=== PATIENT | male | born 1945 | race Caucasian/White ===

== ENCOUNTER 2021-02-16 06:46 | Day surgery (SDC) | payer BC ==
--- NOTE | 2021-02-14 11:29 | EKG ---
Test Date: 2021-02-13 Test Time: 14:06:11 Erp Project Manager: MORELIA MEASUREMENT RESULTS: Intervals: Rate: 68 HI: 142 QRSD: 88 QT: 406 QTc: 431 [place]: P: 68 HI: 142 QRS: 48 T: 34 INTERPRETIVE STATEMENTS: Normal sinus rhythm Normal ECG Compared to ECG 03/18/2005 15:03:00 No significant changes Electronically Signed On 02-14-21 11:26:43 CDT by Eric Edmond
[2021-02-16] MEDS ORDERED: FENTANYL CITR 100 MCG/2 ML ONE (07:24)
[2021-02-16] MEDS ORDERED: dexAMETHasone 10 MG/ML VIAL ONE (07:26)
[2021-02-16] MEDS ORDERED: MIDAZOLAM HCL 2 MG/2 ML INJ ONE (07:26)
[2021-02-16] MEDS ORDERED: ROCURONIUM 50 MG/5 ML VIAL IV ONE (07:26)
[2021-02-16] MEDS ORDERED: propofoL 200 MG/20 ML VIAL IV ONE (07:26)
[2021-02-16] MEDS ORDERED: LIDOCAINE 2% MPF 5 ML VIAL ONE (07:26)
[2021-02-16] MEDS ORDERED: Ringers Lactate 1,000 ML IV ONE (07:32)
[2021-02-16] MEDS ORDERED: LIDOCAINE 1% W/EPI 1:100,000 MDV 20 ML VIAL ONE (07:49)
[2021-02-16] MEDS ORDERED: EPINEPHRINE/PF 1 MG/ML AMP ONE (07:49)
--- NOTE | 2021-02-16 08:44 | P.BOP ---
Preoperative diagnosis: neoplasm uncertain behavior, larynx (epiglottis) Postoperative diagnosis: same Primary procedure: DL with telescope and biopsy Pipe Joints Supervisor: NONE,NONE Estimated blood loss: <5ml Specimen: left lingual surface of epiglottis Findings: small rounnd nodule of epiglottis, radiation changes to larynx and neck Anesthesia: General Complications: None Implants: none Fluids & blood products: crystalloid 700ml Transferred to: Recovery Room Condition: Good
[2021-02-16] MEDS ORDERED: GLYCOPYRROLATE 0.2 MG/ML SYR ONE (08:50)
[2021-02-16] MEDS ORDERED: NEOSTIGMINE 1 MG/ML -5 ML ONE (08:50)
[2021-02-16 10:04] VITALS: BP 115/58; TEMP 97.4; O2SAT 99
--- NOTE | 2021-02-16 11:46 | OP ---
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 Procedure: Direct laryngoscopy with telescope and biopsy. Indication For Procedure: Mr. Morales was evaluated by his PCP with some concern for palpable abnormalit y of the right neck and was referred back to his radiation oncologist, Dr. De León. He performed a flexible laryngoscopy and CT scan of the neck and noted a lesion of the epiglottis [facility] An office flexible laryngoscopy by ma demonstrated a small round nodular versus warty appearing lesion on the lingual surface of the left epiglottis and soft tissue radiatio n changes consistent with his history of prior radiation therapy for head and neck cancer. Due to hi s history, a recommendation was made for operative intervention including biopsy. Description Of Procedure In Detail: The patient was brought to the operating room. He was placed un ankush general anesthesia via oral endotracheal tube. A small shoulder roll was placed and the neck was extended and head supported. He was noted to be somewhat of a difficult intubation due to decreased extension of the neck and anterior placement of the larynx. A direct laryngoscopy was performed usi ng the Krishna laryngoscope. The true vocal folds were difficult to visualize due to the obstructio n from the endotracheal tube, and due to the previous flexible laryngoscopy with visualizations of th e vocal cords, this was not removed. The arytenoids did not have any mucosal lesions, though the are a did appear fibrotic consistent with history of radiation. The epiglottis was well visualized using the Krishna laryngoscope and a 15 degree rigid scope was used to perform photo documentation. The lesion was then grasped with a large cup forceps and a laryngeal scissors angled to the left was used to incise the mucosa surrounding the lesion until it was removed in its entirety. An epinephrine-so aked cottonoid was placed over the biopsy site for several minutes to aid in hemostasis. The specime n was sent to Pathology for permanent section. After removal of the pledget, the area appeared hemos tatic and additional photo documentation of the biopsy site was obtained. The Krishna was removed. The lips, tongue, gingiva, and mandible and remaining teeth all appeared without significant abnorma lity or evidence of injury. The patient was returned to care of Anesthesia for awakening and extubat ion in the operating room, which proceeded without difficulty. Complications: None. Fluids: 700 mL crystalloid. Estimated Blood Loss: Less than 5 mL. Disposition: The patient will be discharged home later today and follow up with Dr. Nelson's office in about 10 days to review the pathology results. BECKY/MEEK Voice ID: [id number] Report ID: [id number]
== END 2021-02-16 09:53 | disposition home or self-care (01) ==
LOC: OR 06:46
PROVIDERS: ATTEND Otolaryngology
PROC: 0CBR8ZX Excision of Epiglottis, Via Natural or Artificial Opening Endoscopic, Diagnostic (ICD-10-PCS; principal; 2021-02-16 07:45)
DX: D38.0 Neoplasm of uncertain behavior of larynx (principal); Z20.822 Contact with and (suspected) exposure to COVID-19; Z85.810 Personal history of malignant neoplasm of tongue
CPT/HCPCS: 93005; 88305; 31536; U0003; J2704; J0171; J2250; J3010; J1100; J2710; J7120

== ENCOUNTER 2024-07-11 01:19 | Inpatient (IN) | payer OTHER ==
[2024-07-11 02:27] LABS: Absolute Eosinophils 0.2 K/uL (0-0.5); Absolute Lymphocytes (CBC) 0.8 K/uL (0.7-4.9); Absolute Neutrophil 10.3 K/uL (1.8-8.0); Basophils % 0.3 % (0-1.3); Eosinophils % 1.7 % (0-4.4); Hemoglobin 13.3 g/dL (13.6-17.9); Lymphocytes % 6.6 % (15.3-44.8); MCH 32.6 pg (27.0-35.0); MCV 95.8 fL (80-100); MPV 8.5 fL (7.6-11.3); Monocytes % 8.1 % (3.3-12.3); Neutrophils % 83.3 % (41.7-73.7); Platelets 142 thou/uL (152-406); RBC Red Blood Cell Count 4.07 M/uL (4.33-5.43); Red Cell Distribution Width 13.8 % (12.1-15.2)
[2024-07-11 02:48] LABS: Albumin 3.2 g/dL (3.4-5.0); Albumin/Globulin Ratio 0.8 (1.1-1.8); Anion Gap 7.8 mEq/L (5.0-15.0); Bilirubin Total 0.7 mg/dL (0.2-1.0); Globulin 3.9 g/dL (2.3-3.5); Potassium 3.8 mEq/L (3.5-5.1); Protein, Total 7.1 g/dL (6.4-8.2); Troponin High Sensitivity 7.4 pg/mL (<58.9)
[2024-07-11 02:53] LABS: PT Prothrombin Time 11.3 SECONDS (9.4-12.5); PTT, Activated Partial Thromb 31.1 SECONDS (24.3-36.9); Protime INR 1.08
[2024-07-11 02:54] LABS: Arterial Blood Carboxyhemoglob 1.1 % (0-1.5); Blood Gas Oxyhemoglobin 89.7 % (94-97); Blood Gas THB 12.9 g/dl (12-18); Blood O2 Saturation 92.6 % (92-98.5)
[2024-07-11] MEDS ORDERED: ONDANSETRON 4 MG/2 ML VIAL ONE (03:10)
[2024-07-11] MEDS ORDERED: VANCOMYCIN 1 GM/VIAL ONE (03:10)
[2024-07-11] MEDS ORDERED: GUAIFENESIN/DM 5 ML UCUP ONE (03:11)
[2024-07-11] MEDS ORDERED: ACETAMINOPHEN 500 MG TAB ONE (03:11)
[2024-07-11] MEDS ORDERED: NA CHLORIDE 0.9% 100 ML ONE ×2 (03:12→11:25)
[2024-07-11] MEDS ORDERED: NA CHLORIDE 0.9% 1,000 ML ONE ×2 (03:12→07:23)
[2024-07-11] MEDS ORDERED: NA CHLORIDE 0.9% 250 ML ONE (03:12)
[2024-07-11] MEDS ORDERED: CEFEPIME 1 GM/VIAL ONE (03:13)
[2024-07-11] MEDS: guaiFENesin 100 MG/5 ML UCUP ONE (03:15)
[2024-07-11] MEDS: GUAIFENESIN/DM 5 ML UCUP ONE (03:21)
[2024-07-11] MEDS ORDERED: ALBUTEROL 2.5 MG/3 ML NEB SOL ONE ×3 (04:12→11:36)
[2024-07-11] MEDS ORDERED: IPRATROPIUM BROM 0.5MG/2.5ML ONE ×2 (04:13→07:23)
[2024-07-11 05:43] LABS: Specific Gravity > 1.030 (1.005-1.030); Urine Bilirubin NEGATIVE (Negative); Urine Blood Negative (Negative); Urine Clarity Clear (Clear); Urine Color Colorless (Yellow); Urine Glucose NEGATIVE (Negative); Urine Ketones NEGATIVE (Negative); Urine Microscopic Reflex YN NO UMIC; Urine Nitrite NEGATIVE (Negative); Urine Protein NEGATIVE (Negative); Urine Urobilinogen Normal (Normal)
--- NOTE | 2024-07-11 06:07 | EDPHYS ---
Physician Documentation [facility] Name: Thad Morales Age: 78 yrs Sex: Male : 1945 Arrival Date: 07/11/2024 Time: 01:19 Bed 20 Private MD: Rj Small ED Physician Doug Gold HPI: 07/11 01:27 This 78 yrs old Male presents to ER via Unassigned with complaints of Fever, sp4 Chest Congestion. 05:50 Patient presents with fever cough and chest discomfort.. sp4 06:07 78-year-old male with history of NM, throat cancer and pneumonia presents with sp4 worsening fever chest congestion and shortness of breath.. Historical: - Allergies: :28 No Known Allergies; ha1 - PMHx: 01:28 Myocardial infarction; Pneumonia; THROAT CANCER; ha1 - PSHx: 01:28 HEART BYPASS 2017; ha1 - Immunization history:: Adult Immunizations up to date. - Infectious Disease History:: Denies. - Social history:: Smoking status: Patient denies any tobacco usage or history of. - Family history:: not pertinent. ROS: 06:07 Constitutional: Positive fever, positive congestion, positive chest discomfort, sp4 positive shortness of breath 06:07 All other systems are negative, Exam: 06:05 Constitutional: This is a well developed, well nourished patient who is awake, alert, sp4 and in no acute distress. Head/Face: Normocephalic, atraumatic. Eyes: Pupils equal round and reactive to light, extra-ocular motions intact. Lids and lashes normal. Conjunctiva and sclera are not injected. Cornea within normal limits. Periorbital areas with no swelling, redness, or edema. ENT: Nares patent. No nasal discharge, no septal abnormalities noted. Tympanic membranes are normal and external auditory canals are clear. Oropharynx with no redness, swelling, or masses, exudates, or evidence of obstruction, uvula midline. Mucous membranes moist. Neck: Trachea midline, no thyromegaly or masses palpated, and no cervical lymphadenopathy. Supple, full range of motion without nuchal rigidity, or vertebral point tenderness. Chest/axilla: Normal chest wall appearance and motion. Nontender with no deformity. No lesions are appreciated. Cardiovascular: Regular rate and rhythm with a normal S1 and S2. No gallops, murmurs, or rubs. Normal PMI, no JVD. No pulse deficits. Respiratory: Lungs have equal breath sounds bilaterally, clear to auscultation and percussion. No rales, rhonchi or wheezes noted. No increased work of breathing, no retractions or nasal flaring. Abdomen/GI: Soft, with normal bowel sounds. No distension or tympany. No guarding or rebound. No evidence of tenderness throughout. Back: No spinal tenderness. No costovertebral tenderness. Skin: Warm, dry with normal turgor. Normal color with no rashes, no lesions, and no evidence of cellulitis. MS/ Extremity: Pulses equal, no cyanosis. Neurovascular intact. Full, normal range of motion. Neuro: Awake and alert, GCS 15, oriented to person, place, time, and situation. Cranial nerves II-XII grossly intact. Motor strength 5/5 in all extremities. Sensory grossly intact. Psych: Awake, alert, with orientation to person, place and time. Behavior, mood, and affect are within normal limits 06:05 ECG was reviewed by the Attending Physician. EKG 0 356 normal sinus rhythm rate 99. Vital Signs: 01:22 BP 134 / 68; Pulse 113; Resp 20 S; Temp 100.2(O); Pulse Ox 89% on R/A; Weight 49.44 kg; ha1 Height 5 ft. 7 in. ; 02:15 BP 128 / 70; Pulse 104; Resp 19 S; Pulse Ox 96% on 2 lpm NC; ha1 03:15 BP 118 / 66; Pulse 101; Resp 19 S; Pulse Ox 96% on 2 lpm NC; ha1 01:22 Body Mass Index 17.07 (49.44 kg, 170.18 cm) ha1 [place] Coma Score: 01:30 Eye Response: spontaneous(4). Motor Response: obeys commands(6). Verbal Response: ay oriented(5). Total: 15. 06:05 Eye Response: spontaneous(4). Motor Response: obeys commands(6). Verbal Response: sp4 oriented(5). Total: 15. MDM: 01:33 Medical Screening Exam initiated sp4 06:05 Data reviewed: vital signs, nurses notes, lab test result(s), EKG, radiologic studies, sp4 CT scan. 07/11 01:28 Order name: Influenza Screen (a \T\ B) sp4 07/11 01:47 Order name: Blood Culture Adult (2) sp4 07/11 01:47 Order name: CBC with Diff; Complete Time: 02:49 sp4 07/11 01:47 Order name: CMP; Complete Time: 05:49 sp4 07/11 01:47 Order name: Lactate w/ 2H reflex if indic.; Complete Time: 05:49 sp4 07/11 01:47 Order name: Protime (+inr); Complete Time: 05:49 sp4 07/11 01:47 Order name: Ptt, Activated; Complete Time: 05:49 sp4 07/11 01:47 Order name: Urinalysis w/ reflexes; Complete Time: 05:49 sp4 07/11 01:47 Order name: ABG; Complete Time: 05:49 sp4 07/11 01:47 Order name: Troponin High Sensitivity; Complete Time: 05:49 sp4 07/11 01:47 Order name: BNP; Complete Time: 05:49 sp4 07/11 04:17 Order name: Glucose, Ancillary Testing; Complete Time: 05:49 EDMS 07/11 08:23 Order name: SARS RAPID aa5 07/11 08:23 Order name: RSV aa5 07/11 09:06 Order name: SARS-COV-2 Antigen Rapid EDLA 07/11 09:07 Order name: Respiratory Syncytial Virus Ag EDLA 07/11 01:53 Order name: CT Chest, Abdomen, Pelvis - W/Contrast sp4 07/11 01:47 Order name: EKG; Complete Time: 01:47 sp4 07/11 01:47 Order name: Accucheck; Complete Time: 03:46 sp4 07/11 01:47 Order name: Cardiac monitoring; Complete Time: 02:11 sp4 07/11 01:47 Order name: EKG - Nurse/Tech; Complete Time: 04:00 sp4 07/11 01:47 Order name: IV Saline Lock - Large Bore; Complete Time: 03:45 sp4 07/11 01:47 Order name: Labs collected and sent; Complete Time: 02:10 sp4 07/11 01:47 Order name: O2 Per Protocol; Complete Time: 02:10 sp4 07/11 01:47 Order name: O2 Sat Monitoring; Complete Time: 02:11 sp4 07/11 01:47 Order name: Vital Signs; Complete Time: 03:45 sp4 EC:56 Rate is 99 beats/min. Rhythm is regular, Normal Sinus Rhythm. QRS [place] is Normal. MO sp4 interval is normal. QRS interval is normal. QT interval is normal. No Q waves. T waves are Normal. No ST changes noted. Clinical impression: No evidence of ischemia. Interpreted by me. Reviewed by me. Administered Medications: 03:35 Drug: Cefepime IVPB 1 grams IVPB at 200 ml/hr once over 30 mins; (mix in NS 100 mL) ay Route: IVPB; Rate: 200 ml/hr; Infused Over: 30 mins; Site: left forearm; 04:09 Follow up: Response: No adverse reaction; IV Status: Completed infusion; IV Intake: ay 100ml 03:35 Drug: Ondansetron IVP 4 mg IVP once; over 2 minutes Route: IVP; Site: left forearm; ay 04:09 Follow up: Response: No adverse reaction ay 03:36 Drug: NS 0.9% IV (30 ml/kg) 30 ml/kg IV at bolus once; Sepsis Protocol; to be given as ay a bolus over 90 minutes Route: IV; Rate: bolus; Site: left forearm; 04:09 Drug: Acetaminophen PO 1000 mg PO once Route: PO; ay 04:10 Drug: Dextromethorphan-Guaifenesin PO Liquid 10 mg-100 mg/5 mL 10 ml PO once Route: PO; ay 04:27 Follow up: Response: No adverse reaction ay 04:19 Drug: Albuterol Inhalation 2.5 mg Inhalation once Route: Inhalation; ay 04:19 Drug: Ipratropium Inhalation Aerosol 0.5 mg Inhalation once Route: Inhalation; ay 07:19 Drug: vancoMYCIN IVPB 1 grams IVPB once over 2 hrs Route: IVPB; Infused Over: 2 hrs; ay Site: left forearm; 07:37 Drug: Albuterol Inhalation 2.5 mg Inhalation once Route: Inhalation; aa5 07:37 Drug: Ipratropium Inhalation Aerosol 0.5 mg Inhalation once Route: Inhalation; aa5 07:38 Drug: NS 0.9% IV 1000 ml IV at 100 ml/hr Per protocol; to be given as a bolus over 60 aa5 minutes {Note: administered at 100mls/hr .} Route: IV; Rate: 100 ml/hr; Site: left forearm; Disposition Summary: 07/11/24 06:07 Hospitalization Ordered Notes: Hospitalization Status: Inpatient Admission sp4 Provider: Rj Small sp4 Condition: Fair sp4 Problem: new sp4 Symptoms: have improved sp4 Bed/Room Type: Standard sp4 Location: Telemetry/MedSurg (Inpatient)(07/11/24 14:15) eb Room Assignment: [facility](07/11/24 14:17) eb Diagnosis - Acute multifocal pneumonia, hypoxemia sp4 Forms: - Medication Reconciliation Form sp4 - SBAR form sp4 - Leadership Thank You Letter sp4 Signatures: Dispatcher [employer] EDMS Paty Menard, RN RN [email or web address] Jo Gutierrez Heidy RN RN ha1 Doug Gold MD MD sp4 Mayco Wayne RN KENYA ay Corrections: (The following items were deleted from the chart) 01:53 01:53 Chest Abdomen Pelvis W Con+CT.RAD.BRZ ordered. EDMS EDMS 10:06 06:07 Telemetry/MedSurg (Inpatient) sp4 eb 10:06 06:07 sp4 eb 14:15 10:06 BR ER HOLD eb eb 14:15 10:06 ERHOLD- eb eb 14:17 14:15 403 eb eb
--- NOTE | 2024-07-11 06:07 | ER ---
Nurse's Notes [facility] Name: Thad Morales Age: 78 yrs Sex: Male : 1945 Arrival Date: 07/11/2024 Time: 01:19 Bed 20 Private MD: Rj Small Diagnosis: Acute multifocal pneumonia, hypoxemia Presentation: 07/11 01:22 Chief complaint: Patient states: COUGH, FEVER, NASAL CONGESTION, AND DIFFICULTY ha1 BREATHING. 01:22 Coronavirus screen: Client denies travel out of the [place] in the last 14 days. Ebola ha1 Screen: No symptoms or risks identified at this time. Initial Sepsis Screen: Does the patient meet any 2 criteria? No. Patient's initial sepsis screen is negative. Does the patient have a suspected source of infection? No. Patient's initial sepsis screen is negative. Risk Assessment: Do you want to hurt yourself or someone else? Patient reports no desire to harm self or others. Onset of symptoms was July 11, 2024. 01:22 Method Of Arrival: Ambulatory ha1 01:22 Acuity: ADARSH 2 ha1 01:57 Initial Sepsis Screen: Does the patient meet any 2 criteria? Temp <36.0*C (96.8*F)) or ha1 > 38.3*C (100.9*F). HR > 90 bpm. Yes. Triage Assessment: :28 General: Appears uncomfortable, Behavior is cooperative. Pain: Denies pain. Neuro: ha1 Level of Consciousness is awake, alert, obeys commands, Oriented to person, place, time, situation. Cardiovascular: Capillary refill < 3 seconds Patient's skin is warm and dry. Respiratory: Reports shortness of breath at rest on exertion cough that is dry, hacking, persistent Airway is patent Respiratory effort is even, unlabored, Respiratory pattern is regular, symmetrical. Historical: - Allergies: : No Known Allergies; ha1 - PMHx: :28 Myocardial infarction; Pneumonia; THROAT CANCER; ha1 - PSHx: 01:28 HEART BYPASS 2017; ha1 - Immunization history:: Adult Immunizations up to date. - Infectious Disease History:: Denies. - Social history:: Smoking status: Patient denies any tobacco usage or history of. - Family history:: not pertinent. Screenin:06 [facility] ED Fall Risk Assessment (Adult) History of falling in the last 3 months, ha1 including since admission No falls in past 3 months (0 pts) Confusion or Disorientation No (0 pts) Intoxicated or Sedated No (0 pts) Impaired Gait No (0 pts) Mobility Assist Device Used No (0 pt) Altered Elimination No (0 pt) Score/Fall Risk Level 0 - 2 = Low Risk Oriented to surroundings, Maintained a safe environment, Educated pt \T\ family on fall prevention, incl call for assistance when getting out of bed, Hourly rounding (assess needs \T\ fall precautionary measures) done. Abuse screen: Denies threats or abuse. Denies injuries from another. Nutritional screening: No deficits noted. Tuberculosis screening: No symptoms or risk factors identified. Assessment: 01:30 General: Appears in no apparent distress. uncomfortable, Behavior is calm, cooperative. ay Pain: Denies pain. Neuro: Level of Consciousness is awake, alert, obeys commands, Oriented to person, place, time, situation. Cardiovascular: Denies chest pain, nausea, shortness of breath, vomiting, Capillary refill < 3 seconds. Respiratory: Reports cough that is non-productive, Airway is patent Respiratory effort is even, unlabored, Respiratory pattern is regular, symmetrical. GI: No signs and/or symptoms were reported involving the gastrointestinal system. : No signs and/or symptoms were reported regarding the genitourinary system. EENT: No signs and/or symptoms were reported regarding the EENT system. Derm: No signs and/or symptoms reported regarding the dermatologic system. Vital Signs: 01:22 BP 134 / 68; Pulse 113; Resp 20 S; Temp 100.2(O); Pulse Ox 89% on R/A; Weight 49.44 kg; ha1 Height 5 ft. 7 in. ; 02:15 BP 128 / 70; Pulse 104; Resp 19 S; Pulse Ox 96% on 2 lpm NC; ha1 03:15 BP 118 / 66; Pulse 101; Resp 19 S; Pulse Ox 96% on 2 lpm NC; ha1 01:22 Body Mass Index 17.07 (49.44 kg, 170.18 cm) ha1 [place] Coma Score: 01:30 Eye Response: spontaneous(4). Motor Response: obeys commands(6). Verbal Response: ay oriented(5). Total: 15. 06:05 Eye Response: spontaneous(4). Motor Response: obeys commands(6). Verbal Response: sp4 oriented(5). Total: 15. ED Course: 01:23 Patient arrived in ED. gm2 01:24 Rj Small MD is Private Physician. gm2 01:27 Doug Gold MD is Attending Physician. sp4 01:28 Patient has correct armband on for positive identification. Bed in low position. Call ha1 light in reach. Side rails up X 1. Adult w/ patient. 01:28 Provided Education on: plan of care . ha1 01:30 EKG done, by ED staff, reviewed by Doug Gold MD. Inserted saline lock: 20 gauge ay in left forearm, using aseptic technique. Oxygen administration via nasal cannula \T\ 2L/min. 01:51 Triage completed. ha1 02:00 First set of blood cultures drawn by me. vk 02:10 BNP Sent. vk 02:10 Troponin High Sensitivity Sent. vk 02:10 CBC with Diff Sent. vk 02:10 CMP Sent. vk 02:10 Blood Culture Adult (2) Sent. vk 02:11 Protime (+inr) Sent. vk 02:11 Ptt, Activated Sent. vk 02:11 Missed attempt(s): 20 gauge Bleeding controlled, band aid applied, catheter tip intact. vk 02:12 Initial lab(s) drawn, by me, sent to lab. vk 03:03 Mayco Wayne, RN is Primary Nurse. ay 03:36 CT Chest, Abdomen, Pelvis - W/Contrast In Process Unspecified. EDMS 06:06 Rj Small MD is Hospitalizing Provider. sp4 08:00 No provider procedures requiring assistance completed. Patient admitted, IV remains in aa5 place. Administered Medications: 03:35 Drug: Cefepime IVPB 1 grams IVPB at 200 ml/hr once over 30 mins; (mix in NS 100 mL) ay Route: IVPB; Rate: 200 ml/hr; Infused Over: 30 mins; Site: left forearm; 04:09 Follow up: Response: No adverse reaction; IV Status: Completed infusion; IV Intake: ay 100ml 03:35 Drug: Ondansetron IVP 4 mg IVP once; over 2 minutes Route: IVP; Site: left forearm; ay 04:09 Follow up: Response: No adverse reaction ay 03:36 Drug: NS 0.9% IV (30 ml/kg) 30 ml/kg IV at bolus once; Sepsis Protocol; to be given as ay a bolus over 90 minutes Route: IV; Rate: bolus; Site: left forearm; 04:09 Drug: Acetaminophen PO 1000 mg PO once Route: PO; ay 04:10 Drug: Dextromethorphan-Guaifenesin PO Liquid 10 mg-100 mg/5 mL 10 ml PO once Route: PO; ay 04:27 Follow up: Response: No adverse reaction ay 04:19 Drug: Albuterol Inhalation 2.5 mg Inhalation once Route: Inhalation; ay 04:19 Drug: Ipratropium Inhalation Aerosol 0.5 mg Inhalation once Route: Inhalation; ay 07:19 Drug: vancoMYCIN IVPB 1 grams IVPB once over 2 hrs Route: IVPB; Infused Over: 2 hrs; ay Site: left forearm; 07:37 Drug: Albuterol Inhalation 2.5 mg Inhalation once Route: Inhalation; aa5 07:37 Drug: Ipratropium Inhalation Aerosol 0.5 mg Inhalation once Route: Inhalation; aa5 07:38 Drug: NS 0.9% IV 1000 ml IV at 100 ml/hr Per protocol; to be given as a bolus over 60 aa5 minutes {Note: administered at 100mls/hr .} Route: IV; Rate: 100 ml/hr; Site: left forearm; Medication: 04:07 VIS not applicable for this client. ha1 Intake: 04:09 IV: 100ml; Total: 100ml. ay Outcome: 06:07 Decision to Hospitalize by Provider. sp4 08:00 Admitted to ER Hold. Please see [facility] for further documentation. aa5 08:00 Condition: stable 08:00 Instructed on the need for admit, Demonstrated understanding of instructions, 15:31 Patient left the ED. aa5 Signatures: Dispatcher [employer] EDMS Paty Menard RN RN aa5 Janny Faagn RN RN ha1 Doug Gold MD MD sp4 Kimberly Hawkins gm2 Marilyn Ashford Awudu, RN RN ay Corrections: (The following items were deleted from the chart) 07:38 07:38 NS 0.9% IV 1000 ml IV at 100 ml/hr in left forearm aa5 aa5
--- NOTE | 2024-07-11 06:28 | RAD REPORT ---
EXAM: CT CHEST, ABDOMEN AND PELVIS WITHOUT CONTRAST CLINICAL INDICATION: Male, 78 years pneumonia TECHNIQUE: CT chest, abdomen and pelvis was performed, with IV contrast, as per department protocol. Axial, sagittal and coronal reconstructions were obtained. One or more of the following dose reduction techniques were used: Automated exposure control, adjustment of the mA and/or kV according to the patient size, and/or iterative reconstruction. Unless otherwise specified, incidental findings do not require dedicated imaging follow-up. [id number]. COMPARISON: No prior exam. FINDINGS: Chest: LOWER NECK: Visualized thyroid gland and soft tissues are normal. LUNGS AND AIRWAYS: Pulmonary fibrotic changes. With evaluation limited due to motion. No definite acu te process.Motion artifact limits evaluation for pulmonary nodule detection. PLEURA: No pleural effusion. No pneumothorax. Hemidiaphragms are normally positioned. MEDIASTINUM AND LYMPH NODES: Mediastinal lymphadenopathy is present. For example, a paratracheal lymp h node measures 12 mm. Hiatal hernia present. There is some fluid in the esophagus which appears diffusely thickened. Mild hilar adenopathy is also present. THORACIC AORTA: No thoracic aortic aneurysm. Atherosclerotic changes are present. PULMONARY ARTERIES: Caliber is within normal limits. HEART: Mild cardiomegaly. Multivessel coronary artery diseaseNo significant pericardial effusion. Abdomen/Pelvis UPPER GI: No significant abnormality. LIVER: No significant focal abnormality. GALLBLADDER/BILE DUCTS: No biliary ductal dilatation.? PANCREAS: No mass, ductal dilation, or aydee-pancreatic fluid. SPLEEN: Unremarkable. ADRENALS: No adrenal masses. KIDNEYS AND URETERS: No hydronephrosis.Low density and/or too small to characterize renal lesions whi ch are statistically benign. ABDOMINAL AORTA AND OTHER VESSELS: Mild atherosclerotic changes. PERITONEUM: No abnormal free fluid. No free air. LYMPH NODES: No pathologic lymphadenopathy. ABDOMINAL WALL: Fat-containing left inguinal hernia. SMALL BOWEL/COLON: Small bowel has normal course and caliber. No colonic wall thickening or pericolon ic inflammatory changes.Normal appendix. URINARY BLADDER: Underdistended but grossly unremarkable. REPRODUCTIVE ORGANS: No pathologic process. MUSCULOSKELETAL: Multilevel degenerative changes in the spine. No acute fracture. Sternotomy. ADDITIONAL FINDINGS: None. IMPRESSION: 1. No definite evidence of pneumonia. Lung changes appear chronic likely reflecting a pulmonary fibro tic process which is not well well assessed due to motion. No convincing evidence of pneumonia. 2. A small fluid distended hiatal hernia is present as well as some fluid within the esophagus which could reflect gastroesophageal reflux. Chronic aspiration could explain some of the lung findings. 3. Mediastinal and hilar lymphadenopathy which may is symmetric and likely related to underlying lung disease. 4. No acute findings in the abdomen or pelvis.
[2024-07-11] MEDS ORDERED: ACETAMINOPHEN 325 MG TABLET PO PRN (08:00)
[2024-07-11] MEDS ORDERED: D5 0.45 NS 1,000 ML IV SCH (08:00)
[2024-07-11] MEDS ORDERED: ONDANSETRON 4 MG/2 ML VIAL IV PRN (08:00)
[2024-07-11 09:06] LABS: SARS-CoV-2 Antigen CONTROL BLUE LINE VIS/BG OK; SARS-CoV-2 Antigen Rapid Res Negative (Negative)
[2024-07-11] MEDS ORDERED: METHYLPREDNISOLONE 40 MG INJ ONE (11:25)
[2024-07-11] MEDS ORDERED: ASPIRIN EC 81 MG TAB PO ONE (11:25)
[2024-07-11] MEDS ORDERED: AMLODIPINE 5 MG TAB ONE (11:25)
[2024-07-11] MEDS ORDERED: PIPERACIL/TAZO 3.375 GM VIAL IV ONE (11:25)
[2024-07-11] MEDS: ASPIRIN EC 81 MG TAB PO SCH (11:40)
[2024-07-11] MEDS: METHYLPREDNISOLONE 40 MG INJ IV SCH (11:40)
[2024-07-11] MEDS: AMLODIPINE 5 MG TAB PO SCH (11:40)
[2024-07-11] MEDS: PIPER TAZO 3.375 GM in NA CHLORIDE 0.9% 100 ML IV SCH (11:40)
[2024-07-11] MEDS: DULERA 200/5 (MOMETASONE/FORMOTEROL) INHALER IH SCH (13:30)
[2024-07-11] MEDS ORDERED: PNEUMOCOCCAL VACCINE 0.5 ML IMVAC ONE (14:00)
[2024-07-11] MEDS: ALBUTEROL 2.5 MG/3 ML NEB SOL NEB SCH (21:08)
[2024-07-11] MEDS: ATORVASTATIN 80 MG TAB PO SCH (21:12)
--- NOTE | 2024-07-11 23:01 | HP ---
Date of Admission: 07/11/2024 Chief Complaint: Fever, cough, congestion, shortness of breath. History Of Present Illness: 78-year-old pleasant male patient who got sick about a month ago around Adam time while he was in [place], with cough, congestion, fever, coughing up some colored mucus. [facility], was diagnosed as having pneumonia after getting a chest x-ray, a nd was prescribed some cough medicine and amoxicillin for about 10 days. He took it and got better, and was doing fine in his usual state of health. Yesterday, he worked outside in the yard, cleaning up some trees and some debris in his yard. Later on, evening time or last night, he started to have cough, chest congestion, fever, and wheezing with some shortness of breath. With these symptoms, he came into emergency room and after he was evaluated in the ER, the emergency room physician contacted me requesting admission to hospital with pneumonia. When I saw him, he was still in the emergency r oom this morning and his was with him at bedside. Allergies: NO KNOWN ALLERGIES. Medications: Aspirin 81 mg daily, atorvastatin 80 mg daily, amlodipine 5 mg daily, vitamin D3 1000 u nits daily, levothyroxine 75 mcg daily, and pantoprazole 40 mg daily. Review of Systems: Respiratory: As mentioned above. Constitutional: As mentioned above. All other systems reviewed and negative. Past Medical History: Significant for hypothyroidism, hypertension, mixed hyperlipidemia, coronary a rtery disease, benign prostatic hypertrophy, thrombocytopenia, carotid artery stenosis, impaired fast ing glucose, and tongue cancer. Tongue cancer was diagnosed in 2005 and was treated with chemotherap y and radiation therapy. Past Surgical History: Significant for tonsillectomy. Family History: Parents , and Mother had dementia. Otherwise, family history is not pertinent. Social History: Negative for smoking. Use of alcohol, negative. Physical Examination: Vital Signs: When he first came into emergency room, temperature 100.2 degrees Fahrenheit, respirato ry rate 20, pulse 113, blood pressure 134/68, oxygen saturation was 89%. Weight 49.44 kg, height 5 f eet 7 inches. General: Awake, alert, oriented, not in distress. HEENT: Head atraumatic, normocephalic. Conjunctivae nonerythematous. Sclerae white. Mouth, no thr ush or edema noted. Ears/Nose, no mass, lesion, discharge noted. Neck: Supple. No JVD, lymph nodes, bruit, thyromegaly noted. Lungs: The patient is not in any respiratory distress. Not using any accessory muscles of respirati on. Bilateral good equal air entry with presence of wheezing scattered in all the lung irvin and so me crackles in both lower lung irvin. Heart: Normal heart sounds, no murmur or gallop. Abdomen: Soft, bowel sounds normal. No guarding, rigidity, tenderness, mass, hepatosplenomegaly, dis tention, or bruit noted. Extremities: No leg edema. No calf tenderness. Skin: No rash, ulcer, cellulitis. Lymphatics: No lymph node enlargement in neck, supraclavicular, infraclavicular region. Neuro: No focal neurological deficit. Chest: Unremarkable. External Genitalia: Deferred. Rectal: Deferred. Laboratory Data: WBC 12.4, hemoglobin 13.3, platelets 142. Arterial blood gas: pH 7.44, pCO2 38, p O2 66.3, oxygen saturation 92.6% on 28% FiO2. Sodium 137, potassium 3.8, chloride 104, bicarb 29, BU N 26, creatinine 0.98, glucose 131. Lactic acid 1.2. Liver function test unremarkable. ProBNP 356. Troponin 7.4. Urinalysis negative. CAT scan of the chest, abdomen, and pelvis done in the emergen cy room shows evidence of aortic atherosclerosis, coronary artery disease, renal cyst, mediastinal ly mphadenopathy, and pulmonary fibrotic changes. No evidence of any obvious consolidation. Impression: 1. Acute respiratory failure with hypoxia. 2. Acute exacerbation of chronic obstructive pulmonary disease. 3. Rule out pneumonia. 4. Hypothyroidism. 5. Mixed hyperlipidemia. 6. Hypertension. 7. Coronary artery disease. 8. Impaired fasting glucose. 9. Benign prostatic hypertrophy. 10. Thrombocytopenia. 11. Carotid artery stenosis. 12. Tongue cancer. Plan: We will go ahead and admit the patient to hospital for further evaluation and management of th is problem. The patient is appropriate for inpatient and is expected to spend 2 midn[facility] in the [facility]. At this time, there is no obvious evidence of any pneumonia, but he is at high risk and we wi ll monitor him for any development of pneumonia, but right now what I am concerned about definitely i s acute exacerbation of COPD and this is related to some acute bronchitis type of symptoms. He does not have any expectoration and he already received cefepime and vancomycin in the emergency room, so we will not be able to get any sputum testing done on him. We will continue to treat him empirically with antibiotics. I will go ahead and start him on Zosyn 3.375 g every 8 hours and also add IV Solu -Medrol 40 mg every 8 hours, and Dulera inhaler 2 puffs 2 times a day. Nebulizer treatment will be g iven per order. SCD was ordered for DVT prophylaxis. I have advised the patient in presence of his that he should not work outside in the yard and hire somebody to do his yard work and if he abso lutely wants to do it, then he must wear mask while he is working outside. Mediastinal lymphadenopat hy that we see could be very well reactive changes, but I have advised him to get a repeat CAT scan o f the chest in about 6 months or sometime in December. The patient and his will contact my office a s per my instruction today to get repeat CAT scan of the chest scheduled at that time for followup. Depending on that finding, we will decide if any further intervention needs to be done or not. For c oronary artery disease, no need for further intervention and will continue his aspirin therapy per or ankush. For hyperlipidemia, we will continue his statin therapy per order and no need for further inter vention. For hypertension, we will continue his amlodipine per order. Monitor blood pressure; if ne cessary, adjust medication. For gastroesophageal reflux disease, we will continue his pantoprazole a nd will not require any further intervention. Hypothyroidism is stable. We will continue his levoth yroxine per order and no need for further intervention. Total time spent today 80 minutes including communication with emergency room physician, review of em ergency room visit record, review of last office visit record from 04/07/2024, and performing today's evaluation and management. The patient has not had a COVID test or influenza A and B, or RSV test a nd I have requested nursing staff to send specimen for all these testing and we will follow up on [facility] results. JOHN/MODL Voice ID: [id number]
[2024-07-12] MEDS: LEVOTHYROXINE SOD 0.075 MG TAB PO SCH (05:51)
[2024-07-12 07:26] LABS: Absolute Lymphocytes (CBC) 0.7 K/uL (0.7-4.9); Absolute Monocytes 0.3 K/uL (0.1-1.3); Absolute Neutrophil 11.9 K/uL (1.8-8.0); Hematocrit 32.2 % (39.6-49.0); Lymphocytes % 5.5 % (15.3-44.8); MCH 32.7 pg (27.0-35.0); MCHC 34.2 g/dL (32.0-36.0); MCV 95.7 fL (80-100); MPV 9.2 fL (7.6-11.3); Monocytes % 2.1 % (3.3-12.3); Neutrophils % 92.4 % (41.7-73.7); Platelets 118 thou/uL (152-406); RBC Red Blood Cell Count 3.36 M/uL (4.33-5.43); Red Cell Distribution Width 13.8 % (12.1-15.2)
[2024-07-12 07:49] LABS: Anion Gap 8.9 mEq/L (5.0-15.0); Potassium 3.9 mEq/L (3.5-5.1)
[2024-07-12] MEDS: PANTOPRAZOLE 40MG TABLET PO SCH (08:17)
[2024-07-12] MEDS: ENSURE HIGH PROTEIN 237 ML CAN PO SCH (08:18)
[2024-07-12 11:16] LABS: Blood Morphology Comment NOT SEEN (NOT SEEN); Platelet Estimate ADEQ; White Blood Cell Scan OK (OK)
--- NOTE | 2024-07-12 18:11 | RAD REPORT ---
EXAM: Chest Single View HISTORY: R/O aspiration COMPARISON: 01/22/2021 FINDINGS: LUNGS/PLEURA: New moderate airspace disease in left midlung and left lung base. MEDIASTINUM: The mediastinal silhouette is within normal limits. CARDIAC: Stable size and configuration. UPPER ABDOMEN: No significant abnormality. BONES: Sternotomy. No acute abnormality. LINES/TUBES/OTHER: N/A IMPRESSION: New moderate left midlung and basilar airspace disease could reflect pneumonia or pneumonitis such as from aspiration. Typically, aspiration is right-sided but can be on the left depending on patient's positioning.
[2024-07-12] MEDS ORDERED: VANCOMYCIN IVPB SCH (19:00)
[2024-07-12] MEDS ORDERED: VANCOMYCIN 1.25 GM in NA CHLORIDE 0.9% 250 ML IVPB ONE (19:00)
[2024-07-12] MEDS ORDERED: NA CHLORIDE 0.9% IVPB SCH (19:00)
[2024-07-12] MEDS: FUROSEMIDE 20 MG/ 2ML VIAL IV ONE (19:03)
[2024-07-12] MEDS: D5 0.9 NS 1,000 ML IV SCH (19:04)
[2024-07-12] MEDS: Meropenem 1,000 MG in NA CHLORIDE 0.9% 100 ML IV SCH (20:21)
[2024-07-12] MEDS: LORazepam 2 MG/ML VIAL IV ONE (20:22)
[2024-07-12] MEDS: Levofloxacin 750mg IV 750 MG/150 ML BAG IV SCH (23:30)
[2024-07-13 05:59] LABS: Absolute Lymphocytes (CBC) 0.7 K/uL (0.7-4.9); Absolute Monocytes 0.4 K/uL (0.1-1.3); Absolute Neutrophil 8.5 K/uL (1.8-8.0); Hematocrit 34.3 % (39.6-49.0); Hemoglobin 11.6 g/dL (13.6-17.9); Lymphocytes % 7.5 % (15.3-44.8); MCH 32.5 pg (27.0-35.0); MCHC 33.7 g/dL (32.0-36.0); MCV 96.4 fL (80-100); MPV 8.5 fL (7.6-11.3); Monocytes % 4.5 % (3.3-12.3); Nucleated Red Blood Cells % 0.1 % (0-0); Platelets 153 thou/uL (152-406); RBC Red Blood Cell Count 3.56 M/uL (4.33-5.43); Red Cell Distribution Width 14.2 % (12.1-15.2)
[2024-07-13 06:11] LABS: Anion Gap 6.1 mEq/L (5.0-15.0); Potassium 4.1 mEq/L (3.5-5.1)
[2024-07-13] MEDS ORDERED: VANCOMYCIN 1 GM in NA CHLORIDE 0.9% 250 ML IVPB SCH ×2 (07:00→19:00)
--- NOTE | 2024-07-13 08:14 | P.CNS ---
Date of Consult: 07/13/24 Reason for Consult: Respiratory failure Chief Complaint: Shortness of breath cough History of Present Illness: Patient is 78 years of age he became sick about a month ago in [place] was treated with antibiotics improved interim 3 weeks labs and patient has a 10 acre lot and he was cutting chopping burning wood and suddenly became very short of breath ended up here in the emergency room was improving then deteriorated was transferred to the ICU no prior history of any pulmonary complaints patient does not smoke started having coughing and wheezing patient has had throat cancer and is prone to aspiration was started on BiPAP yesterday is feeling much better Allergies corn Allergy (Verified 02/26/23 15:05) Nausea/Vomiting tomato Allergy (Verified 02/26/23 15:05) Nausea/Vomiting Home Medications: Amlodipine Besylate 5 mg PO DAILY 02/13/21 Aspirin [Aspirin EC 81 MG] 81 mg PO DAILY 02/13/21 Atorvastatin Calcium [Lipitor] 80 mg PO DAILY 02/13/21 L.acidoph,Paracasei, B.lactis [Probiotic] 1 each PO DAILY 02/13/21 Levothyroxine [Synthroid] 75 mcg PO [id number] 02/13/21 Pantoprazole [Protonix Tab] 40 mg PO DAILY 02/13/21 - Past Medical/Surgical History -: [place] -: Pneumonia -: Throat Cancer -: 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 -: hypertension -: Heart Bypass 2017 Review of Systems 10-point ROS is otherwise unremarkable General: Weakness Respiratory: Cough, Shortness of Breath Physical Examination Temp Pulse Resp BP Pulse Ox 99.0 F 80 22 H 121/68 99 07/13/24 04:00 07/13/24 06:00 07/13/24 06:00 07/13/24 06:00 07/13/24 06:00 General: Alert, Oriented x3 Respiratory: Clear to auscultation bilaterally Cardiovascular: No edema, Regular rate/rhythm, Normal S1 S2 Gastrointestinal: Normal bowel sounds, Soft and benign - Problems (1) Pneumonia Current Visit: Yes Status: Acute Plan: Patient is 78 years of age admitted with acute onset of respiratory distress bilateral pulmonary infiltrate right greater than the left most prominent on the lower zones probably an atypical pneumonia add levofloxacin patient was started on BiPAP last night is improving can take off the BiPAP scheduled for some swallowing study labs chemistries reviewed his white count is declining back to normal patient is on steroids IV fluids change room attendant to p.o. prednisone tomorrow cultures are pending at the bedside Qualifiers: Pneumonia type: due to unspecified organism
--- NOTE | 2024-07-13 08:22 | RAD REPORT ---
EXAMINATION: ONE VIEW CHEST XR CLINICAL INDICATION: Male, 78 years old.,aspiration pneumonia TECHNIQUE: Frontal chest projection is submitted. Examination is limited by patient positioning and t echnique. COMPARISON: 07/12/2024 FINDINGS: Patchy left mid to lower lung airspace opacities, stable compared to prior exam. Background hyperluce ncy suggesting COPD. No pneumothorax or sizable effusion. The heart is normal in size. Mediastinal contours are unchanged with sequelae of median sternotomy. IMPRESSION: Stable patchy left mid to lower lung airspace opacities, concerning for pneumonia.
[2024-07-13] MEDS: ALBUTEROL 2.5 MG/3 ML NEB SOL NEB SCH (08:28)
[2024-07-13] MEDS: AMLODIPINE 5 MG TAB PO SCH (08:39)
[2024-07-13] MEDS: VANCOMYCIN 1 GM in NA CHLORIDE 0.9% 250 ML IVPB SCH (08:55)
[2024-07-13] MEDS: ENOXAPARIN 30 MG/0.3 ML SQ SCH (08:55)
--- NOTE | 2024-07-13 12:20 | EKG ---
Test Date: 2024-07-11 Test Time: 03:56:59 [employer] Solution Architect: BRITNEY MEASUREMENT RESULTS: Intervals: Rate: 99 IA: 134 QRSD: 84 QT: 348 QTc: 446 [place]: P: 53 IA: 134 QRS: 14 T: 17 INTERPRETIVE STATEMENTS: Normal sinus rhythm Possible Left atrial enlargement Cannot rule out Anterior infarct, age undetermined Abnormal ECG Compared to ECG 02/26/2023 15:14:30 Myocardial infarct finding now present Electronically Signed On 07-13-24 12:16:22 LOBBYIST by Frederick Orona
--- NOTE | 2024-07-13 14:19 | PN ---
Date of Progress Note: 07/12/2024 Subjective: The patient was seen twice today. When I saw him this morning, his was with him. He was feeling much better overnight. No new complaints or problems reported by him. Lying in bed, not in distress. Objective: Vital Signs: Reviewed. HEENT: Unremarkable. Lungs: Significant improvement in his wheezing and crackles. He was noted to have minimal wheezing and crackles in lower lung region. This was significantly better today than yesterday. He was not u sing any accessory muscles of respiration. Heart: Sounds normal. Abdomen: Soft. Bowel sounds normal. No guarding, rigidity, tenderness, distention. Extremities: No leg edema. Hospital Course: After I saw the patient this morning, I discussed with him regarding plan of treatm ent will be to continue current antibiotic, steroid, nebulizer treatment, and hopefully plan to disch arge him to go home tomorrow and my plan was to repeat chest x-ray later this evening. Sometime this evening, nurse called me and informed me that the patient had aspirated while he was eating and drin mena something and he was in respiratory distress when she called me. I immediately gave order to pu t him on no rebreather oxygen and transfer him to ICU and get a stat chest x-ray done. Soon after th e patient went to ICU, I saw him, he was in mild respiratory distress. Initially, he was on non-rebr eather oxygen upon arrival to ICU, but subsequently respiratory therapist and nurse was able to get h is oxygen down to nasal cannula oxygen and he was on 7 L/minute nasal cannula oxygen, but initially w hen I came into ICU, on 7 L he was maintaining around 90% to 92% oxygen saturation, but as I was kennedy richey there, he was dropping his oxygen saturation to 85% to 87% with minimal effort like talking. Hi s oxygen saturation was dropping, so we will increase his oxygen delivery and if that is not enough, then we will put him on non-rebreather oxygen. His examination in ICU, the patient was in mild respi ratory distress with use of accessory muscles of respiration. Lungs, diffuse crackles noted in all t he lung irvin with some wheezing. Heart sounds normal. Abdomen soft. Bowel sounds normal. No gua rding, rigidity, tenderness, distention. Extremities: No leg edema. Chest x-ray shows left lower l obe infiltrate. Impression: 1. Aspiration pneumonia. 2. Acute exacerbation of COPD. 3. Hypertension. 4. Coronary artery disease. 5. Hyperlipidemia. 6. Acute respiratory failure with hypoxia. Laboratory Data: This morning; WBC was 12.9, hemoglobin 11, platelets 118. Sodium 139, potassium 3. 9, chloride 109, bicarb 25, BUN 26, creatinine 0.85, glucose 212. Plan: We will go ahead and keep the patient in ICU. The patient was getting Zosyn when I saw him in ICU. After that dose, we will discontinue Zosyn and start him on meropenem and vancomycin. Consult Dr. Baires from Pulmonary Service and I have called and discussed details with him after seeing th e patient in ICU. I also communicated details with the patient's who was in outside ICU. We wi ll repeat chest x-ray and blood work tomorrow morning. SCD was ordered for DVT prophylaxis and we wi ll continue other current medical management. I will see him in the morning for followup. JOHN/MODL Voice ID: [id number] Report ID: [id number]
--- NOTE | 2024-07-13 16:46 | RAD REPORT ---
Modified barium swallow exam with speech pathology service HISTORY: aspiration pna Fluoroscopy Time: 4:18 IMPRESSION: Please see the speech pathology service report for details. Barium contrast of multiple consistencies was provided the patient orally by the speech pathology dep artment. Fluoroscopic observation was performed during swallowing. The radiologist was not present for the examination. Provided images demonstrate aspiration with thin liquids.
[2024-07-13] MEDS ORDERED: LEVOFLOXACIN 750MG/D5W 150 ML IV SCH (21:00)
[2024-07-13] MEDS: Levofloxacin500mg IV 500 MG/100 ML BAG IV SCH (21:06)
[2024-07-13] MEDS: Levofloxacin 250mg IV 250 MG/50 ML BAG IV SCH (21:07)
--- NOTE | 2024-07-13 21:59 | PN ---
Date of Progress Note: 07/13/2024 Subjective: The patient was seen this morning for followup. He was feeling much better overnight. He was in ICU, not in any distress, was on BiPAP when I saw him and after I saw him, his BiPAP was di scontinued and he was placed on nasal cannula oxygen maintaining adequate oxygenation. When I saw anil sweeney, his was present with him at bedside. Last night, the patient was given 1 dose of Ativan and he responded very well as he was having lot of anxiety problem soon after he moved to ICU with respir atory failure and hypoxia problem. He slept well last night. Objective: HEENT: This morning when I saw him, examination unremarkable. Lungs: Bilateral good equal air entry. Significant improvement in lung findings. Clear to ausculta tion except some rales noted in left lower 1/4 to 1/3 lung region. Otherwise, lungs were clear. Heart: Sounds normal. Abdomen: Soft. Bowel sounds normal. No guarding, rigidity, tenderness, distention. Extremities: No leg edema. Laboratory Data: WBC 9.6, hemoglobin 11.6, platelets 153. Sodium 141, potassium 4.1, chloride 108, bicarb 31, BUN 27, creatinine 0.99, glucose 177. Chest x-ray shows improvement in left-sided infiltr ate. Impression: 1. Aspiration pneumonia. 2. Acute exacerbation of COPD. 3. Dysphagia. 4. Anemia, unspecified. Plan: We will go ahead and continue current antibiotic. Continue oxygen replacement therapy for acu te respiratory failure with hypoxia problem and the patient is doing much better overnight with his m edical management. Continue steroid and we will continue to follow with Dr. Baires. The patient h ad evaluation by speech therapist and modified barium swallow was done today which unfortunately show ed aspiration with thin liquids, so Speech Therapy recommended feeding tube placement which initially the patient refused, but after nursing staff and speech therapist communicated with the patient, he was agreeable for Dobhoff tube placement, but the patient's had informed me that there was some problem in his lower esophagus that was found by his graduate fellow when they did EGD about coupl e of months ago and per my request, she did bring copy of EGD results to my office, which I have revi ewed, showed that the patient had esophageal stricture or stenosis which was dilated, but also had mo derate tortuosity of the lower esophagus. With this finding, putting Dobhoff tube will be difficult and not only that, but that is a temporary measure. We will have a discussion with the patient and t he patient's tomorrow regarding this and 1 needs to consider PEG tube placement instead of Dobho ff tube and obviously his graduate fellow is in [place], so after discussion and after explaining risk and benefit of eating by mouth at least on a temporary basis per speech therapist's diet recomme ndation, we will consider that tomorrow to start him on diet, but not without explaining risk involve d of aspiration and pneumonia. Continue DVT prophylaxis using Lovenox per order and SCD was in place when I saw him this morning. JOHN/MODL Voice ID: [id number] Report ID: [id number]
[2024-07-13] MEDS ORDERED: Levofloxacin500mg IV 500 MG/100 ML BAG IV SCH (22:00)
[2024-07-14 05:57] LABS: Absolute Lymphocytes (CBC) 0.5 K/uL (0.7-4.9); Absolute Monocytes 0.5 K/uL (0.1-1.3); Absolute Neutrophil 8.7 K/uL (1.8-8.0); Basophils % 0.1 % (0-1.3); Hematocrit 30.6 % (39.6-49.0); Hemoglobin 10.6 g/dL (13.6-17.9); Lymphocytes % 5.4 % (15.3-44.8); MCH 33.2 pg (27.0-35.0); MCHC 34.8 g/dL (32.0-36.0); MCV 95.4 fL (80-100); MPV 8.7 fL (7.6-11.3); Monocytes % 5.2 % (3.3-12.3); Neutrophils % 89.3 % (41.7-73.7); Platelets 121 thou/uL (152-406); Red Cell Distribution Width 13.8 % (12.1-15.2)
[2024-07-14 06:48] LABS: Anion Gap 4.7 mEq/L (5.0-15.0); Potassium 3.7 mEq/L (3.5-5.1)
[2024-07-14] MEDS: D5 0.9 NS 1,000 ML IV SCH (08:00)
[2024-07-14] MEDS: METHYLPREDNISOLONE 40 MG INJ IV SCH (08:22)
--- NOTE | 2024-07-14 08:45 | RAD REPORT ---
EXAMINATION: ONE VIEW CHEST XR CLINICAL INDICATION: aspiration pneumonia TECHNIQUE: Frontal chest projection is submitted. Examination is limited by patient positioning and t echnique. COMPARISON: 07/13/2024 FINDINGS: Patchy airspace opacity is again noted bilaterally without significant change since comparative study and more prominent on the left. The heart is moderately enlarged. No displaced fractures identified. Sternotomy wires. IMPRESSION: No significant change is seen in bilateral pulmonary opacities, greater on the left, presumably pneum onia.
[2024-07-14] MEDS: EPINEPHRINE 1 MG/ML VIAL ONE (10:34)
[2024-07-14] MEDS ORDERED: LIDOCAINE 1% MPF 5 ML VIAL ONE (10:55)
[2024-07-14] MEDS ORDERED: propofoL 200 MG/20 ML VIAL IV ONE (10:55)
--- NOTE | 2024-07-14 12:45 | P.PN ---
Subjective Date of Service: 07/14/24 Chief Complaint: Pneumonia Subjective: Improving Is improving doing well failed swallow test Review of Systems Unremarkable General: Weakness Respiratory: Shortness of Breath Physical Examination - Vital Signs Temperature: 98.1 F Blood Pressure: 132/63 Pulse: 83 Respirations: 18 Pulse Ox (%): 96 - Physical Exam General: Alert, Oriented x3 Respiratory: Clear to auscultation bilaterally Cardiovascular: No edema, Regular rate/rhythm Assessment And Plan - Current Problems (Diagnosis) (1) Pneumonia Current Visit: Yes Status: Acute Plan: Patient admitted with pneumonia doing much better swallow test scheduled for GI evaluation possible peg tube chemistries reviewed white count is now normal patient is does not have any risk factors for resistant infection vancomycin meropenem can be discontinued continue with IV. Consider discontinuing steroid Qualifiers: Pneumonia type: due to unspecified organism
[2024-07-14] MEDS: Ringers Lactate 1,000 ML IV ONE (13:54)
[2024-07-14] MEDS ORDERED: JEVITY 1.2 CAL LIQUID 1,000 ML BOT RTH SCH (18:00)
--- NOTE | 2024-07-14 18:19 | CON ---
Date of Consultation: 07/14/2024 Reason For Consultation: Aspiration pneumonia, failed modified barium swallow with continued aspirat ion, need for an alternative enteral feeding. History Of Present Illness: This is a 78-year-old white male with history of throat cancer status po st radiation therapy, chemotherapy, cardiac disease, status post cardiac stent and 2 vessel CABG in 2 017. The patient came to the hospital due to fever, cough, congestion, shortness of breath. no tiffanie increasing cough every time patient ate or drank something. The patient noted to have aspiration pneumonia. The patient had a subsequent speech pathology evaluation, which reveals aspiration of th in liquids and modified barium swallow. Past Medical History: Significant for throat cancer status post radiation therapy, chemotherapy, cor onary artery disease, status post cardiac stent and a 2 vessel CABG in 2017. Also has a history of h ypothyroidism, hypertension, hyperlipidemia, and benign prostatic hypertrophy and thrombocytopenia, c arotid artery stenosis. Home Medications: Include aspirin, atorvastatin, amlodipine, vitamin D3, levothyroxine, and Protonix . Allergies: NKDA. Social History: He is , 2 children. No tobacco. No alcohol. Family History: Father at 91 of old age and also had prostate cancer. Mother of Alzheimer disease. Past Surgical History: Significant for tonsillectomy. This likely was not just throat cancer, was t hroat/tongue cancer. Review of Systems: The patient has aspiration of both coughing with any p.o. intake with solids or liquids. Aspiration pneumonia on this admission, fevers, chills, history of cough, congestion. Denies any hematemesis, c offee-grounds emesis, melena, hematochezia, hematuria, dysuria, polydipsia, chest pain. He is a vesta le short of breath. No muscle aches, joint aches, backaches. No decreased mood, but no anxiety. Physical Examination: Vital Signs: The patient is 5 feet 708 pounds, BMI 16.9 kg/sq m. Temperature 98.1 degrees Fahrenhei t, pulse 83, respirations 18, blood pressure 132/63, O2 saturation 96% on room air. HEENT: Normocephalic, atraumatic. Anicteric. Pupils equal, round, and reactive to light. Extraocu lar movements intact. Oropharynx is clear. Neck: Supple, somewhat stiff from radiation therapy, but minimal. Respirations: Clear to auscultation bilaterally. Cardiac: Regular rate and rhythm. Gastrointestinal: Positive bowel sounds. Soft, nontender, nondistended. No hepatosplenomegaly. Extremities: No clubbing, cyanosis, or edema. 2+ pulses. Neuro: Alert and oriented x3. Grossly nonfocal. 5/5 motor, sensation to light touch. Laboratory Values: White count 9, down from admission of 12.4, hemoglobin of 10.6 down from 13.3 on admission. MCV of 95, platelet count 121, low. Polys of 89% down from 92%, lymphocytes 5%, monocyte s 5%. PT of 11.3, INR of 1.08, PTT of 31.1. 7.44, pCO2 of 38, PO2 of 66, pCO2 of 26, O2 saturation 93% on FiO2 of 28%. The patient has sodium 143, potassium 3.7, chloride 111, bicarb 31, B UN of 26, creatinine of 0.8, glucose 187, calcium 8.3. On the 2nd, the patient's AST of 24, ALT of 2 3, alkaline phosphatase 79. Troponin I of 7.4. B-type natriuretic peptide of 356. Total protein 7. 1, albumin 3.2. UA was negative. COVID testing was negative. Modified barium swallow showed aspira tion with thin liquids. CT abdomen and pelvis and chest revealed no definite pneumonia. Small fluid distention. Hiatal hernia present. Mediastinal hilar lymphadenopathy noted. Impression: 1. Aspiration pneumonia. The patient had a cough and has had pneumonia on this admission, treated ef fectively for white count elevated to 12 and left shift 89% polys. With IV antibiotics. A failed modified barium swallow with aspiration of thin liquids noted. Will need alternative entera l nutrition. 2. History of throat/tongue cancer status post radiation chemotherapy, coronary artery disease, hyper tension, benign prostatic hypertrophy, hyperlipidemia, hypothyroidism, coronary artery disease, statu s post cardiac stent, two-vessel coronary artery bypass graft in 2017, and other as per above. Recommendation: 1. Proceed with the EGD with PEG tube placement. 2. Keep patient n.p.o. 3. Continue IV fluids and IV antibiotics. WS/MODL Voice ID: [id number] Report ID: [id number]
--- NOTE | 2024-07-14 20:39 | PN ---
Date of Progress Note: 07/14/2024 Subjective: The patient was seen this morning. He was on medical floor, was transferred out of ICU to regular room last night, and was with him at bedside. He was on oxygen around 4 L/minute izaiah al cannula. This morning when I saw him, lying in bed, not in distress. No new complaints or proble ms reported by him. Objective: Vital Signs: Reviewed. HEENT: Unremarkable. Lungs: Clear to auscultation except very minimal basal rales noted. Not using any accessory muscles of respiration. Heart: Sounds normal. Abdomen: Soft. Bowel sounds normal. No guarding, rigidity, tenderness, distention. Extremities: No leg edema. Laboratory Data: WBC 9.8, hemoglobin 10.6, platelets 121. Sodium 143, potassium 3.7, chloride 111, bicarb 31, BUN 26, creatinine 0.8, glucose 187. Chest x-ray remains unchanged from yesterday. Impression: 1. Aspiration pneumonia. 2. Acute exacerbation of COPD. 3. Anemia. 4. Hypertension. 5. Hyperlipidemia. Plan: We will go ahead and continue current medication. Continue steroid Solu-Medrol, but reduce th e dose from 40 mg every 8 hours to every 12 hours. Continue IV fluid D5 normal saline at 50 cc/hour. I had a long discussion with the patient in presence of his who was at bedside regarding feedi ng tube placement considering he failed swallowing test yesterday and speech therapist has recommende d feeding tube and almost spend about 30 to 35 minutes talking to the patient and the patient's regarding risk involved if he does not have a feeding tube and discussed to continue to eat with diet modification as suggested by speech therapist, then there is definitely risk involved with aspiratio n pneumonia and in some cases it can result in . So, the best thing to do at this point for him would be to follow speech therapist recommendation and have a feeding tube in place and not to eat o r drink anything by mouth and have all the medications and nutrition received through the feeding tub e. After a long discussion, the patient was agreeable to do so and on an outpatient basis, we can nava ve him work with speech therapist to see if his swallowing gets better or not over a period of time a nd if it does, then he can start eating actually and feeding tube can be removed in the future if his swallowing function improves, so all those details were discussed with him and since he was agreeabl e and Dr. White from [facility] was instructional technology coach today, so we did consult him and in fact I reached out t o Dr. White, explained him all the details including his last EGD findings from last month was also discussed with him and Dr. White saw him and he was able to successfully put back tube on him today and as of this evening, we will start him on PEG tube feeding. Once the PEG tube feeding gets starte d, we will discontinue IV fluid and I will see him tomorrow for followup. For his aspiration pneumon ia, we will continue all his current antibiotics and all his oral medications will be given through P EG tube and I have informed nursing staff to do so. Possible discharge to go home sometime later par t of this week or over the weekend depending on his condition. JOHN/MODL Voice ID: [id number] Report ID: [id number]
[2024-07-14] MEDS: ALBUTEROL 2.5 MG/3 ML NEB SOL ONE (20:49)
[2024-07-15 06:12] LABS: Absolute Lymphocytes (CBC) 0.7 K/uL (0.7-4.9); Absolute Monocytes 0.5 K/uL (0.1-1.3); Absolute Neutrophil 8.9 K/uL (1.8-8.0); Basophils % 0.1 % (0-1.3); Hematocrit 32.1 % (39.6-49.0); Lymphocytes % 6.7 % (15.3-44.8); MCH 33.1 pg (27.0-35.0); MCHC 34.2 g/dL (32.0-36.0); MPV 8.7 fL (7.6-11.3); Monocytes % 4.9 % (3.3-12.3); Neutrophils % 88.3 % (41.7-73.7); Nucleated Red Blood Cells % 0.1 % (0-0); Platelets 141 thou/uL (152-406); RBC Red Blood Cell Count 3.31 M/uL (4.33-5.43); Red Cell Distribution Width 13.9 % (12.1-15.2)
[2024-07-15 06:26] LABS: Anion Gap 5.1 mEq/L (5.0-15.0); Potassium 4.1 mEq/L (3.5-5.1)
[2024-07-15] MEDS: VANCOMYCIN 1 GM in NA CHLORIDE 0.9% 250 ML IVPB SCH (10:07)
[2024-07-15] MEDS: predniSONE 20 MG TAB PO SCH (10:08)
--- NOTE | 2024-07-15 15:08 | P.PN ---
Subjective Date of Service: 07/15/24 Chief Complaint: Aspiration pneumonia, s/p PEG tube yesterday Subjective: Improving (Ambulating 5 times around hallway on 2nd floor. Tolerating TFs well.) Review of Systems 10-point ROS is otherwise unremarkable General: Weakness (Improved.) Gastrointestinal: Other (dysphagia) Physical Examination - Vital Signs Temperature: 98.4 F Blood Pressure: 124/68 Pulse: 84 Respirations: 20 Pulse Ox (%): 92 - Physical Exam General: Alert, In no apparent distress, Oriented x3, Cooperative HEENT: Atraumatic, Normocephalic, PERRLA, EOMI Neck: Supple Respiratory: Normal air movement Cardiovascular: Normal pulses Gastrointestinal: Soft and benign, No tenderness, No rebound, No guarding, Other (PEG tube site clean and dry) Neurological: Normal speech, Normal strength at 5/5 x4 extr Assessment And Plan - Current Problems (Diagnosis) (1) Dysphagia Current Visit: Yes Status: Acute (2) Aspiration pneumonia Current Visit: Yes Status: Acute (3) Abnormal esophagram Current Visit: Yes Status: Acute - Plan REC: 1) continue TFs 2) GI clinic f/u
[2024-07-15] MEDS: ALBUTEROL 2.5 MG/3 ML NEB SOL ONE (21:15)
[2024-07-16] MEDS: ALBUTEROL 2.5 MG/3 ML NEB SOL ONE (06:09)
--- NOTE | 2024-07-16 08:41 | PN ---
Date of Progress Note: 07/15/2024 Subjective: The patient was seen this morning for followup. He was lying in bed, not in distress. Denies any new complaints. Had a feeding tube placed yesterday by Dr. White and last night his feed ing was started through PEG tube. When I saw him this morning, he was at 40 cc/hour and tolerating f eeding very well. was at bedside. He was on nasal cannula oxygen 1 L/minute, maintaining adequ ate oxygenation. Physical Examination: HEENT: Unremarkable. Lungs: Clear to auscultation except very minimal basal rales, not in respiratory distress. Heart: Sounds normal. Abdomen: Feeding tube is in place in upper anterior abdominal wall and outer bumper of the feeding t ube was noted to be putting a little bit extra pressure on the insertion site and I did pull out the outer bumper just by 2 to 3 mm just to alleviate some of the pressure. There was no bleeding or disc harge. Soft. Bowel sounds normal. No guarding, rigidity, tenderness. Extremities: No leg edema. Laboratory Data: WBC 10.10, hemoglobin 11, platelets 141. Sodium 145, potassium 4.1, chloride 112, bicarb 32, BUN 31, creatinine 0.70, glucose 185. Impression: 1. Aspiration pneumonia. 2. Acute respiratory failure with hypoxia. 3. Hypertension. 4. Coronary artery disease. 5. Acute exacerbation of COPD. 6. Anemia. Plan: We will go ahead and continue current antibiotic. The patient is on IV steroid. We will zamorano shahla back to oral prednisone. All his oral medications will be given through PEG tube and we will zamorano shahla his PEG tube from continuous feeding to bolus feeding. Request Social Service to make arrangement s for necessary supply and nursing staff to train the patient and for the feeding. We will also provide water boluses through the feeding tube and all these details were discussed with the patient and the patient's . Oxygen was at 1 L/minute which was discontinued and we will monitor his oxy genation. Hopefully, he will not require anymore supplemental oxygen. Possible discharge to go home tomorrow depending on the patient's condition. JOHN/MODL Voice ID: [id number] Report ID: [id number]
[2024-07-16 08:42] LABS: Absolute Lymphocytes (CBC) 0.9 K/uL (0.7-4.9); Absolute Monocytes 0.9 K/uL (0.1-1.3); Absolute Neutrophil 8.1 K/uL (1.8-8.0); Basophils % 0.2 % (0-1.3); Eosinophils % 0.1 % (0-4.4); Hematocrit 33.8 % (39.6-49.0); Hemoglobin 11.6 g/dL (13.6-17.9); Lymphocytes % 9.1 % (15.3-44.8); MCHC 34.3 g/dL (32.0-36.0); MCV 96.1 fL (80-100); MPV 8.9 fL (7.6-11.3); Monocytes % 8.9 % (3.3-12.3); Neutrophils % 81.7 % (41.7-73.7); Nucleated Red Blood Cells % 0.1 % (0-0); Platelets 138 thou/uL (152-406); RBC Red Blood Cell Count 3.52 M/uL (4.33-5.43); Red Cell Distribution Width 13.9 % (12.1-15.2)
[2024-07-16 08:49] LABS: Anion Gap 3.3 mEq/L (5.0-15.0); Potassium 4.3 mEq/L (3.5-5.1)
--- NOTE | 2024-07-16 11:28 | RAD REPORT ---
EXAM: Chest Pa And Lat (2 Views) HISTORY: 78 years Male aspiration pneumonia COMPARISON: None. FINDINGS: LUNGS/PLEURA: Aeration of the left lung has modestly improved. There are still some residual opacitie s both in the left lung and right lung base. MEDIASTINUM: The mediastinal silhouette is within normal limits CARDIAC: Mild cardiomegaly UPPER ABDOMEN: Contrast visualized in the colon. BONES: Sternotomy. No acute abnormality. LINES/TUBES/OTHER: N/A IMPRESSION: Some improvement in aeration of lungs compared with 07/14/2024 though residual opacities remain.
--- NOTE | 2024-07-16 13:22 | PN ---
Date of Progress Note: 07/16/2024 Subjective: The patient was seen this morning for followup. The patient was lying in bed, reported that yesterday he ambulated about 10 times in the hallway and did not have any trouble with ambulatio n. Overall, he had uneventful day yesterday. He is coughing up lot of thick yellowish colored mucus . Objective: Vital Signs: Reviewed. HEENT: Unremarkable. Lungs: Bilateral equal air entry with presence of scattered wheezing in all the lung irvin little m ore on the right side than the left side with some crackles in both lower lung irvin and today's vanessa g finding is worse compared to yesterday. The patient not using any accessory muscles of respiration . Heart: Sounds normal. Abdomen: Soft. Bowel sounds normal. No guarding, rigidity, tenderness, distention. PEG tube inser tion site appears normal. Extremities: No leg edema. Laboratory Data: WBC 9.9, hemoglobin 11.6, platelets 138. Sodium 141, potassium 4.3, chloride 110, bicarb 32, BUN 30, creatinine 0.68, glucose 140. Impression: 1. Aspiration pneumonia. 2. Acute respiratory failure with hypoxia, improved. 3. Acute exacerbation of chronic obstructive pulmonary disease. 4. Hypertension. 5. Hyperlipidemia. 6. Coronary artery disease. Plan: We will go ahead and continue current antibiotic. The patient is on Levaquin, meropenem, and vancomycin. We will discontinue oral prednisone which was started yesterday instead of that we will put him back on IV steroids for COPD exacerbation, which is Solu-Medrol 40 mg every 8 hours. Continu e nebulizer treatment and Dulera inhaler per order. We will repeat chest x-ray PA and lateral today and sputum was ordered to be sent for Gram stain and culture. Continue current tube feeding and with the patient today's lung finding, we will not be discharging him to go home today and I have discuss ed that with the patient. Possible discharge over the weekend depending on his condition. Continue Lovenox for DVT prophylaxis and I will see him tomorrow for followup. Ambulation was encouraged. JOHN/MODL Voice ID: [id number] Report ID: [id number]
[2024-07-16] MEDS: METHYLPREDNISOLONE 40 MG INJ IV SCH (13:48)
--- NOTE | 2024-07-16 15:23 | P.PN ---
Subjective Date of Service: 07/17/24 Chief Complaint: Aspiration pneumonia, s/p PEG tube 07-14-24 Subjective: Improving (No complaints. Tolerating TFs via new PEG tube well.) Review of Systems 10-point ROS is otherwise unremarkable Gastrointestinal: Other (dysphagia) Physical Examination - Vital Signs Temperature: 97.7 F Blood Pressure: 156/78 Pulse: 76 Respirations: 16 Pulse Ox (%): 94 - Physical Exam General: Alert, In no apparent distress, Oriented x3, Cooperative HEENT: Atraumatic, Normocephalic, PERRLA, EOMI Neck: Supple Cardiovascular: Normal pulses Integumentary: No breakdown Neurological: Normal speech, Normal strength at 5/5 x4 extr - Studies Microbiology Data (last 24 hrs): 07/11/24 02:30 Blood - Blood Aerobic Blood Culture - Final No growth in 5 days. 07/11/24 02:30 Blood - Blood Anaerobic Blood Culture - Final No growth in 5 days. 07/11/24 02:00 Blood - Blood Aerobic Blood Culture - Final No growth in 5 days. 07/11/24 02:00 Blood - Blood Anaerobic Blood Culture - Final No growth in 5 days. Assessment And Plan - Current Problems (Diagnosis) (1) Dysphagia Current Visit: Yes Status: Acute (2) Aspiration pneumonia Current Visit: Yes Status: Acute (3) Abnormal esophagram Current Visit: Yes Status: Acute - Plan REC: 1) continue TFs 2) GI clinic f/u
[2024-07-16] MEDS ORDERED: LACTULOSE 20 GM/30 ML UCUP PO PRN (22:10)
[2024-07-16] MEDS ORDERED: DOCUSATE NA/SENNA CONC 1 TAB PO PRN (22:10)
[2024-07-17] MEDS: VANCOMYCIN 1.25 GM in NA CHLORIDE 0.9% 250 ML IVPB SCH (10:18)
--- NOTE | 2024-07-17 15:02 | PN ---
Date of Progress Note: 07/17/2024 Subjective: The patient was seen this morning for followup. His was with him at bedside. No n ew complaints, problems reported by the patient. Overall, he feels better today compared to yesterda y. He is tolerating tube feeding very well. Objective: Vital Signs: Reviewed. HEENT: Unremarkable. Lungs: Bilateral good equal air entry. Presence of scattered wheezing and rales in both lung irvin noted. The distribution remains unchanged, but intensity is less today compared to yesterday. The patient not using any accessory muscles of respiration. Heart: Sounds normal. Abdomen: Soft. Bowel sounds normal. No guarding, rigidity, tenderness, distention. Extremities: No leg edema. Labs: There were no new labs today. Chest x-ray from yesterday had shown significant improvement in bilateral lung opacities. Impression: 1. Aspiration pneumonia. 2. Acute respiratory failure with hypoxia. 3. Dysphagia. 4. Acute exacerbation of COPD. Plan: We will go ahead and continue PEG tube feeding per order. The patient is tolerating that well . We will continue current nebulizer treatment, inhaled IV steroid and IV antibiotics. Sputum cultu re that was sent yesterday result pending. We will see him tomorrow for followup. Possible discharge to go home day after tomorrow, which is on Friday. JOHN/MODL Voice ID: [id number] Report ID: [id number]
[2024-07-17] MEDS: ACETYLCYST 20% 4 ML VIAL IH SCH (19:00)
[2024-07-18 05:19] LABS: Absolute Lymphocytes (CBC) 0.7 K/uL (0.7-4.9); Absolute Monocytes 0.5 K/uL (0.1-1.3); Absolute Neutrophil 13.1 K/uL (1.8-8.0); Basophils % 0.1 % (0-1.3); Hematocrit 36.7 % (39.6-49.0); Hemoglobin 12.5 g/dL (13.6-17.9); Lymphocytes % 4.5 % (15.3-44.8); MCH 32.1 pg (27.0-35.0); MCV 94.4 fL (80-100); Monocytes % 3.7 % (3.3-12.3); Neutrophils % 91.7 % (41.7-73.7); Platelets 165 thou/uL (152-406); RBC Red Blood Cell Count 3.89 M/uL (4.33-5.43); Red Cell Distribution Width 13.4 % (12.1-15.2)
[2024-07-18 05:33] LABS: Anion Gap 10.1 mEq/L (5.0-15.0); Magnesium 2.4 mg/dL (1.6-2.4); Potassium 4.1 mEq/L (3.5-5.1)
[2024-07-18 08:42] LABS: Differential Total Cells Count 100
[2024-07-18 08:43] LABS: Band Neutrophils 1 % (0-1); Blood Morphology Comment NOT SEEN (NOT SEEN); Lymphocytes 6 % (15-42); Monocytes 4 % (0-10); Platelet Estimate ADEQ; Segmented Neutrophils 89 % (40-80)
[2024-07-18] MEDS: MAGNESIUM HYDROXIDE 8% 30 ML FT ONE (10:17)
[2024-07-18] MEDS: FUROSEMIDE 20 MG/ 2ML VIAL IV ONE (10:17)
--- NOTE | 2024-07-18 11:32 | PN ---
Date of Progress Note: 07/18/2024 Subjective: The patient was seen this morning for followup. No new complaints or problems reported. He was noted to be ambulating very well in the hallway with his . He has not used any oxygen, maintaining adequate level of oxygenation on room air. Overall, he feels a lot better today compared to yesterday. He has not had a bowel movement in last 4-5 days and his normal bowel habit at home i s every 4 to 5 days anyway. Denies any discomfort in his abdomen or any uncomfortable feeling in his lower abdomen or rectum area. He is tolerating feeding okay. Objective: Vital Signs: Reviewed. HEENT: Unremarkable. Lungs: Bilateral good equal air entry. Significantly better lung findings today compared to last 2 days and today I only hear crackles in bilateral lower 1/4 lung region, otherwise no wheezing noted t alberto. Heart: Sounds normal. Abdomen: Soft. Bowel sounds normal. No guarding, rigidity, tenderness, distention. Extremities: No leg edema. Laboratory Data: WBC 14.3, hemoglobin 12.5, platelets 165. Sodium 137, potassium 4.1, chloride 103, bicarb 28, BUN 22, creatinine 0.69, glucose 148, magnesium 2.4. Impression: 1. Aspiration pneumonia. 2. Anemia, unspecified. 3. Hypertension. 4. Dysphagia. 5. Coronary artery disease. 6. Hyperlipidemia. 7. Acute respiratory failure with hypoxia. Plan: We will go ahead and continue current antibiotic. Sputum culture has not grown any bacteria, but it did show some yeast. This is likely due to contamination from his upper air passages. We rosas l consider adding fluconazole 100 mg daily for few days. The patient may have some underlying diasto lic heart failure on basis of clinical exam and I will go ahead and order a proBNP and give 1 dose of Lasix 10 mg IV today. Continue current antibiotic. Continue current steroid. His elevated WBC cou nt is due to steroid use. The patient's condition overall has improved significantly between yesterd ay and today and Mucomyst, which was added yesterday, we will continue that. I will see him tomorrow for followup. Possible discharge to go home tomorrow depending on his condition and if his feeding supply becomes available tomorrow. He sees his civil engineer helper Dr. Napoles in [place] regularly and he h as appointment coming up in September and says that he is scheduled to get echocardiogram with his cardio logist at that time. He will get me a copy of that result. I will see him tomorrow for followup. JOHN/MEEK Voice ID: [id number] Report ID: [id number]
[2024-07-18] MEDS: FLUCONAZOLE 100 MG TAB PO ONE (13:52)
[2024-07-19] MEDS: JEVITY 1.5 CAL LIQUID 1,000 ML BOT FT SCH (06:05)
[2024-07-19] MEDS: FLUCONAZOLE 100 MG TAB PO SCH (09:29)
[2024-07-19] MEDS: FUROSEMIDE 20 MG/ 2ML VIAL IV SCH (09:29)
[2024-07-19] MEDS: CLOTRIMAZOLE 10 MG TROCHE PO SCH (09:29)
[2024-07-19] MEDS: VANCOMYCIN 1.25 GM in NA CHLORIDE 0.9% 250 ML IVPB SCH (11:30)
--- NOTE | 2024-07-19 12:33 | P.PN ---
Subjective Date of Service: 07/19/24 Chief Complaint: Aspiration pneumonia Was doing better and today he is wheezing more has more rhonchi more prominent on the right side with crackles no history of fever white count is mildly elevated patient was started back on IV steroid Review of Systems General: Weakness Respiratory: Cough, Shortness of Breath Physical Examination - Vital Signs Temperature: 98.0 F Blood Pressure: 125/65 Pulse: 77 Respirations: 16 Pulse Ox (%): 93 - Physical Exam General: Alert, Oriented x3 Respiratory: Crackles/rales (Basilar crackles), Rhonchi/gurgles (On the right side) Cardiovascular: No edema, Regular rate/rhythm, Normal S1 S2 Assessment And Plan - Current Problems (Diagnosis) (1) Pneumonia Current Visit: Yes Status: Acute Plan: Patient is 78 years of age admitted with bibasilar pneumonia has some diffuse bilateral interstitial changes most likely from chronic aspiration procalcitonin level right now is negative and has increased I recommend stopping steroids vancomycin meropenem also has thrush to follow him as an outpatient and may qualify for home O2 temporarily fungal pneumonia is exceptionally rare before cultures are negative apart from yeast in the sputum we treated with Diflucan to with inhaled bronchodilator and avoid inhaled steroids for now I will also ordered flutter valve 4 times a day Qualifiers: Pneumonia type: due to unspecified organism
--- NOTE | 2024-07-19 12:42 | RAD REPORT ---
EXAMINATION: ONE VIEW CHEST XR CLINICAL INDICATION: pneumonia TECHNIQUE: Frontal chest projection is submitted. Examination is limited by patient positioning and t echnique. COMPARISON: 07/16/2024 FINDINGS: There is bilateral pulmonary opacities noted, greater on the left, likely representing pneumonia. The heart is mildly prominent. Sternotomy wires.
--- NOTE | 2024-07-19 14:04 | ECHO ---
HEIGHT: 5 ft 7 in WEIGHT: 132 lb 0 oz DATE OF STUDY: 07/19/[address]: Rj Small MD 2-DIMENSIONAL: YES M.MODE: YES DOPPLER: YES COLOR FLOW: YES TDS: PORTABLE: YES DEFINITY: BUBBLE STUDY: DIAGNOSIS: CONGESTIVE HEART FAILURE CARDIAC HISTORY: CATHERIZATION: YES SURGERY: NO PROSTHETIC VALVE: NO PACEMAKER: YES MEASUREMENTS (cm) DIASTOLIC (NORMALS) SYSTOLIC (NORMALS) IVSd 1.1 (0.6-1.2) LA Diam 2.4 (1.9-4.0) LVEF 60-65% LVIDd 4.2 (3.5-5.7) LVIDs 2.7 (2.0-3.5) %FS 35% LVPWd 1.1 (0.6-1.2) Ao Diam 3.4 (2.0-3.7) 2 DIMENSIONAL ASSESSMENT: RIGHT ATRIUM: NORMAL LEFT ATRIUM: NORMAL RIGHT VENTRICLE: NORMAL LEFT VENTRICLE: NORMAL TRICUSPID VALVE: TRACE TRICUSPID REGURGITATION MITRAL VALVE: NORMAL PULMONIC VALVE: NORMAL AORTIC VALVE: NORMAL PERICARDIAL EFFUSION: NONE AORTIC ROOT: NORMAL LEFT VENTRICULAR WALL MOTION: NORMAL DOPPLER/COLOR FLOW: GRADE I DIASTOLIC DYSFUNCTION COMMENTS: 1. NORMAL LEFT VENTRICULAR SYSTOLIC FUNCTION, EJECTION FRACTION 60-65%, NORMAL WALL MOTION 2. GRADE I DIASTOLIC DYSFUNCTION TECHNOLOGIST: FAREED AVERY
[2024-07-19] MEDS: MAGNESIUM HYDROXIDE 8% 30 ML PO ONE (17:49)
[2024-07-19] MEDS: predniSONE 10 MG TAB PO SCH (21:01)
[2024-07-19] MEDS: ALBUTEROL 2.5 MG/3 ML NEB SOL ONE (22:11)
[2024-07-19] MEDS: IPRATROPIUM BROM 0.5MG/2.5ML ONE (22:11)
--- NOTE | 2024-07-19 23:13 | PN ---
Date of Progress Note: 07/19/2024 Subjective: The patient was seen this morning for followup. He was feeling weaker this morning comp ared to yesterday. His oxygen saturation had dropped down during nighttime to like 90% on room air a nd he was placed on oxygen per nasal cannula. He was in bed sitting upright, not in any distress. W get was with him at bedside. Objective: Vital Signs: Reviewed. HEENT: Unremarkable except mouth examination shows presence of oral thrush. Lungs: Bilateral equal air entry with presence of rales noted in lower half of both lung irvin and this is worse today than yesterday. Heart: Sounds normal. Abdomen: Soft. Bowel sounds normal. No guarding, rigidity, tenderness, distention. Extremities: No leg edema. Impression: 1. Aspiration pneumonia. 2. Acute respiratory failure. 3. Hypoxia. 4. Chronic diastolic heart failure, with acute exacerbation. 5. Hypertension. 6. Acute exacerbation of COPD. 7. Thrush. Plan: The patient has extensive thrush in his mouth and this is probably the likely reason why his s putum has shown presence of yeast. Yesterday, he was started on fluconazole. Today, I have added cl otrimazole 10 mg 4 times a day. We will continue oxygen replacement therapy. The patient has been o n strong antibiotic for last several days, which includes vancomycin, Levaquin, and meropenem and we are at a point that we need to start worrying about reducing antibiotics and concern about possible s joni effects and I have discussed all those details with him and his . My concerns are that the p atient does good for a day or 2 days and then he does not feel well with worsening of lung findings a nd this has been going on over a period of last 1 week. We have to keep in mind about possibility of microaspiration along with congestive heart failure. Yesterday, I gave him 10 mg of Lasix IV. Toda y, we will give 20 mg IV Lasix and get an echo with Doppler today. I did communicate with Dr. Ruba muller after I saw him and he evaluated the patient and I communicated with him second time after he eval uated the patient and he is recommending also to start removing antibiotics considering he has taken this strong antibiotics for several days now and procalcitonin level was normal today as he has done it, so he will work on reducing antibiotics and also reducing steroids. Dr. Baires will also gomez e breathing treatment and milk of magnesia was ordered during the course of day today because of his constipation problem. We will continue current feeding per feeding tube. JOHN/MODL Voice ID: [id number] Report ID: [id number]
[2024-07-20] MEDS: ALBUTEROL 2.5 MG/3 ML NEB SOL ONE (02:02)
[2024-07-20] MEDS: IPRATROPIUM BROM 0.5MG/2.5ML ONE (02:02)
[2024-07-20 04:41] LABS: Anion Gap 5.6 mEq/L (5.0-15.0); Magnesium 3.1 mg/dL (1.6-2.4); Potassium 4.6 mEq/L (3.5-5.1)
[2024-07-20 04:45] LABS: Absolute Lymphocytes (CBC) 0.7 K/uL (0.7-4.9); Absolute Neutrophil 18.7 K/uL (1.8-8.0); Hematocrit 37.6 % (39.6-49.0); Hemoglobin 12.7 g/dL (13.6-17.9); Lymphocytes % 3.3 % (15.3-44.8); MCHC 33.9 g/dL (32.0-36.0); MCV 94.6 fL (80-100); Monocytes % 4.7 % (3.3-12.3); Platelets 189 thou/uL (152-406); RBC Red Blood Cell Count 3.97 M/uL (4.33-5.43); Red Cell Distribution Width 13.7 % (12.1-15.2)
--- NOTE | 2024-07-20 07:17 | RAD REPORT ---
Procedure: Chest Single View HISTORY: Cough COMPARISON: July 19, 2024 FINDINGS: No significant change in the diffuse bilateral No significant pleural effusion noted. The heart is enlarged. Post surgical changes involve the chest. IMPRESSION: No significant change in bilateral pulmonary opacities.
[2024-07-20 08:35] LABS: Band Neutrophils 2 % (0-1); Blood Morphology Comment NOT SEEN (NOT SEEN); Differential Total Cells Count 100; Lymphocytes 3 % (15-42); Monocytes 6 % (0-10); Platelet Estimate ADEQ; Segmented Neutrophils 89 % (40-80)
[2024-07-20] MEDS: IPRATROPIUM BROM 0.5MG/2.5ML NEB SCH (08:40)
[2024-07-20] MEDS: ASPIRIN 81 MG CHEWABLE TABLET FT SCH (10:08)
[2024-07-20] MEDS: PANTOPRAZOLE 40 MG INJ IVP SCH (10:10)
[2024-07-20] MEDS: FUROSEMIDE 20 MG/ 2ML VIAL IV ONE (10:11)
[2024-07-20] MEDS: POLYETHYL GLY 3350 17 GM/DOSE FT SCH (10:12)
--- NOTE | 2024-07-20 19:24 | PN ---
Date of Progress Note: 07/20/2024 Subjective: The patient was seen this morning for followup. He was sitting upright in bed. His wif deborah was with him at bedside. Yesterday, he ambulated several times outside his home in the hallway. Art cabrera is on oxygen about 2 L/minute per nasal cannula. He is tolerating PEG tube feeding very well and y day he was given 1 dose of milk of magnesia that has not helped him with his constipation proble m yet. Denies any abdominal pain, nausea, vomiting. Objective: Vital Signs: Reviewed. He remains afebrile, hemodynamically stable. HEENT: Unremarkable. Lungs: Bilateral good equal air entry with presence of rales noted in lower half of both lung irvin , unchanged from yesterday. Not using any accessory muscles of respiration. Heart: Sounds normal. Abdomen: Soft. Bowel sounds normal. No guarding, rigidity, tenderness, distention. Extremities: No leg edema. Laboratory Data: WBC today 20.3, hemoglobin 12.7, platelets 189. Sodium 134, potassium 4.6, chlorid e 101, bicarb 32, BUN 26, creatinine 0.70, glucose 146. Impression: 1. Aspiration pneumonia. 2. Chronic diastolic heart failure, with acute exacerbation. 3. Anemia, unspecified. 4. Hypertension. 5. Hyperlipidemia. Plan: We will go ahead and continue current IV Lasix per order. The patient has oral candidiasis an d we will continue clotrimazole and fluconazole. The patient is now on prednisone 10 mg twice a day. We will continue that. Continue nebulizer treatment and all his other antibiotics were discontinue d yesterday, which is vancomycin, meropenem, and Levaquin as the patient has received adequate number of days of IV antibiotics. His lung findings could be due to now scar tissue in the lung. We need to think about that as a possibility. I did communicate with the patient and the patient's maxwell medellining that along with possibility of microaspiration. We will continue oxygen replacement therapy. I encouraged the patient to ambulate and depending on his condition, we will decide if possibly he ca n be discharged to go home by , which is day after tomorrow or not. I will see him tomorrow for followup. JOHN/MODL Voice ID: [id number] Report ID: [id number]
[2024-07-21 04:38] LABS: Absolute Lymphocytes (CBC) 0.6 K/uL (0.7-4.9); Absolute Monocytes 0.9 K/uL (0.1-1.3); Absolute Neutrophil 23.3 K/uL (1.8-8.0); Hematocrit 39.5 % (39.6-49.0); Hemoglobin 13.3 g/dL (13.6-17.9); Lymphocytes % 2.6 % (15.3-44.8); MCH 32.1 pg (27.0-35.0); MCHC 33.7 g/dL (32.0-36.0); MCV 95.2 fL (80-100); MPV 8.5 fL (7.6-11.3); Monocytes % 3.6 % (3.3-12.3); Neutrophils % 93.8 % (41.7-73.7); Platelets 195 thou/uL (152-406); RBC Red Blood Cell Count 4.15 M/uL (4.33-5.43); Red Cell Distribution Width 14.1 % (12.1-15.2)
[2024-07-21 04:53] LABS: Anion Gap 8.5 mEq/L (5.0-15.0); Magnesium 2.7 mg/dL (1.6-2.4); Potassium 4.5 mEq/L (3.5-5.1)
[2024-07-21 05:19] LABS: Band Neutrophils 10 % (0-1); Differential Total Cells Count 100; Lymphocytes 2 % (15-42); Monocytes 2 % (0-10); Segmented Neutrophils 86 % (40-80)
[2024-07-21 05:20] LABS: Blood Morphology Comment NOTED (NOT SEEN); Platelet Estimate ADEQ
[2024-07-21 05:35] VITALS: BMI 20.5
--- NOTE | 2024-07-21 07:48 | RAD REPORT ---
Exam:Abdomen 1 View (KUB) Clinical history: Abdominal pain. Constipation FINDINGS: The bowel gas pattern is unremarkable. Contrast is present throughout the colon. No significant calcification is displayed.
[2024-07-21] MEDS: BISACODYL 10 MG RECTAL SUPP PR ONE (09:12)
--- NOTE | 2024-07-21 09:23 | RAD REPORT ---
EXAM: Chest Abdomen Pelvis W Cont CLINICAL INDICATION: Chest and abdominal pain TECHNIQUE: CT chest, abdomen and pelvis was performed, with 100 cc Isovue-300 IV contrast, as per de partment protocol. Axial, sagittal and coronal reconstructions were obtained. One or more of the following dose reduction techniques were used: Automated exposure control, adjustment of the mA and/o r kV according to the patient size, and/or iterative reconstruction. Unless otherwise specified, incidental findings do not require dedicated imaging follow-up. [id number]. Oral contrast not given. This limits evaluation of the bowel. COMPARISON: July 11, 2024 FINDINGS: Moderate bilateral lower lobe opacities. Some are tree-in-bud. These have markedly progressed since p rior exam. Development of mild groundglass opacities within upper lobes. Most of the additional interstitial lung opacities are chronic. Moderate mediastinal lymphadenopathy. A subcarinal middle mediastinal lymph node measures 2.3 cm. Mil d hilar lymphadenopathy. Small hiatal hernia. Fluid within the esophagus may indicate reflux. Ascending root 4.2 cm. No pleural effusion.. No pericardial effusion Liver, spleen, pancreas, adrenals, kidneys and bladder unremarkable. There is no evidence of diverticulitis. Normal appendix. Small left inguinal hernia IMPRESSION: Moderate acute bilateral pulmonary opacities consistent with pneumonia. This is super imposed over pu lmonary fibrosis. Moderate mediastinal lymphadenopathy. This could be reactive in nature. Neoplasm can also have this a ppearance.
--- NOTE | 2024-07-21 12:10 | P.PN ---
Subjective Date of Service: 07/21/24 Chief Complaint: Aspiration pneumonia No significant change scan done today shows progressive worsening in the lungs patient coughing up mucopurulent sputum Review of Systems General: Weakness Respiratory: Cough, Shortness of Breath Physical Examination - Vital Signs Temperature: 97.5 F Blood Pressure: 119/70 Pulse: 93 Respirations: 18 Pulse Ox (%): 91 - Physical Exam General: Alert, Oriented x3 Respiratory: Expiratory wheezes Cardiovascular: No edema, Regular rate/rhythm Assessment And Plan - Current Problems (Diagnosis) (1) Pneumonia Current Visit: Yes Status: Acute Plan: Patient has progressive pneumonia on the lower lobe to Zosyn cultures have been ordered t discontinue steroids count is progressively increasing no fever continues to remain hypoxic Qualifiers: Pneumonia type: due to unspecified organism
[2024-07-21] MEDS: PIPER TAZO 4.5 GM in NA CHLORIDE 0.9% 100 ML IV SCH ×2 (12:47→21:08)
[2024-07-21] MEDS ORDERED: predniSONE 10 MG TAB FT SCH (21:00)
[2024-07-21] MEDS: ATORVASTATIN 80 MG TAB FT SCH (21:09)
--- NOTE | 2024-07-21 22:50 | PN ---
Date of Progress Note: 07/21/2024 Subjective: The patient was seen this morning for followup. His was with him at bedside, appea rs weaker than normal, but unchanged from yesterday. The patient had emotional breakdown last night and he told his that he did not think that he was going to make it and asked his to do some video recording and send it to his children. Overnight this morning when I saw him, he was feeling better emotionally compared to last night. He is coughing up some purulent type of mucus this mornin g when I saw him. He is tolerating his feeding very well and yesterday he did ambulate multiple time s. Still has not had any bowel movement and MiraLAX has not helped him so far. Objective: Vital Signs: Reviewed. HEENT: Unremarkable. Lungs: Bilateral good equal air entry with presence of rales in lower half of both lung irvin, unch anged from yesterday. Heart: Sounds normal. Abdomen: Soft. Bowel sounds normal. No guarding, rigidity, tenderness, distention. Extremities: No leg edema. Laboratory Data: WBC has gone up today to 24.9, hemoglobin 13.3, platelets 195. Sodium 131, potassi um 4.5, chloride 97, bicarb 30, BUN 30, creatinine 0.85, glucose 139, magnesium 2.7, procalcitonin 0. 22. X-ray of abdomen done today was unremarkable. CAT scan of chest, abdomen, pelvis done today vinay ws evidence of pneumonia in both lung irvin, upper lobe and lower lobe. No acute finding in the abd omen. Impression: 1. Pneumonia, aspiration pneumonia. 2. Acute exacerbation of COPD. 3. Acute respiratory failure with hypoxia. 4. Hypertension. 5. Oral candidiasis. Plan: The patient's mouth is normal today and his thrush that he had has completely resolved with cu rrent medication. We will continue that and he is on oral fluconazole as well as clotrimazole. I nava d a long discussion with Dr. Baires couple of times today and after the CAT scan result, Dr. Ruba muller has started him on Zosyn. We will continue oxygen replacement therapy. The patient to continue t o continue to ambulate and I will see him tomorrow for followup. JOHN/MODL Voice ID: [id number] Report ID: [id number]
[2024-07-22 05:29] LABS: Absolute Eosinophils 0.1 K/uL (0-0.5); Absolute Lymphocytes (CBC) 0.5 K/uL (0.7-4.9); Absolute Monocytes 0.8 K/uL (0.1-1.3); Absolute Neutrophil 24.1 K/uL (1.8-8.0); Eosinophils % 0.6 % (0-4.4); Hematocrit 37.4 % (39.6-49.0); Hemoglobin 12.5 g/dL (13.6-17.9); Lymphocytes % 1.9 % (15.3-44.8); MCH 31.9 pg (27.0-35.0); MCHC 33.5 g/dL (32.0-36.0); MCV 95.3 fL (80-100); MPV 9.2 fL (7.6-11.3); Monocytes % 3.3 % (3.3-12.3); Neutrophils % 94.2 % (41.7-73.7); Platelets 176 thou/uL (152-406); RBC Red Blood Cell Count 3.92 M/uL (4.33-5.43); Red Cell Distribution Width 14.3 % (12.1-15.2)
[2024-07-22 06:01] LABS: Albumin 2.2 g/dL (3.4-5.0); Albumin/Globulin Ratio 0.6 (1.1-1.8); Anion Gap 8.1 mEq/L (5.0-15.0); Bilirubin Total 1.5 mg/dL (0.2-1.0); Globulin 3.9 g/dL (2.3-3.5); Magnesium 2.5 mg/dL (1.6-2.4); Potassium 4.1 mEq/L (3.5-5.1); Protein, Total 6.1 g/dL (6.4-8.2)
--- NOTE | 2024-07-22 08:00 | RAD REPORT ---
EXAMINATION: ONE VIEW CHEST XR CLINICAL INDICATION: pneumonia TECHNIQUE: Frontal chest projection is submitted. Examination is limited by patient positioning and t echnique. COMPARISON: 07/20/2024 FINDINGS: Moderate bilateral pulmonary opacities show no appreciable change since the comparison study. The hea rt is upper limit of normal in size. Sternotomy wires. IMPRESSION: No change in lung aeration seen since comparative examination.
--- NOTE | 2024-07-22 08:20 | P.PN ---
Subjective Date of Service: 07/22/24 Chief Complaint: Aspiration pneumonia No change stills feels weak has a cough congestion Review of Systems General: Weakness Respiratory: Cough, Shortness of Breath Physical Examination - Vital Signs Temperature: 99.6 F Blood Pressure: 138/79 Pulse: 97 Respirations: 18 Pulse Ox (%): 90 - Physical Exam General: Alert, Oriented x3, Mild distress Respiratory: Expiratory wheezes, Rhonchi/gurgles Cardiovascular: No edema, Regular rate/rhythm, Normal S1 S2 Assessment And Plan - Current Problems (Diagnosis) (1) Pneumonia Current Visit: Yes Status: Acute Plan: Patient has bilateral pneumonia condition stable count is still mildly elevated new with Zosyn low-dose prednisone and continues to remain hypoxic weak Qualifiers: Pneumonia type: due to unspecified organism
[2024-07-22] MEDS: AMLODIPINE 5 MG TAB FT SCH (09:00)
[2024-07-22 09:41] LABS: Blood Morphology Comment NOT SEEN (NOT SEEN); Differential Total Cells Count 100; Lymphocytes 2 % (15-42); Monocytes 5 % (0-10); Platelet Estimate ADEQ; Segmented Neutrophils 93 % (40-80)
[2024-07-22] MEDS: predniSONE 10 MG TAB PO SCH (10:25)
[2024-07-22] MEDS: FLUCONAZOLE 100 MG TAB FT SCH (10:26)
[2024-07-22] MEDS: Mupirocin NASAL 2 APPL/1 GM TUBE NAS SCH (10:28)
[2024-07-22] MEDS: DOXYCYCLINE 100 MG CAP PO SCH (10:29)
--- NOTE | 2024-07-22 17:12 | RAD REPORT ---
EXAMINATION: ONE VIEW CHEST XR CLINICAL INDICATION: Male, 78 years old.,picc placement TECHNIQUE: Frontal chest projection is submitted. Examination is limited by patient positioning and t echnique. COMPARISON: 07/22/2024 FINDINGS: Left arm PICC has been placed with catheter tip at the superior cavoatrial junction. Diffuse hyperluc ency and hyperinflation. Stable patchy central and basilar predominant airspace opacities, raising concern for underlying pneumonitis. No pneumothorax or sizable effusion. The heart is normal in size . Mediastinal contours are unremarkable. IMPRESSION: Satisfactory left arm PICC positioning. Other stable findings as above.
--- NOTE | 2024-07-23 02:30 | PN ---
Date of Progress Note: 07/22/2024 Subjective: The patient was seen this morning for followup. He was lying in bed, not in distress. was with him at bedside. No new complaints or problems reported. Physical Examination: Vital Signs: Reviewed. HEENT: Unremarkable. Lungs: Bilateral good equal air entry. Presence of scattered wheezing in all lung irvin with some presence of basal rales on both sides. Not using accessory muscles of respiration. Heart: Sounds normal. Abdomen: Soft. Bowel sounds normal. No guarding, rigidity, tenderness, distention. Extremities: No leg edema. Laboratory Data: WBC 25.5, hemoglobin 12.5, platelets 176. Sodium 132, potassium 4.1, chloride 98, bicarb 30, BUN 27, creatinine 0.92, glucose 114. Liver function tests unremarkable except ALT 83. C hest x-ray, unchanged from yesterday. Impression: 1. Aspiration pneumonia. 2. Pulmonary fibrosis. 3. Acute exacerbation of COPD. 4. Oral candidiasis. 5. Hypertension. 6. Acute respiratory failure with hypoxia. Plan: We will continue current oxygen replacement therapy. Continue current Zosyn nebulizer treatme nt. The patient was encouraged to continue to walk. We will go ahead and continue prednisone 10 mg daily for next 2 to 3 days, then reduce dose to 5 mg for 2 to 3 days, and then to stop. The patient is anticipated to stay in hospital for longer than expected time and I will go ahead and order PICC l ine for him. Details were discussed with him regarding this. The patient did have bowel movement ye sterday after Dulcolax rectal suppository and we will continue MiraLAX now. We will continue Zosyn. Continue current tube feeding, which he is tolerating very well and IV Lasix 20 mg daily. Starting tomorrow, I will be out of town and Hospitalist Team will take over this patient's care in my absence and Dr. Baires will continue to follow up with him. I have communicated details with hospitalist this evening. JOHN/MODL Voice ID: [id number] Report ID: [id number]
[2024-07-23 05:47] LABS: Absolute Eosinophils 0.4 K/uL (0-0.5); Absolute Lymphocytes (CBC) 0.6 K/uL (0.7-4.9); Absolute Monocytes 1.1 K/uL (0.1-1.3); Absolute Neutrophil 16.2 K/uL (1.8-8.0); Eosinophils % 2.3 % (0-4.4); Lymphocytes % 3.2 % (15.3-44.8); MCHC 33.5 g/dL (32.0-36.0); MCV 95.7 fL (80-100); MPV 8.9 fL (7.6-11.3); Monocytes % 5.9 % (3.3-12.3); Neutrophils % 88.6 % (41.7-73.7); Platelets 180 thou/uL (152-406); RBC Red Blood Cell Count 3.76 M/uL (4.33-5.43); Red Cell Distribution Width 13.9 % (12.1-15.2)
[2024-07-23 06:10] LABS: Anion Gap 6.6 mEq/L (5.0-15.0); Magnesium 2.4 mg/dL (1.6-2.4); Potassium 3.6 mEq/L (3.5-5.1)
--- NOTE | 2024-07-23 18:38 | P.PN ---
Subjective Date of Service: 07/23/24 Chief Complaint: Aspiration pneumonia Patient's condition is improving still feeling very weak is ambulating Review of Systems General: Weakness Respiratory: Cough, Shortness of Breath Physical Examination - Vital Signs Temperature: 98.5 F Blood Pressure: 102/53 Pulse: 83 Respirations: 16 Pulse Ox (%): 96 - Physical Exam General: Alert, Oriented x3 Respiratory: Diminished Cardiovascular: No edema, Regular rate/rhythm, Normal S1 S2 Assessment And Plan - Current Problems (Diagnosis) (1) Pneumonia Current Visit: Yes Status: Acute Plan: Patient admitted with bilateral pneumonia worsened his white count is started to decline he is on doxycycline and Zosyn I will also added Cipro floxacillin patient has isolated Klebsiella and Enterococcus in the sputum vital signs stable oxygenation satisfactory patient's blood pressure is low stop Lasix and amlodipine for now Qualifiers: Pneumonia type: due to other aerobic Gram-negative bacteria Laterality: unspecified laterality
[2024-07-23] MEDS: CIPROFLOXACIN HCL 500 MG TAB PO SCH (21:18)
--- NOTE | 2024-07-24 01:46 | P.PN ---
Subjective Date of Service: 07/23/24 Subjective: Ambulating, Improving Charted and reviewed; events of the last 24 hours been noted. Patient presented with aspiration pneumonia and clinical symptoms worsened. However, he is recovering and is ambulating without a lot of difficulty. His oxygen saturations have improved. He is only on 1 to 2 L. Will continue to wean him off over the next 24 to 48 hours. Possible discharge on Friday when his primary care provider Dr. Small comes back.Patient is doing better. Patient is ambulating well. Strength has improved. Working on trying to get him off oxygen. Currently on 1 to 2 L. Hopefully in the morning we can wean patient off completely. Review of Systems 10-point ROS is otherwise unremarkable Physical Examination - Vital Signs Temperature: 97.4 F Blood Pressure: 125/58 Pulse: 75 Respirations: 18 Pulse Ox (%): 94 - Physical Exam General: Alert, In no apparent distress HEENT: Atraumatic, PERRLA, EOMI Neck: Supple, JVD not distended Respiratory: Clear to auscultation bilaterally, Normal air movement Cardiovascular: Regular rate/rhythm, Normal S1 S2 Gastrointestinal: Normal bowel sounds, No tenderness Musculoskeletal: No tenderness Integumentary: No rashes Neurological: Normal speech, Normal tone, Normal affect Lymphatics: No axilla or inguinal lymphadenopathy - Studies Medications List Reviewed: Yes Assessment & Plan - Problems (Diagnosis) (1) Pneumonia Current Visit: Yes Status: Acute Qualifiers: Pneumonia type: due to other aerobic Gram-negative bacteria Laterality: unspecified laterality (2) Aspiration pneumonia Current Visit: Yes Status: Acute (3) Dysphagia Current Visit: Yes Status: Acute (4) Abnormal esophagram Current Visit: Yes Status: Acute - Plan - Current Problems (Diagnosis) Plan: 1. Patient with aspiration pneumonia; continue with antibiotic therapy and monitor nutritional status closely. Encourage aspiration precautions while ever he eats. 2. History of hypoxemia; related to aspiration and possible pneumonitis. Oxygen requirements have improved and patient will be continued to wean down and hopefully we can wean off of the next 48 hours 3. Leukocytosis; Continue with antibiotics and hydration 4. Generalized weakness and dysphagia;Continue with physical therapy. Continue with speech therapy. Discharge Plan: Home Plan to discharge in: 72 Hours - Advance Directives Does patient have a Living Will: No Does patient have a Durable POA for Healthcare: Yes - Code Status/Comfort Care Code Status Assessed: Yes Code Status: Full Code Critical Care: No Time Spent Managing PTS Care (In Minutes): 30
--- NOTE | 2024-07-25 00:46 | P.PN ---
Date of Service: 07/24/24 Subjective Patient clinically doing better. He is on 0.5 L of oxygen. Will go ahead and try to get him off today or in the morning and keep him off as long as his oxygen saturation are greater than or 92%. Patient is ambulating really well and he denies losing his breath. His clinical symptoms have improved remarkably. Physical Examination - Vital Signs Reviewed - Physical Exam General: Alert, In no apparent distress Respiratory: Clear to auscultation bilaterally, Normal air movement Cardiovascular: Regular rate/rhythm, Normal S1 S2 Gastrointestinal: Normal bowel sounds, No tenderness Neurological: Normal speech, Normal tone, Normal affect Assessment & Plan - Problems (Diagnosis) (1) Pneumonia Current Visit: Yes Status: Acute Qualifiers: Pneumonia type: due to other aerobic Gram-negative bacteria Laterality: unspecified laterality (2) Aspiration pneumonia Current Visit: Yes Status: Acute (3) Dysphagia Current Visit: Yes Status: Acute (4) Abnormal esophagram Current Visit: Yes Status: Acute - Plan Continue with plan of care as mentioned below: 1. Patient with aspiration pneumonia; continue with antibiotic therapy and monitor nutritional status closely. Encourage aspiration precautions while ever he eats. 2. History of hypoxemia; related to aspiration and possible pneumonitis. O xygen requirements have improved and patient will be continued to wean down and hopefully we can wean off in AM 3. Leukocytosis; Continue with antibiotics and hydration 4. Generalized weakness and dysphagia;Continue with physical therapy. Continue with speech therapy. Discharge Plan: Home Plan to discharge in: 72 Hours - Advance Directives Does patient have a Living Will: No Does patient have a Durable POA for Healthcare: Yes - Code Status/Comfort Care Code Status Assessed: Yes Code Status: Full Code Critical Care: No Time Spent Managing PTS Care (In Minutes): 30
[2024-07-25 05:22] LABS: Absolute Eosinophils 0.4 K/uL (0-0.5); Absolute Lymphocytes (CBC) 0.8 K/uL (0.7-4.9); Absolute Monocytes 1.1 K/uL (0.1-1.3); Absolute Neutrophil 8.1 K/uL (1.8-8.0); Basophils % 0.3 % (0-1.3); Eosinophils % 4.1 % (0-4.4); Hematocrit 32.3 % (39.6-49.0); Hemoglobin 11.2 g/dL (13.6-17.9); MCH 32.7 pg (27.0-35.0); MCHC 34.6 g/dL (32.0-36.0); MCV 94.5 fL (80-100); MPV 8.7 fL (7.6-11.3); Monocytes % 10.6 % (3.3-12.3); Platelets 160 thou/uL (152-406); RBC Red Blood Cell Count 3.41 M/uL (4.33-5.43); Red Cell Distribution Width 14.3 % (12.1-15.2)
[2024-07-25 05:45] LABS: Albumin/Globulin Ratio 0.5 (1.1-1.8); Anion Gap 5.9 mEq/L (5.0-15.0); Bilirubin Total 0.9 mg/dL (0.2-1.0); Globulin 3.9 g/dL (2.3-3.5); Magnesium 2.1 mg/dL (1.6-2.4); Potassium 3.9 mEq/L (3.5-5.1); Protein, Total 5.9 g/dL (6.4-8.2)
[2024-07-25] MEDS ORDERED: POTASSIUM CL SA 10 MEQ TAB PO ONE (06:19)
[2024-07-25] MEDS: ALBUTEROL 2.5 MG/3 ML NEB SOL NEB PRN (07:41)
--- NOTE | 2024-07-25 08:24 | RAD REPORT ---
Procedure: Chest Single View HISTORY: Cough COMPARISON: July 22, 2024 FINDINGS: Worsening in a mid left lung opacity. No significant change in additional bilateral pulmonary opacities. No significant pleural effusion noted. The heart is normal size. IMPRESSION: Worsening in mid left lung opacity likely represents pneumonia No significant change in additional bilateral pulmonary opacities with a combination of pneumonia sup erimposed over pulmonary fibrosis
[2024-07-25] MEDS: AMOXICILLIN TRIHYDR 250 MG CAP FT SCH (10:15)
[2024-07-25] MEDS: POTASSIUM CL SA 10 MEQ TAB PO ONE (10:16)
--- NOTE | 2024-07-25 11:36 | P.PN ---
Subjective Date of Service: 07/25/24 Chief Complaint: Aspiration pneumonia/pulmonary fibrosis Patient is improving ambulating still continues to remain hypoxic white count is back down to normal chest congestion has improved Review of Systems General: Weakness Respiratory: Cough, Shortness of Breath Physical Examination - Vital Signs Temperature: 97.1 F Blood Pressure: 100/59 Pulse: 73 Respirations: 18 Pulse Ox (%): 93 - Physical Exam General: Alert, Oriented x3 Respiratory: Rhonchi/gurgles (Rhonchi more prominent on the right side) Cardiovascular: No edema, Regular rate/rhythm, Normal S1 S2 - Studies Medications List Reviewed: Yes Assessment And Plan - Current Problems (Diagnosis) (1) Pneumonia Current Visit: Yes Status: Acute Plan: Patient's condition is improving Enterococcus sensitive to penicillin changed to amoxicillin via the PEG tube continue with Cipro floxacillin discontinue steroids history is reviewed repeat sputum culture pending continue with doxycycline at risk for staph infection Qualifiers: Pneumonia type: due to other aerobic Gram-negative bacteria Laterality: unspecified laterality (2) Pulmonary fibrosis Current Visit: Yes Status: Acute Plan: May have underlying pulmonary fibrosis to his interstitial changes plan to set up with home oxygen for now
[2024-07-25] MEDS: ALBUTEROL 2.5 MG/3 ML NEB SOL ONE (20:29)
[2024-07-26] MEDS: ALBUTEROL 2.5 MG/3 ML NEB SOL ONE ×2 (01:21→20:22)
[2024-07-26] MEDS: predniSONE 10 MG TAB PO SCH (10:12)
[2024-07-26] MEDS: JEVITY 1.5 CAL LIQUID 1,000 ML BOT FT SCH (10:40)
--- NOTE | 2024-07-26 21:45 | PN ---
Date of Progress Note: 07/26/2024 Subjective: The patient was seen this morning for followup. Hospital records over last 3 days revie fri during my absence. This morning when I saw him, he was sitting upright in bed. His was wit h him at bedside. He was on nasal cannula oxygen 1.5 L/minute. He is ambulating well and responded well to MiraLAX for constipation problem. Objective: Vital Signs: Reviewed. HEENT: Unremarkable. Lungs: Bilateral good equal air entry. Presence of basal rales with some scattered wheezing noted. Not in any respiratory distress. Overall, lung findings are better today than last time when I saw him on . Heart: Sounds normal. Abdomen: Soft. Bowel sounds normal. No guarding, rigidity, tenderness, distention. Extremities: No leg edema. Laboratory Data: No labs today, but yesterday's WBC was 10.5, hemoglobin 11.2, platelets 160 with so dium 134, potassium 3.9, chloride 101, bicarb 31, BUN 22, creatinine 0.74, glucose 98. AST 104, ALT 203, alkaline phosphatase 100, total bilirubin 0.9. Chest x-ray had shown worsening of mid left lung opacity and no significant change and additional bilateral pulmonary opacities. Impression: 1. Aspiration pneumonia. 2. Pulmonary fibrosis. 3. Respiratory failure with hypoxia. 4. Hypertension. 5. Anemia. 6. Chronic diastolic heart failure. 7. Constipation. Plan: We will go ahead and continue current medication. Continue current antibiotic which is amoxic illin and Cipro. Last week when I saw him, he was on Zosyn and over the weekend, Dr. Baires change d antibiotics after getting sputum culture result, which showed Klebsiella and Enterococcus faecalis, so according to sensitivity result, he has started this antibiotics. The patient has responded well and he also has requested arrangements to be made for home oxygen. The patient already has received oxygen concentrator for home use, but he need some portable oxygen and nurse was advised to communic ate with social media executive to arrange for portable oxygen concentrator. Ambulation was encouraged. He w as advised to continue to use MiraLAX and I will see him tomorrow for followup, possible discharge to go home tomorrow or day after tomorrow depending on his condition. Nursing staff not able to find J evity 1.5 in the hospital. The patient's has Jevity 1.5 at home and another comparable feeding formula, so I will be using her formula from home. The patient has lost about 9 pounds since he has been in the hospital, so instead of 4 cans a day, we will see if we can give him 5 cans a day if he t olerates for extra nutrition. JOHN/MODL Voice ID: [id number] Report ID: [id number]
[2024-07-27] MEDS: ALBUTEROL 2.5 MG/3 ML NEB SOL ONE (02:37)
[2024-07-27 06:42] LABS: Absolute Eosinophils 0.5 K/uL (0-0.5); Absolute Lymphocytes (CBC) 0.7 K/uL (0.7-4.9); Absolute Monocytes 0.7 K/uL (0.1-1.3); Basophils % 0.4 % (0-1.3); Eosinophils % 6.9 % (0-4.4); Hemoglobin 11.1 g/dL (13.6-17.9); Lymphocytes % 8.9 % (15.3-44.8); MCH 32.6 pg (27.0-35.0); MCHC 33.6 g/dL (32.0-36.0); MPV 8.5 fL (7.6-11.3); Monocytes % 8.6 % (3.3-12.3); Neutrophils % 75.2 % (41.7-73.7); Nucleated Red Blood Cells % 0.1 % (0-0); Platelets 163 thou/uL (152-406); RBC Red Blood Cell Count 3.41 M/uL (4.33-5.43); Red Cell Distribution Width 14.1 % (12.1-15.2)
[2024-07-27 07:03] LABS: Albumin 1.9 g/dL (3.4-5.0); Albumin/Globulin Ratio 0.5 (1.1-1.8); Anion Gap 8.2 mEq/L (5.0-15.0); Bilirubin Total 0.6 mg/dL (0.2-1.0); Globulin 3.8 g/dL (2.3-3.5); Magnesium 2.1 mg/dL (1.6-2.4); Potassium 4.2 mEq/L (3.5-5.1); Protein, Total 5.7 g/dL (6.4-8.2)
[2024-07-27 09:14] VITALS: O2SAT 93
[2024-07-27 12:52] VITALS: BP 109/63; TEMP 97.9
== END 2024-07-27 12:37 | disposition home health service (06) | DRG 177 ==
LOC: ER 01:19 → ERHOLD 06:58 → 2ND 15:02 → 3RD-ICU 07-12 17:35 → 2ND 07-13 22:00
PROVIDERS: ADMIT Internal Medicine; ATTEND Internal Medicine
PROC: 4A033R1 Measurement of Arterial Saturation, Peripheral, Percutaneous Approach (ICD-10-PCS; 2024-07-12)
PROC: 5A09557 Assistance with Respiratory Ventilation, Greater than 96 Consecutive Hours, Continuous Positive Airway Pressure (ICD-10-PCS; 2024-07-12)
PROC: 0DB78ZX Excision of Stomach, Pylorus, Via Natural or Artificial Opening Endoscopic, Diagnostic (ICD-10-PCS; 2024-07-14)
PROC: 0DH63UZ Insertion of Feeding Device into Stomach, Percutaneous Approach (ICD-10-PCS; 2024-07-14)
PROC: 0DB68ZX Excision of Stomach, Via Natural or Artificial Opening Endoscopic, Diagnostic (ICD-10-PCS; principal; 2024-07-14 11:00)
PROC: 02HV33Z Insertion of Infusion Device into Superior Vena Cava, Percutaneous Approach (ICD-10-PCS; 2024-07-22)
DX: J69.0 Pneumonitis due to inhalation of food and vomit (principal); I50.33 Acute on chronic diastolic (congestive) heart failure; J96.01 Acute respiratory failure with hypoxia; K29.01 Acute gastritis with bleeding; J44.1 Chronic obstructive pulmonary disease with (acute) exacerbation; J44.0 Chronic obstructive pulmonary disease with (acute) lower respiratory infection; B37.0 Candidal stomatitis; J20.9 Acute bronchitis, unspecified; I11.0 Hypertensive heart disease with heart failure; K44.9 Diaphragmatic hernia without obstruction or gangrene; E03.9 Hypothyroidism, unspecified; E78.2 Mixed hyperlipidemia; D69.6 Thrombocytopenia, unspecified; D64.9 Anemia, unspecified; J84.10 Pulmonary fibrosis, unspecified; I77.9 Disorder of arteries and arterioles, unspecified; C02.9 Malignant neoplasm of tongue, unspecified; N40.0 Benign prostatic hyperplasia without lower urinary tract symptoms; I25.10 Atherosclerotic heart disease of native coronary artery without angina pectoris; I25.2 Old myocardial infarction; B95.2 Enterococcus as the cause of diseases classified elsewhere; R59.1 Generalized enlarged lymph nodes; R13.10 Dysphagia, unspecified; R73.01 Impaired fasting glucose; Z95.1 Presence of aortocoronary bypass graft; Z11.52 Encounter for screening for COVID-19; Z79.82 Long term (current) use of aspirin; Z91.018 Allergy to other foods; Z79.890 Hormone replacement therapy; Z79.899 Other long term (current) drug therapy
CPT/HCPCS: 36415; 36600; 71045; 71046; 71260; 74018; 74177; 74230; 80048; 80053; 80202; 81003; 82805; 82947; 83605; 83735; 83880; 84145; 84484; 85025; 85610; 85730; 87040; 87070; 87077; 87186; 87205; 87804; 87807; 87811; 88305; 88312; 92526; 92611; 93005; 93306; 94640; 94660; 94668; 96365; 96375; 97116; 97161; 99285; J0171; J0692; J1650; J1940; J2003; J2185; J2405; J2470; J2543; J2704; J2919; J3535; J7030; J7042; J7050; J7120; J7512; J7608; J7613; J7644; Q9967

== ENCOUNTER 2024-08-25 16:48 | Observation (INO) | payer OTHER ==
[2024-08-25] MEDS ORDERED: NA CHLORIDE 0.9% 1,000 ML ONE ×2 (17:17→19:44)
[2024-08-25 17:38] LABS: Absolute Basophils 0.1 K/uL (0-0.5); Absolute Eosinophils 0.1 K/uL (0-0.5); Absolute Lymphocytes (CBC) 0.2 K/uL (0.7-4.9); Absolute Monocytes 0.4 K/uL (0.1-1.3); Absolute Neutrophil 11.2 K/uL (1.8-8.0); Basophils % 0.5 % (0-1.3); Eosinophils % 1.2 % (0-4.4); Hematocrit 43.8 % (39.6-49.0); Hemoglobin 14.9 g/dL (13.6-17.9); Lymphocytes % 1.6 % (15.3-44.8); MPV 10.3 fL (7.6-11.3); Monocytes % 3.5 % (3.3-12.3); Neutrophils % 93.2 % (41.7-73.7); Platelets 108 thou/uL (152-406); RBC Red Blood Cell Count 4.52 M/uL (4.33-5.43); Red Cell Distribution Width 14.9 % (12.1-15.2)
[2024-08-25 17:50] LABS: PT Prothrombin Time 12.8 SECONDS (10-13.0); Protime INR 1.13
[2024-08-25 17:57] LABS: Albumin 3.3 g/dL (3.4-5.0); Albumin/Globulin Ratio 0.7 (1.1-1.8); Anion Gap 8.5 mEq/L (5.0-15.0); Bilirubin Direct 0.2 mg/dL (0-0.2); Bilirubin Indirect, Calculated 0.6 mg/dL (0.2-0.8); Bilirubin Total 0.8 mg/dL (0.2-1.0); Globulin 4.7 g/dL (2.3-3.5); Magnesium 1.9 mg/dL (1.6-2.4); Potassium 4.5 mEq/L (3.5-5.1); Troponin High Sensitivity 4.4 pg/mL (<58.9)
--- NOTE | 2024-08-25 18:33 | RAD REPORT ---
EXAM: Chest Abdomen Pelvis W Cont CLINICAL INDICATION: Male, 78 years aspiration and n/v/d TECHNIQUE: CT chest, abdomen and pelvis was performed, with IV contrast, as per department protocol. Axial, sagittal and coronal reconstructions were obtained. One or more of the following dose reduction techniques were used: Automated exposure control, adjustment of the mA and/or kV according to the patient size, and/or iterative reconstruction. Unless otherwise specified, incidental findings do not require dedicated imaging follow-up. [id number]. COMPARISON: 07/21/2024 FINDINGS: THORAX: LOWER NECK AND CHEST WALL: Visualized thyroid gland and soft tissues are normal. LUNGS AND AIRWAYS: Pulmonary fibrotic changes.Motion artifact limits evaluation for pulmonary nodule detection. No definite acute process identified. PLEURA: No pleural effusion. No pneumothorax. MEDIASTINUM AND LYMPH NODES: Enlarged mediastinal and hilar lymph nodes which are likely reactive. Di ffuse thickening of the esophagus. Small hiatal hernia. Fluid is present within the esophagus. THORACIC AORTA: No thoracic aortic aneurysm. Atherosclerotic changes are present. PULMONARY ARTERIES: Caliber is within normal limits. No pulmonary emboli identified to the level of t he segmental pulmonary arteries. The subsegmental pulmonary arteries cannot be adequately assessed due to motion/suboptimal contrast opacification. HEART: Normal heart size. No coronary calcifications.No significant pericardial effusion. ABDOMEN/PELVIS: UPPER GI: Gastrostomy tube. The stomach is distended with fluid. LIVER: Hepatic steatosis, but otherwise unremarkable. GALLBLADDER/BILE DUCTS: No biliary ductal dilatation.? PANCREAS: No mass, ductal dilation, or aydee-pancreatic fluid. SPLEEN: Unremarkable. ADRENALS: No adrenal masses. KIDNEYS AND URETERS: No hydronephrosis.Low density and/or too small to characterize renal lesions whi ch are statistically benign. ABDOMINAL AORTA AND OTHER VESSELS: Mild atherosclerotic changes. PERITONEUM: No abnormal free fluid. No free air. LYMPH NODES: No pathologic lymphadenopathy. ABDOMINAL WALL: Fat-containing inguinal hernias SMALL BOWEL/COLON: Small bowel has normal course and caliber. No colonic wall thickening or pericolon ic inflammatory changes.Normal appendix. URINARY BLADDER: Underdistended but grossly unremarkable. REPRODUCTIVE ORGANS: No pathologic process. COMBINED: MUSCULOSKELETAL: No acute or suspicious osseous abnormality. Sternotomy. ADDITIONAL FINDINGS: None. IMPRESSION: Moderate fluid distended stomach and distal esophagus with gastrostomy tube in place. Though no overt evidence of acute aspiration, nevertheless the patient may be at risk for aspiration. Ancillary findings as noted above.
[2024-08-25] MEDS ORDERED: ACETAMINOPHEN 325 MG TABLET ONE (18:46)
[2024-08-25 18:48] LABS: Specific Gravity > 1.030 (1.005-1.030); Sqamous Epithelial None Seen /HPF (None Seen); Urine Bacteria None Seen /HPF (<20); Urine Bilirubin NEGATIVE (Negative); Urine Blood Negative (Negative); Urine Clarity Clear (Clear); Urine Color Light-Yellow (Yellow); Urine Crystals Unidentified Few /HPF (None Seen); Urine Culture Reflex Order NOT NEEDED; Urine Glucose NEGATIVE (Negative); Urine Ketones NEGATIVE (Negative); Urine Micro Reflex YN NO BILL MICROSCOPIC; Urine Mucus Slight /HPF (None Seen); Urine Nitrite NEGATIVE (Negative); Urine Protein TRACE (Negative); Urine RBC <5 /HPF (None Seen); Urine Urobilinogen Normal (Normal); Urine WBC <5 /HPF (<5); Urine WBC Clump Rare /HPF (None Seen)
--- NOTE | 2024-08-25 19:14 | EDPHYS ---
Physician Documentation [facility] Name: Thad Morales Age: 78 yrs Sex: Male : 1945 Arrival Date: 08/25/2024 Time: 16:48 Bed 4 Private MD: ED Physician Jake Barnett HPI: 08/25 17:26 This 78 yrs old Male presents to ER via Ambulatory with complaints of Vomiting/Diarrhea.sp3 17:26 78-year-old male with history of throat cancer status posttreatment many years ago, sp3 recent aspiration pneumonia requiring feeding tube moving forward, history of PR, hyperlipidemia, hypothyroidism who is a patient of Dr. Small presents to the ED with chief complaint diffuse abdominal pain, vomiting and diarrhea. Patient did have a sick contact with his who had similar symptoms approximately 1 week ago. There was some talk about low oxygen levels however he arrives to the ED with normal saturation. He does have a oxygen concentrator that he uses as needed. Patient denies any other symptoms including objective measured fever, headache, neck pain, chest pain, shortness of breath, back pain, syncope, near syncope, bleeding, rash, or any other signs or symptoms on ROS at this time.. Historical: - Allergies: 17:18 No Known Allergies; kc6 - PMHx: 17:18 throat cancer; Pneumonia; Myocardial infarction; Hypothyroidism; Hypercholesterolemia; kc6 - PSHx: 17:18 HEART BYPASS 2017; kc6 - Immunization history:: Adult Immunizations up to date. - Infectious Disease History:: Denies. - Social history:: Smoking status: Patient denies any tobacco usage or history of. ROS: 17:30 Constitutional: Negative for fever, chills, and weight loss, Eyes: Negative for injury, sp3 pain, redness, and discharge, Neck: Negative for injury, pain, and swelling, Cardiovascular: Negative for chest pain, palpitations, and edema, Back: Negative for injury and pain, MS/Extremity: Negative for injury and deformity, Skin: Negative for injury, rash, and discoloration, Neuro: Negative for headache, weakness, numbness, tingling, and seizure, Psych: Negative for depression, anxiety, suicide ideation, homicidal ideation, and hallucinations, Allergy/Immunology: Negative for hives, rash, and allergies, Endocrine: Negative for neck swelling, polydipsia, polyuria, polyphagia, and marked weight changes, 17:30 All other systems are negative, Exam: 17:30 Constitutional: This is a well developed, well nourished patient who is awake, alert, sp3 and in no acute distress. Head/Face: Normocephalic, atraumatic. Eyes: Pupils equal round and reactive to light, extra-ocular motions intact. Lids and lashes normal. Conjunctiva and sclera are non-icteric and not injected. Cornea within normal limits. Periorbital areas with no swelling, redness, or edema. Neck: Trachea midline, no thyromegaly or masses palpated, and no cervical lymphadenopathy. Supple, full range of motion without nuchal rigidity, or vertebral point tenderness. No Meningismus. Chest/axilla: Normal chest wall appearance and motion. Nontender with no deformity. No lesions are appreciated. Respiratory: Lungs have equal breath sounds bilaterally, clear to auscultation and percussion. No rales, rhonchi or wheezes noted. No increased work of breathing, no retractions or nasal flaring. Back: No spinal tenderness. No costovertebral tenderness. Full range of motion. Skin: Warm, dry with normal turgor. Normal color with no rashes, no lesions, and no evidence of cellulitis. MS/ Extremity: Pulses equal, no cyanosis. Neurovascular intact. Full, normal range of motion. Neuro: Awake and alert, GCS 15, oriented to person, place, time, and situation. Cranial nerves II-XII grossly intact. Motor strength 5/5 in all extremities. Sensory grossly intact. Cerebellar exam normal. Normal gait. Psych: Awake, alert, with orientation to person, place and time. Behavior, mood, and affect are within normal limits. 17:30 Cardiovascular: Rate: tachycardic, 17:30 Abdomen/GI: Mild crampy pain to palpation without peritoneal signs, rebound or guarding., 17:33 ECG was reviewed by the Attending Physician. EKG demonstrates sinus tachycardia with sp3 heart rate 120, normal intervals except QTc of 633, normal QRS, normal axis, nonspecific diffuse ST/T-segments without evidence of acute ischemia. Vital Signs: 17:16 BP 139 / 76; Pulse 121; Resp 28 S; Temp 99.3(O); Pulse Ox 100% on R/A; Pain 0/10; kc6 17:36 BP 124 / 72; Pulse 114; Resp 25 S; Pulse Ox 100% on R/A; kc6 18:06 BP 137 / 75; Pulse 121; Resp 21 S; Temp 99.9(O); Pulse Ox 99% on R/A; kc6 18:59 BP 90 / 55; Pulse 123; Resp 26 S; Pulse Ox 98% on R/A; kc6 20:12 BP 93 / 61; Pulse 111; Resp 18; Pulse Ox 100% on R/A; kd3 17:16 Pain Scale: Adult kc6 MDM: 17:01 Medical Screening Exam initiated sp3 17:32 Data reviewed: vital signs, nurses notes, old medical records, lab test result(s), EKG, sp3 radiologic studies. ED course: 78-year-old male with PMH above now with vomiting and diarrhea and crampy abdominal pain with tachycardia. Differential diagnosis includes dehydration, gastroenteritis, other enteric pathology, among others. I am not highly suspicious of pulmonary aspiration, pneumonia, sepsis, shock or any other critical process. Workup will include CT scan of the chest abdomen pelvis, general labs, EKG and general supportive care. IV fluids also ordered. Disposition pending workup and patient course with probable admission for at least observation.. 19:11 ED course: Labs without significant findings as well as CT. Will place in observation sp3 and continue IV fluids and supportive care. Discussed with Dr. Small will be seeing patient in the morning.. 08/25 17:20 Order name: Basic Metabolic Panel; Complete Time: 18:34 sp3 08/25 17:20 Order name: CBC with Diff; Complete Time: 18:34 sp3 08/25 17:20 Order name: LFT's; Complete Time: 18:34 sp3 08/25 17:20 Order name: Magnesium; Complete Time: 18:34 sp3 08/25 17:20 Order name: NT PRO-BNP; Complete Time: 18:34 sp3 08/25 17:20 Order name: PT-INR; Complete Time: 18:34 sp3 08/25 17:20 Order name: Troponin HS; Complete Time: 18:34 sp3 08/25 17:20 Order name: Lipase; Complete Time: 18:34 sp3 08/25 17:20 Order name: UAM; Complete Time: 18:50 sp3 08/25 17:32 Order name: Lactate w/ 2H reflex if indic.; Complete Time: 18:34 sp3 08/25 19:19 Order name: COVID-19 Ag + Flu A+B Ag sp3 08/25 17:20 Order name: CT Chest, Abdomen, Pelvis - W/Contrast; Complete Time: 18:34 sp3 08/25 17:20 Order name: EKG; Complete Time: 17:21 sp3 08/25 17:20 Order name: Cardiac monitoring; Complete Time: 17:21 sp3 08/25 17:20 Order name: EKG - Nurse/Tech; Complete Time: 17:32 sp3 08/25 17:20 Order name: IV Saline Lock; Complete Time: 17:36 sp3 08/25 17:20 Order name: Labs collected and sent; Complete Time: 17:36 sp3 08/25 17:20 Order name: O2 Per Protocol; Complete Time: 17:21 sp3 08/25 17:20 Order name: O2 Sat Monitoring; Complete Time: 17:21 sp3 Administered Medications: 17:30 Drug: NS 0.9% IV 1000 ml IV at 1000 ml once; to be given as a bolus over 60 minutes db Route: IV; Rate: 1000 ml; Site: right antecubital; 18:06 Follow up: Response: No adverse reaction; IV Status: Completed infusion; IV Intake: kc6 1000ml 18:58 Drug: Acetaminophen PO 650 mg PO once Route: Feeding Tube; kc6 Disposition Summary: 08/25/24 19:13 Hospitalization Ordered Notes: Hospitalization Status: Observation sp3 Provider: Rj Small speSrgio Location: Telemetry/[facility] (observation) sp3 Condition: Stable sp3 Problem: new sp3 Symptoms: are unchanged sp3 Bed/Room Type: Standard sp3 Room Assignment: 210(08/25/24 19:51) rv1 Diagnosis - Gastroenteritis, dehydration sp3 Forms: - Medication Reconciliation Form sp3 - SBAR form sp3 - Leadership Thank You Letter sp3 Signatures: Dispatcher [employer] Jake Santiago MD MD sp3 Radha Monique RN RN kc6 Angela Washington RN RN db Serena Pacheco rv1 Corrections: (The following items were deleted from the chart) 17:21 17:21 Chest Abdomen Pelvis W Con+CT.RAD.BRZ ordered. EDMS EDMS 19:51 19:13 sp3 rv1
--- NOTE | 2024-08-25 19:14 | ER ---
Nurse's Notes [facility] Name: Thad Morales Age: 78 yrs Sex: Male : 1945 Arrival Date: 08/25/2024 Time: 16:48 Bed 4 Private MD: Diagnosis: Gastroenteritis, dehydration Presentation: 08/25 17:16 Chief complaint: Patient states: n/v/d with subjective low grade fever starting this kc6 afternoon. also reports he started using his home oxygen again today and that is abnormal for him. Coronavirus screen: At this time, the client does not indicate any symptoms associated with coronavirus-19. Ebola Screen: No symptoms or risks identified at this time. Initial Sepsis Screen: Does the patient meet any 2 criteria? RR > 20 per min. HR > 90 bpm. Does the patient have a suspected source of infection? No. Patient's initial sepsis screen is negative. Risk Assessment: Do you want to hurt yourself or someone else? Patient reports no desire to harm self or others. Onset of symptoms was August 25, 2024. 17:16 Method Of Arrival: Ambulatory [facility] 17:16 Acuity: ADARSH 2 [facility] Historical: - Allergies: 17:18 No Known Allergies; [facility] - PMHx: 17:18 throat cancer; Pneumonia; Myocardial infarction; Hypothyroidism; Hypercholesterolemia; [facility] - PSHx: 17:18 HEART BYPASS 2017; [facility] - Immunization history:: Adult Immunizations up to date. - Infectious Disease History:: Denies. - Social history:: Smoking status: Patient denies any tobacco usage or history of. Screenin:18 [facility] ED Fall Risk Assessment (Adult) History of falling in the last 3 months, [facility] including since admission No falls in past 3 months (0 pts) Confusion or Disorientation No (0 pts) Intoxicated or Sedated No (0 pts) Impaired Gait No (0 pts) Mobility Assist Device Used No (0 pt) Altered Elimination No (0 pt) Score/Fall Risk Level 0 - 2 = Low Risk Oriented to surroundings, Maintained a safe environment, Educated pt \T\ family on fall prevention, incl call for assistance when getting out of bed. Abuse screen: Denies threats or abuse. Denies injuries from another. Nutritional screening: No deficits noted. Tuberculosis screening: No symptoms or risk factors identified. Assessment: 17:37 General: Appears in no apparent distress. comfortable, well groomed, well developed, kc6 Behavior is calm, cooperative, appropriate for age. Pain: Denies pain. Neuro: Level of Consciousness is awake, alert, obeys commands, Oriented to person, place, time, situation, Appropriate for age. Cardiovascular: Denies chest pain, Heart tones S1 S2 present Capillary refill < 3 seconds Rhythm is sinus tachycardia. Respiratory: Airway is patent Trachea midline Respiratory effort is even, unlabored, Respiratory pattern is regular, symmetrical. GI: Abdomen is flat, non-distended, PEG tube in place, clamped. to gravity drainage. Site clean. Bowel sounds present X 4 quads. Abd is soft and non tender X 4 quads. Reports diarrhea, nausea, vomiting, Patient currently denies abdominal pain. : No signs and/or symptoms were reported regarding the genitourinary system. EENT: No signs and/or symptoms were reported regarding the EENT system. Derm: No signs and/or symptoms reported regarding the dermatologic system. Skin is intact, is healthy with good turgor, Skin is pink, warm \T\ dry. Musculoskeletal: No signs and/or symptoms reported regarding the musculoskeletal system. Circulation, motion, and sensation intact. Range of motion: intact in all extremities. 18:06 Reassessment: Patient appears in no apparent distress at this time. No changes from kc6 previously documented assessment. Patient and/or family updated on plan of care and expected duration. Pain level reassessed. Patient is alert, oriented x 3, equal unlabored respirations, skin warm/dry/pink. 18:58 Reassessment: Patient appears in no apparent distress at this time. No changes from kc6 previously documented assessment. Patient and/or family updated on plan of care and expected duration. Pain level reassessed. Patient is alert, oriented x 3, equal unlabored respirations, skin warm/dry/pink. 20:21 General: Appears in no apparent distress. Behavior is calm, cooperative. Neuro: Level kd3 of Consciousness is awake, alert, obeys commands, Oriented to person, place, time, situation. Respiratory: Airway is patent Trachea midline Respiratory effort is even, unlabored, Respiratory pattern is regular, symmetrical. Vital Signs: 17:16 BP 139 / 76; Pulse 121; Resp 28 S; Temp 99.3(O); Pulse Ox 100% on R/A; Pain 0/10; kc6 17:36 BP 124 / 72; Pulse 114; Resp 25 S; Pulse Ox 100% on R/A; kc6 18:06 BP 137 / 75; Pulse 121; Resp 21 S; Temp 99.9(O); Pulse Ox 99% on R/A; kc6 18:59 BP 90 / 55; Pulse 123; Resp 26 S; Pulse Ox 98% on R/A; kc6 20:12 BP 93 / 61; Pulse 111; Resp 18; Pulse Ox 100% on R/A; kd3 17:16 Pain Scale: Adult kc6 ED Course: 16:59 Patient arrived in ED. cj3 17:00 Jake Barnett MD is Attending Physician. sp3 17:18 Triage completed. kc6 17:18 Arm band placed on. kc6 17:18 Patient has correct armband on for positive identification. Bed in low position. Call [facility] light in reach. Side rails up X2. Adult w/ patient. elementary educator on. Pulse ox on. NIBP on. Door closed. Noise minimized. Lights dimmed. Warm blanket given. Pillow given. Verbal reassurance given. 17:18 Patient maintains SpO2 saturation greater than 95% on room air. kc6 17:36 Initial lab(s) drawn, by me, sent to lab. Inserted saline lock: 18 gauge in right [facility] antecubital area, using aseptic technique. Blood collected. Flushed with 10 mL NS. 17:37 Radha Monique, RN is Primary Nurse. kc6 18:21 CT Chest, Abdomen, Pelvis - W/Contrast In Process Unspecified. EDMS 19:13 Rj Small MD is Hospitalizing Provider. sp3 20:05 COVID-19 Ag + Flu A+B Ag Sent. kd3 20:21 No provider procedures requiring assistance completed. Patient admitted, IV remains in kd3 place. 20:22 Provided Education on: Need for admit . kd3 Administered Medications: 17:30 Drug: NS 0.9% IV 1000 ml IV at 1000 ml once; to be given as a bolus over 60 minutes db Route: IV; Rate: 1000 ml; Site: right antecubital; 18:06 Follow up: Response: No adverse reaction; IV Status: Completed infusion; IV Intake: kc6 1000ml 18:58 Drug: Acetaminophen PO 650 mg PO once Route: Feeding Tube; kc6 Intake: 18:06 IV: 1000ml; Total: 1000ml. kc6 Outcome: 19:13 Decision to Hospitalize by Provider. sp3 20:21 Admitted to Med/surg kd3 20:21 Condition: stable 20:21 Discharge instructions given to patient, Instructed on the need for admit, 20:59 Patient left the ED. kd3 Signatures: Dispatcher [employer] EDMS Jake Barnett MD MD sp3 Monika Jorgensen RN RN kd3 Rdaha Monique RN RN kc6 Angela Washington RN RN Moraima Escalera 3 Corrections: (The following items were deleted from the chart) 19:01 18:59 Pulse 123bpm; Resp 26bpm; Spontaneous; Pulse Ox 98% RA; kc6 kc6
[2024-08-25 20:12] LABS: Influenza A Ag Negative; Influenza B Ag Negative; SARS-CoV-2 Antigen Rapid Res Negative (Negative)
[2024-08-25] MEDS ORDERED: ONDANSETRON 4 MG/2 ML VIAL IV PRN (21:20)
[2024-08-25] MEDS: NA CHLORIDE 0.9% 1,000 ML IV SCH (22:48)
[2024-08-26 00:50] VITALS: O2SAT 100
[2024-08-26 05:00] LABS: Absolute Basophils 0.1 K/uL (0-0.5); Absolute Lymphocytes (CBC) 0.2 K/uL (0.7-4.9); Absolute Monocytes 0.5 K/uL (0.1-1.3); Absolute Neutrophil 8.5 K/uL (1.8-8.0); Basophils % 0.7 % (0-1.3); Eosinophils % 0.5 % (0-4.4); Hematocrit 35.3 % (39.6-49.0); Hemoglobin 11.9 g/dL (13.6-17.9); Lymphocytes % 2.5 % (15.3-44.8); MCHC 33.6 g/dL (32.0-36.0); MCV 98.2 fL (80-100); MPV 10.8 fL (7.6-11.3); Monocytes % 5.5 % (3.3-12.3); Neutrophils % 90.8 % (41.7-73.7); Platelets 95 thou/uL (152-406); Red Cell Distribution Width 14.9 % (12.1-15.2)
[2024-08-26 05:09] LABS: Anion Gap 7.1 mEq/L (5.0-15.0); Potassium 4.1 mEq/L (3.5-5.1)
[2024-08-26 05:40] LABS: Band Neutrophils 54 % (0-1); Blood Morphology Comment NOT SEEN (NOT SEEN); Differential Total Cells Count 100; Eosinophils 1 % (0-3); Lymphocytes 7 % (15-42); Monocytes 6 % (0-10); Platelet Estimate DECR; Segmented Neutrophils 32 % (40-80)
[2024-08-26 08:26] VITALS: TEMP 98.4
[2024-08-26] MEDS: ATORVASTATIN 80 MG TAB FT SCH (08:27)
[2024-08-26 09:53] LABS: STOOL CONSISTENCY Liquid/Semi-Solid
[2024-08-26 09:54] LABS: C.diff Antigen/Toxin Ag neg : Tox neg (NEG : NEG); CDIFF INTERNAL NEG CONTROL White Background (WHITE BKGD)
[2024-08-26 11:23] VITALS: BP 148/72
--- NOTE | 2024-08-26 21:27 | DS ---
Date of Discharge: 08/26/2024 Disposition: Discharged to go home. Physical Examination: HEENT: Unremarkable. Lungs: Bilateral good equal air entry, not in respiratory distress. Presence of basal rales, unchan ged from before. Heart: Sounds normal. Abdomen: Soft. Bowel sounds normal. No guarding, rigidity, tenderness, distention. Extremities: No leg edema. Laboratory Data: Stool for C difficile came back negative. WBC yesterday was 12, hemoglobin 14.9, p latelets 108. Today, WBC 9.3, hemoglobin 11.9, platelets 95, 54% neutrophils. Yesterday chemistry, sodium 137, potassium 4.5, chloride 104, bicarb 29, BUN 32, creatinine 1.07, glucose 138. Liver func tion tests unremarkable. Lipase 126. Today, sodium 139, potassium 4.1, chloride 110, bicarb 26, BUN 29, creatinine 0.81, glucose 110. Discharge Medications And Instructions: 1. Continue all prior home medication. 2. Take Cipro 500 mg 2 times a day per PEG tube for 1 week. 3. Follow up at my office next week. Final Diagnoses: 1. Acute gastroenteritis. 2. Volume depletion. 3. Hypertension. 4. . 5. . 6. . Hospital Course: A 78-year-old male patient admitted to the hospital with acute gastroenteritis. Pl ease see dictated H and P for more information. While the patient was evaluated in the emergency sanju yesterday, he was admitted to the hospital with nausea, vomiting, and diarrhea. The patient has no t had any more vomiting episodes, but had 1 episode of diarrhea after I saw him this morning. Thus, a stool specimen was collected for C difficile and it came back negative. The patient was given IV f luid and this morning, we did start him on his feeding. He normally takes 5 cans a day of feeding fo rmula and I instructed the patient and the patient's that at least for next 24 hours or so I wou ld like him to take 3 cans a day and that will be in divided doses like half can every 3 hours or so. Today, he tolerated 2 such feeding without any problem. Overall, he was feeling not better. Vital signs were stable and he was discharged to go home in stable condition with above-mentioned medicati ons and instructions. Total time spent today 30 minutes. JOHN/MODL Voice ID: [id number] Report ID: [id number]
--- NOTE | 2024-08-26 21:41 | HP ---
Date of Admission: 08/25/2024 Chief Complaint: Nausea, vomiting, diarrhea. History Of Present Illness: Mr. Morales is a pleasant 78-year-old male patient, who lives at home with h is , came into emergency room with above-mentioned complaints. The patient's got sick with nausea, vomiting, diarrhea that started as of Friday, which is day before yesterday and now the patie nt started to have this symptoms today, so he was brought into emergency room and after he was amparoa tiffanie, I was contacted requesting admission to the hospital. I saw him in the emergency room this even ing and his was with him at bedside. He denies any abdominal pain. Physical Examination: Vital Signs: Temperature 99.3, pulse 121, respiratory rate 28, blood pressure was 139/76, oxygen sat uration 100%. Height 5 feet 7 inches, weight 128 pounds. When I saw him in the emergency room, his blood pressure was low at 90/55. General: Awake, alert, oriented, not in distress. HEENT: Head atraumatic, normocephalic. Conjunctivae nonerythematous. Sclerae white. Mouth, no thr ush or edema noted. Ears/Nose, no mass, lesion, discharge noted. Neck: Supple. No JVD, lymph nodes, bruit, thyromegaly noted. Lungs: Lungs examination shows bilateral good equal air entry. Clear to auscultation except presenc e of rales noted in both lung bases, which is chronic finding due to pulmonary fibrosis. Heart: Normal heart sounds, no murmur or gallop. Abdomen: Soft, bowel sounds normal. No guarding, rigidity, tenderness, mass, hepatosplenomegaly, dis tention, or bruit noted. Extremities: No leg edema. No calf tenderness. Skin: No rash, ulcer, cellulitis. Lymphatics: No lymph node enlargement in neck, supraclavicular, infraclavicular region. Neuro: No focal neurological deficit. Chest: Unremarkable. External Genitalia: Deferred. Rectal: Deferred. Laboratory Data: Sodium 137, potassium 4.5, chloride 104, bicarb 29, BUN 32, creatinine 1.07, glucos e 138, lactic acid 1.6. Liver function tests unremarkable. Lipase 126. Urinalysis normal. Influen za A and B, and COVID-19 test negative. WBC 12, hemoglobin 14.9, platelets 108. CAT scan of the [address], abdomen, pelvis shows moderate fluid, distended stomach, and distal esophagus with gastrostomy tu be in place. Fibrotic changes in the lung, no other acute findings. Impression: 1. Acute gastroenteritis. 2. Volume depletion. 3. Thrombocytopenia. 4. Pulmonary fibrosis. 5. Hypothyroidism. 6. Mixed hyperlipidemia. 7. Hypertension. 8. Chronic respiratory failure with hypoxia. 9. Coronary artery disease. 10. Impaired fasting glucose. 11. Benign prostatic hypertrophy. 12. Carotid artery stenosis. 13. Tongue cancer. Plan: We will go ahead and admit the patient to hospital for observation. The patient received IV f luid in the emergency room prior to my arrival and when I saw him, he was still having low blood pres sure, so another 1 L bag of IV fluid was ordered to be given at 100 cc/hour. We will repeat blood wo rk tomorrow morning. We will keep him in hospital overnight. I will evaluate him in the morning. S tool for C diff was ordered and depending on his condition overnight, we will decide tomorrow if he c an possibly go home or not. The patient takes all his medication through PEG tube and gets his nutri tion through PEG tube, so he does not eat or drink anything by mouth. Does not take any medication b y mouth and will continue this while in the hospital. His blood pressure medication amlodipine will be continued. Monitor blood pressure, if necessary adjust medication. We will continue his levothyr oxine per order for hypothyroidism and no need for further intervention on him. Overnight, we will n ot use any PEG tube feeding, but starting tomorrow depending on his condition, we will allow him to s tart his feeding. Total time spent 65 minutes and this includes review of emergency room visit record, communication wi th emergency room physician, review of last hospital admission record from 07/11/2024, and performing today's evaluation and management. JOHN/MODL Voice ID: [id number]
[2024-08-27] MEDS ORDERED: LEVOTHYROXINE SOD 0.075 MG TAB FT SCH (06:00)
--- NOTE | 2024-08-30 12:17 | EKG ---
Test Date: 2024-08-25 Test Time: 17:28:24 Books Salesperson: MALU MEASUREMENT RESULTS: Intervals: Rate: 117 IN: 96 QRSD: 76 QT: 454 QTc: 633 [place]: P: IN: 96 QRS: -2 T: 27 INTERPRETIVE STATEMENTS: Sinus tachycardia with short IN Inferior infarct, age undetermined Anterior infarct, age undetermined Abnormal ECG Compared to ECG 07/11/2024 03:56:59 Short IN interval now present Sinus rhythm no longer present Myocardial infarct finding still present Electronically Signed On 08-30-24 12:06:30 CDT by Frederick Orona
== END 2024-08-26 12:54 | disposition home or self-care (01) ==
LOC: ER 16:48 → ERHOLD 19:11 → 2ND 20:21
PROVIDERS: ADMIT Internal Medicine; ATTEND Internal Medicine
DX: K52.9 Noninfective gastroenteritis and colitis, unspecified (principal); R11.2 Nausea with vomiting, unspecified; E86.9 Volume depletion, unspecified; D69.6 Thrombocytopenia, unspecified; E03.9 Hypothyroidism, unspecified; E78.2 Mixed hyperlipidemia; I10 Essential (primary) hypertension; J96.11 Chronic respiratory failure with hypoxia; I25.10 Atherosclerotic heart disease of native coronary artery without angina pectoris; R73.01 Impaired fasting glucose; N40.0 Benign prostatic hyperplasia without lower urinary tract symptoms; I65.29 Occlusion and stenosis of unspecified carotid artery; C02.9 Malignant neoplasm of tongue, unspecified; Z11.52 Encounter for screening for COVID-19
CPT/HCPCS: 36415; 71260; 74177; 80048; 80076; 81001; 82947; 83605; 83690; 83735; 83880; 84484; 85025; 85610; 87324; 87428; 93005; 96360; 99285; G0378; J7030; Q9967

== ENCOUNTER 2024-08-26 19:35 | Inpatient (IN) | payer OTHER ==
[2024-08-26 20:45] LABS: Absolute Lymphocytes (CBC) 0.5 K/uL (0.7-4.9); Absolute Monocytes 0.4 K/uL (0.1-1.3); Absolute Neutrophil 3.8 K/uL (1.8-8.0); Basophils % 0.4 % (0-1.3); Eosinophils % 0.3 % (0-4.4); Hematocrit 38.9 % (39.6-49.0); Hemoglobin 13.1 g/dL (13.6-17.9); Lymphocytes % 10.5 % (15.3-44.8); MCH 32.6 pg (27.0-35.0); MCHC 33.7 g/dL (32.0-36.0); MCV 96.8 fL (80-100); MPV 10.3 fL (7.6-11.3); Monocytes % 8.1 % (3.3-12.3); Neutrophils % 80.7 % (41.7-73.7); Platelets 97 thou/uL (152-406); RBC Red Blood Cell Count 4.02 M/uL (4.33-5.43)
[2024-08-26] MEDS ORDERED: ALBUTEROL 2.5 MG/3 ML NEB SOL ONE (20:45)
[2024-08-26] MEDS ORDERED: IPRATROPIUM BROM 0.5MG/2.5ML ONE (20:46)
[2024-08-26 20:52] LABS: PT Prothrombin Time 13.2 SECONDS (10-13.0); Protime INR 1.17
--- NOTE | 2024-08-26 20:59 | RAD REPORT ---
Procedure: Chest Single View HISTORY: Cough COMPARISON: July 2024 FINDINGS: Moderate bilateral pulmonary opacities unchanged. Mild opacity mid left lung. No significant pleural effusion noted. The heart is mildly enlarged. Post surgical. Involve the chest IMPRESSION: Moderate pulmonary opacities bilaterally unchanged probably pulmonary fibrosis. Mild opacity mid left lung may represent mild pneumonia/pneumonitis
[2024-08-26 21:03] LABS: Albumin 2.8 g/dL (3.4-5.0); Albumin/Globulin Ratio 0.7 (1.1-1.8); Anion Gap 5.9 mEq/L (5.0-15.0); Bilirubin Direct 0.2 mg/dL (0-0.2); Bilirubin Indirect, Calculated 0.6 mg/dL (0.2-0.8); Bilirubin Total 0.8 mg/dL (0.2-1.0); C-Reactive Protein 80.7 mg/L (<3.00); Globulin 4.3 g/dL (2.3-3.5); Magnesium 1.8 mg/dL (1.6-2.4); Potassium 3.9 mEq/L (3.5-5.1); Protein, Total 7.1 g/dL (6.4-8.2); Troponin High Sensitivity 13.4 pg/mL (<58.9)
[2024-08-26] MEDS ORDERED: CEFTRIAXONE 1000 MG/VIAL ONE (23:59)
[2024-08-26] MEDS ORDERED: METRONIDAZOLE 500mg IVPB 500 MG/100 ML BAG IV ONE (23:59)
[2024-08-26] MEDS ORDERED: NA CHLORIDE 0.9% 50 ML ONE (23:59)
--- NOTE | 2024-08-27 00:27 | EDPHYS ---
Physician Documentation [facility] Name: Thad Morales Age: 78 yrs Sex: Male : 1945 Arrival Date: 08/26/2024 Time: 19:35 Bed 14 Private MD: ED Physician Doug Gold HPI: 08/26 20:02 This 78 yrs old Male presents to ER via Unassigned with complaints of sp4 Congestion, low O2. 08/27 00:54 PMH - Impression: 1. Acute gastroenteritis. 2. Volume depletion. 3. Thrombocytopenia. sp4 4. Pulmonary fibrosis. 5. Hypothyroidism. 6. Mixed hyperlipidemia. 7. Hypertension. 8. Chronic respiratory failure with hypoxia. 9. Coronary artery disease. 10. Impaired fasting glucose. 11. Benign prostatic hypertrophy. 12. Carotid artery stenosis. 13. Tongue cancer.. 16:25 78-year-old male presents with dyspnea and desaturation associated with congestion.. sp4 Historical: - Allergies: 08/26 20:05 No Known Allergies; br2 - PMHx: 20:05 Hypercholesterolemia; Hypothyroidism; Myocardial infarction; Pneumonia; throat cancer; br2 - PSHx: 20:05 HEART BYPASS 2017; br2 - Immunization history:: Adult Immunizations up to date. - Infectious Disease History:: Denies. - Social history:: Smoking status: Patient denies any tobacco usage or history of. Patient uses Patient/guardian denies using alcohol, street drugs. - Family history:: not pertinent. ROS: 08/27 16:25 Constitutional: Negative for fever, chills, and weight loss, dyspnea, positive cough, sp4 positive congestion, positive for low oxygenation All other systems are negative, Exam: 16:25 Constitutional: This is a well developed, well nourished patient who is awake, alert sp4 and is frail elderly male arrives in wheelchair. Dyspneic on arrival. Head/Face: Normocephalic, atraumatic. Eyes: Pupils equal round and reactive to light, extra-ocular motions intact. Lids and lashes normal. Conjunctiva and sclera are not injected. Cornea within normal limits. Periorbital areas with no swelling, redness, or edema. ENT: Nares patent. No nasal discharge, no septal abnormalities noted. Tympanic membranes are normal and external auditory canals are clear. Oropharynx with no redness, swelling, or masses, exudates, or evidence of obstruction, uvula midline. Mucous membranes moist. Neck: Trachea midline, no thyromegaly or masses palpated, and no cervical lymphadenopathy. Supple, full range of motion without nuchal rigidity, or vertebral point tenderness. Chest/axilla: Normal chest wall appearance and motion. Nontender with no deformity. No lesions are appreciated. Cardiovascular: Regular rate and rhythm with a normal S1 and S2. No gallops, murmurs, or rubs. Normal PMI, no JVD. No pulse deficits. Respiratory: Lungs have equal breath sounds bilaterally, clear to auscultation and percussion. No rales, rhonchi or wheezes noted. No increased work of breathing, no retractions or nasal flaring. Abdomen/GI: Soft, with normal bowel sounds. No distension or tympany. No guarding or rebound. No evidence of tenderness throughout. Back: No spinal tenderness. No costovertebral tenderness. Skin: Warm, dry with normal turgor. Normal color with no rashes, no lesions, and no evidence of cellulitis. MS/ Extremity: Pulses equal, no cyanosis. Neurovascular intact. Full, normal range of motion. Neuro: Awake and alert, GCS 15, oriented to person, place, time, and situation. Cranial nerves II-XII grossly intact. Motor strength 5/5 in all extremities. Sensory grossly intact. Psych: Awake, alert, with orientation to person, place and time. Behavior, mood, and affect are within normal limits 16:28 ECG was reviewed by the Attending Physician. EKG 08/26/2024, 1999 sp4 Vital Signs: 08/26 20:00 BP 103 / 63; Pulse 129; Resp 22; Temp 98.8(TE); Pulse Ox 88% on 2 lpm NC; Weight 56.7 br2 kg; Height 5 ft. 7 in. ; 21:15 BP 106 / 60; Pulse 116; Resp 19; Pulse Ox 97% on 3 lpm NC; rg5 08/27 00:40 BP 122 / 69; Pulse 101; Resp 20; Pulse Ox 96% on 3 lpm NC; Pain 0/10; jj7 08/26 20:00 Body Mass Index 19.58 (56.70 kg, 170.18 cm) br2 08/27 00:40 Pain Scale: Adult jj7 Omi Coma Score: 16:25 Eye Response: spontaneous(4). Motor Response: obeys commands(6). Verbal Response: sp4 oriented(5). Total: 15. MDM: 08/26 20:00 Differential Diagnosis: Obstructed Airway Bronchitis Influenza Upper Respiratory sp4 Infection Viral Syndrome Pneumonia. Consideration of Admission/Observation Patient was admitted/placed on observation. Escalation of care including admission/observation considered. Management of patient was discussed with the following: Primary Care Provider: Geovanny LEVIN . 20:04 Medical Screening Exam initiated sp4 20:07 ED course: CT report from yesterday - COMBINED: MUSCULOSKELETAL: No acute or suspicious sp4 osseous abnormality. Sternotomy. ADDITIONAL FINDINGS: None. IMPRESSION: Moderate fluid distended stomach and distal esophagus with gastrostomy tube in place. Though no overt evidence of acute aspiration, nevertheless the patient may be at risk for aspiration. Ancillary findings as noted above. . 08/27 16:28 Data reviewed: vital signs, nurses notes, old medical records, lab test result(s), EKG, sp4 radiologic studies, plain films. 16:31 ED course: HISTORY: Cough COMPARISON: July 2024 FINDINGS: Moderate bilateral sp4 pulmonary opacities unchanged. Mild opacity mid left lung. No significant pleural effusion noted. The heart is mildly enlarged. Post surgical. Involve the chest IMPRESSION: Moderate pulmonary opacities bilaterally unchanged probably pulmonary fibrosis. Mild opacity mid left lung may represent mild pneumonia/pneumonitis. . 08/26 20:18 Order name: Basic Metabolic Panel; Complete Time: 23:51 sp4 08/26 20:18 Order name: CBC with Diff; Complete Time: 23:51 sp4 08/26 20:18 Order name: LFT's; Complete Time: 23:51 sp4 08/26 20:18 Order name: Magnesium; Complete Time: 23:51 sp4 08/26 20:18 Order name: NT PRO-BNP; Complete Time: 23:51 sp4 08/26 20:18 Order name: PT-INR; Complete Time: 23:51 sp4 08/26 20:18 Order name: Troponin HS; Complete Time: 23:51 sp4 08/26 20:19 Order name: Blood Culture Adult (2) sp4 08/26 20:19 Order name: Lactate w/ 2H reflex if indic.; Complete Time: 23:51 sp4 08/26 20:19 Order name: CRP; Complete Time: 23:51 sp4 08/26 21:08 Order name: Ghost Lactate-NO COLLECT Timer; Complete Time: 23:51 EDMS 08/27 00:23 Order name: Lactate Sepsis 2 HR Follow-up; Complete Time: 00:31 EDMS 08/26 20:18 Order name: XRAY Chest (1 view); Complete Time: 23:51 sp4 08/27 00:59 Order name: CONS Physician Consult EDDC 08/26 20:18 Order name: Cardiac monitoring; Complete Time: 20:37 sp4 08/26 20:18 Order name: EKG - Nurse/Tech; Complete Time: 20:51 sp4 08/26 20:18 Order name: IV Saline Lock; Complete Time: 20:37 sp4 08/26 20:18 Order name: Labs collected and sent; Complete Time: 20:37 sp4 08/26 20:18 Order name: O2 Per Protocol; Complete Time: 20:37 sp4 08/26 20:18 Order name: O2 Sat Monitoring; Complete Time: 20:37 sp4 EC/20 20:00 Rate is 110 beats/min. Rhythm is regular, Sinus tachycardia. QRS Gaston is Normal. MA sp4 interval is normal. QRS interval is normal. QT interval is normal. T waves are Normal. No ST changes noted. Clinical impression: No evidence of ischemia. Interpreted by me. Reviewed by me. Administered Medications: 20:51 Drug: Albuterol Inhalation 2.5 mg Inhalation once Route: Inhalation; rg5 20:51 Drug: Ipratropium Inhalation Aerosol 0.5 mg Inhalation once Route: Inhalation; rg5 23:00 Follow up: Response: No adverse reaction ha1 08/27 00:06 Drug: Rocephin - Rocephin (cefTRIAXone) IVPB 1 grams IVPB once over 30 mins; (mix in 50 rg5 mL NS) Route: IVPB; Infused Over: 30 mins; Site: right antecubital; 01:55 Follow up: Response: No adverse reaction; IV Status: Completed infusion ha1 00:06 Drug: metroNIDAZOLE IVPB 500 mg 100 ml IVPB at 200 ml/hr once over 30 mins Volume: 100 rg5 ml; Route: IVPB; Rate: 200 ml/hr; Infused Over: 30 mins; Site: right antecubital; 02:20 Follow up: Response: No adverse reaction; IV Status: Completed infusion ha1 Disposition Summary: 08/27/24 00:26 Hospitalization Ordered Notes: Hospitalization Status: Inpatient Admission sp4 Provider: Rj Small sp4 Condition: Stable sp4 Problem: new sp4 Symptoms: have improved sp4 Bed/Room Type: Standard sp4 Location: Telemetry/MedSurg (Inpatient)(08/27/24 04:45) Room Assignment: [facility](08/27/24 04:45) Diagnosis - Pneumonia, unspecified organism sp4 - Chronic pulmonary fibrosis, left upper lung acute pneumonia. sp4 Forms: - Medication Reconciliation Form sp4 - SBAR form sp4 - Leadership Thank You Letter sp4 Signatures: Dispatcher [employer] EDLetitia Lyn RN RN Serena Arce rv1 Doug Gold MD MD sp4 Pollo Camacho RN RN rg5 Chelsey Martin RN RN br2 Janny Fagan RN 1 Corrections: (The following items were deleted from the chart) 01:10 00:26 Telemetry/MedSurg (Inpatient) sp4 rv1 01:10 00:26 sp4 rv1 04:45 01:10 [facility] ER HOLD rv1 kl 04:45 01:10 ERHOLD- rv1 kl
--- NOTE | 2024-08-27 00:27 | ER ---
Nurse's Notes [facility] Name: Thad Morales Age: 78 yrs Sex: Male : 1945 Arrival Date: 08/26/2024 Time: 19:35 Bed 14 Private MD: Diagnosis: Pneumonia, unspecified organism;Chronic pulmonary fibrosis, left upper lung acute pneumonia. Presentation: 08/26 20:00 Chief complaint: Patient states: PT DISCHARGED THIS MORNING FROM [facility]S. PT WAS br2 ADMITTED FOR A "STOMACH BUG". PT ARRIVES THIS EVENING DUE TO ELEVATED HR AND DECREASED 02 SATS \\T\\ 2L N/C 88% DURING TRIAGE. Coronavirus screen: Client denies travel out of the [place] in the last 14 days. Ebola Screen: Patient denies exposure to infectious person. Initial Sepsis Screen: Does the patient meet any 2 criteria? HR > 90 bpm. Does the patient have a suspected source of infection? No. Patient's initial sepsis screen is negative. Risk Assessment: Do you want to hurt yourself or someone else? Patient reports no desire to harm self or others. Onset of symptoms was August 26, 2024 at 15:30. 20:00 Method Of Arrival: Wheelchair br2 20:00 Acuity: ADARSH 3 br2 Historical: - Allergies: 20:05 No Known Allergies; br2 - PMHx: 20:05 Hypercholesterolemia; Hypothyroidism; Myocardial infarction; Pneumonia; throat cancer; br2 - PSHx: 20:05 HEART BYPASS 2017; br2 - Immunization history:: Adult Immunizations up to date. - Infectious Disease History:: Denies. - Social history:: Smoking status: Patient denies any tobacco usage or history of. Patient uses Patient/guardian denies using alcohol, street drugs. - Family history:: not pertinent. Screenin/21 00:40 [facility] ED Fall Risk Assessment (Adult) History of falling in the last 3 months, jj7 including since admission No falls in past 3 months (0 pts) Confusion or Disorientation No (0 pts) Intoxicated or Sedated No (0 pts) Impaired Gait No (0 pts) Mobility Assist Device Used No (0 pt) Altered Elimination No (0 pt) Score/Fall Risk Level 0 - 2 = Low Risk Oriented to surroundings, Maintained a safe environment, Educated pt \\T\\ family on fall prevention, incl call for assistance when getting out of bed, Assessed \\T\\ reinforced patient's understanding of fall precautions. Abuse screen: Denies threats or abuse. Nutritional screening: No deficits noted. Tuberculosis screening: No symptoms or risk factors identified. Assessment: 00:40 Reassessment: ASSUMED CARE OF PT. PT LYING IN BED. NO PAIN R DISTRESS. VS STABLE. CALL j RUSSELL IN REACH. FAMILY AT BEDSIDE. General: Appears in no apparent distress. comfortable, Behavior is calm, cooperative, appropriate for age. Pain: Denies pain. Cardiovascular: Capillary refill < 3 seconds Patient's skin is warm and dry. Rhythm is sinus tachycardia. Respiratory: Airway is patent Trachea midline Respiratory effort is even, unlabored, Respiratory pattern is regular, symmetrical. Vital Signs: 08/26 20:00 BP 103 / 63; Pulse 129; Resp 22; Temp 98.8(TE); Pulse Ox 88% on 2 lpm NC; Weight 56.7 br2 kg; Height 5 ft. 7 in. ; 21:15 BP 106 / 60; Pulse 116; Resp 19; Pulse Ox 97% on 3 lpm NC; rg5 08/27 00:40 BP 122 / 69; Pulse 101; Resp 20; Pulse Ox 96% on 3 lpm NC; Pain 0/10; jj7 08/26 20:00 Body Mass Index 19.58 (56.70 kg, 170.18 cm) br2 08/27 00:40 Pain Scale: Adult jj7 Omi Coma Score: 16:25 Eye Response: spontaneous(4). Motor Response: obeys commands(6). Verbal Response: sp4 oriented(5). Total: 15. ED Course: 08/26 19:37 Patient arrived in ED. im 20:01 Doug Gold MD is Attending Physician. sp4 20:05 Triage completed. br2 20:37 Inserted saline lock: 20 gauge in right antecubital area, using aseptic technique. af3 Blood collected. Flushed with 10 mL NS. 20:43 XRAY Chest (1 view) In Process Unspecified. EDMS 20:50 Pollo Camacho RN is Primary Nurse. rg5 08/27 00:25 Rj Small MD is Hospitalizing Provider. sp4 00:40 Patient has correct armband on for positive identification. Placed in gown. Bed in low jj7 position. Call light in reach. Side rails up X 1. Adult w/ patient. Provided Education on: USE OF CALL RUSSELL. Client placed on continuous cardiac and pulse oximetry monitoring. NIBP monitoring applied. court recording monitor on. Pulse ox on. Warm blanket given. 05:53 No provider procedures requiring assistance completed. Patient admitted, IV remains in ha1 place. Administered Medications: 08/26 20:51 Drug: Albuterol Inhalation 2.5 mg Inhalation once Route: Inhalation; rg5 20:51 Drug: Ipratropium Inhalation Aerosol 0.5 mg Inhalation once Route: Inhalation; rg5 23:00 Follow up: Response: No adverse reaction ha1 08/27 00:06 Drug: Rocephin - Rocephin (cefTRIAXone) IVPB 1 grams IVPB once over 30 mins; (mix in 50 rg5 mL NS) Route: IVPB; Infused Over: 30 mins; Site: right antecubital; 01:55 Follow up: Response: No adverse reaction; IV Status: Completed infusion 1 00:06 Drug: metroNIDAZOLE IVPB 500 mg 100 ml IVPB at 200 ml/hr once over 30 mins Volume: 100 rg5 ml; Route: IVPB; Rate: 200 ml/hr; Infused Over: 30 mins; Site: right antecubital; 02:20 Follow up: Response: No adverse reaction; IV Status: Completed infusion 1 Medication: 00:40 VIS not applicable for this client. jj7 Outcome: 00:26 Decision to Hospitalize by Provider. sp4 05:45 Admitted to Tele ha1 05:45 Condition: stable 05:45 Instructed on the need for admit, Demonstrated understanding of instructions, 05:54 Admitted to Tele accompanied by tech, via stretcher, room 430, with chart, ha1 05:55 Patient left the ED. ha1 Signatures: Dispatcher [employer] EDMS Janny Fagan RN RN ha1 Subhash Puri RN RN jj7 Doug Gold MD MD sp4 Caitlin Martinez Rommel, RN RN rg5 Chelsey Martin RN RN br2 Alaina Murcia3 Corrections: (The following items were deleted from the chart) 05:55 05:45 Instructed on the need for admit, Demonstrated understanding of instructions, ha1 ha1
[2024-08-27] MEDS ORDERED: ACETAMINOPHEN 325 MG TABLET PO PRN (05:57)
[2024-08-27] MEDS: ALBUTEROL 2.5 MG/3 ML NEB SOL NEB SCH (05:57)
[2024-08-27] MEDS ORDERED: ONDANSETRON 4 MG/2 ML VIAL IV PRN (05:57)
[2024-08-27] MEDS ORDERED: HYDROCODONE/APAP 5/325 MG TAB PO PRN (05:57)
[2024-08-27] MEDS ORDERED: SODIUM CHLORIDE 0.9% 10ML INJ IV PRN (07:19)
[2024-08-27] MEDS: CIPROFLOXACIN 400mg IV 400 MG/200 ML BAG IV SCH (09:30)
[2024-08-27] MEDS: PANTOPRAZOLE 40 MG INJ IVP SCH (09:30)
[2024-08-27] MEDS: ATORVASTATIN 80 MG TAB FT SCH (09:30)
[2024-08-27] MEDS: ASPIRIN 81 MG CHEWABLE TABLET FT SCH (09:30)
[2024-08-27] MEDS: AMLODIPINE 2.5 MG TAB FT SCH (09:30)
--- NOTE | 2024-08-27 09:35 | P.CNS ---
Date of Consult: 08/27/24 Reason for Consult: Interstitial pneumonia Chief Complaint: Diarrhea cough History of Present Illness: Patient is 78 years of age with a history of pulmonary fibrosis DC'd home developed some diarrhea has been sick for about 5 days has some cough was also sick came here to the hospital hypoxic bilateral's significant interstitial lung disease patient has oxygen at home was started last time [place] any fever chills has intermittent cough no chest pain Allergies corn Allergy (Verified 02/26/23 15:05) Nausea/Vomiting tomato Allergy (Verified 02/26/23 15:05) Nausea/Vomiting Home Medications: Amlodipine Besylate 2.5 mg PO DAILY 02/13/21 Aspirin [Aspirin EC 81 MG] 81 mg PO DAILY 02/13/21 Atorvastatin Calcium [Lipitor] 80 mg PO DAILY 02/13/21 L.acidoph,Paracasei, B.lactis [Probiotic] 1 each PO DAILY 02/13/21 Levothyroxine [Synthroid] 75 mcg PO [id number] 02/13/21 Pantoprazole [Protonix Tab] 40 mg PO DAILY 02/13/21 - Past Medical/Surgical History Diabetic: No -: [place] -: Pneumonia -: Throat Cancer -: 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 -: hypertension -: Heart Bypass 2016 - Social History Alcohol use: No CD- Drugs: No Caffeine use: No Place of Residence: Home Review of Systems 10-point ROS is otherwise unremarkable General: Weakness Respiratory: Cough, Shortness of Breath Physical Examination Temp Pulse Resp BP Pulse Ox 98.3 F 89 16 113/67 94 08/27/24 08:00 08/27/24 09:30 08/27/24 08:00 08/27/24 09:30 08/27/24 08:00 General: Alert, Oriented x3 Respiratory: Crackles/rales Cardiovascular: No edema (Lateral), Regular rate/rhythm, Normal S1 S2 Laboratory Data (last 24 hrs) 08/26/24 08/26/24 08/26/24 20:33 20:33 20:33 WBC 4.70 Hgb 13.1 L D Hct 38.9 L Plt Count 97 L PT 13.2 H INR 1.17 Sodium 136 Potassium 3.9 BUN 25 H Creatinine 0.92 Glucose 114 H Magnesium 1.8 Total Bilirubin 0.8 AST 44 H ALT 39 Alkaline Phosphatase 71 D - Problems (1) Acute exacerbation of idiopathic pulmonary fibrosis Current Visit: Yes Status: Acute Plan: Patient is 78 years of age suspect he has underlying significant pulmonary fibrosis admitted with an exacerbation denies any fever or chills some diarrhea recently able to walk half a mile with oxygen labs chemistries reviewed white count is normal patient is abdominal CT scan reviewed he does have bibasilar changes looks like nonspecific interstitial pneumonitis not have any subpleural cystic changes recommend starting him on some prednisone oxygenation satisfactory patient has mild diastolic function on recent echocardiogram
[2024-08-27 09:58] LABS: Specific Gravity 1.024 (1.005-1.030); Sqamous Epithelial <5 /HPF (None Seen); Urine Bacteria None Seen /HPF (<20); Urine Bilirubin NEGATIVE (Negative); Urine Blood Negative (Negative); Urine Clarity Clear (Clear); Urine Color Yellow (Yellow); Urine Culture Reflex Order NOT NEEDED; Urine Glucose NEGATIVE (Negative); Urine Ketones NEGATIVE (Negative); Urine Microscopic Reflex YN ORDER UMIC; Urine Mucus Slight /HPF (None Seen); Urine Nitrite NEGATIVE (Negative); Urine Protein 1+ (Negative); Urine Urobilinogen Normal (Normal); Urine WBC <5 /HPF (<5); Urine pH 6.5 (5.0-7.0)
--- NOTE | 2024-08-27 10:17 | HP ---
Date of Admission: 08/27/2024 Chief Complaint: Cough, congestion, and low oxygen level. History Of Present Illness: This is a 78-year-old male patient who was admitted to [facility] yesterday with acute gastroenteritis and was discharged to go home in stable condition yesterday. His stool for C difficile came back negative. He was tolerating his diet very well, did have 1 gudelia l movement yesterday morning, which stool specimen was collected which was negative for C diff. The patient tolerated his PEG tube feeding very well and was discharged to go home with Cipro 500 mg 2 ti mes a day to be taken for 1 week. After he went home sometime in the evening time, [facility] because of cough, congestion, coughing up some green-colored mucus and his oxygen level dropped into range of 80s as reported. He is on oxygen at 2 L/minute nasal cannula at home for his chronic respiratory failure, which he has been using it. With this, he was brought back to [facility] room, and after he was evaluated, he was admitted to the hospital with pneumonia. The patient has history of dysphagia, and as of June or July of this year, he has a PEG tube and is using that entirely for his nutrition and medications and does not eat or drink anything by mouth. With th is history, I am suspecting that he probably has aspiration pneumonia again requiring this hospital a dmission. When I saw him this morning, he denied any other complaints. Physical Examination: Vital Signs: This morning, vital signs temperature 98.5, pulse 91, respiratory rate 18, blood pressu re 101/57, oxygen saturation 93% on 3 L nasal cannula oxygen. Height 5 feet 7 inches, weight 124 alex nds. General: Awake, alert, oriented, not in distress. HEENT: Head atraumatic, normocephalic. Conjunctivae nonerythematous. Sclerae white. Mouth, no thr ush or edema noted. Ears/Nose, no mass, lesion, discharge noted. Neck: Supple. No JVD, lymph nodes, bruit, thyromegaly noted. Lungs: Presence of rales noted in both lower lung irvin, little more on the left side than the righ t side, compared to before. Not using any accessory muscles of respiration. Heart: Normal heart sounds, no murmur or gallop. Abdomen: Shows presence of PEG tube in the upper anterior abdominal wall. PEG tube insertion site a ppears normal. Abdomen is soft. Bowel sounds normal. No guarding, rigidity, tenderness, distention . Extremities: No leg edema. No calf tenderness. Skin: No rash, ulcer, cellulitis. Lymphatics: No lymph node enlargement in neck, supraclavicular, infraclavicular region. Neuro: No focal neurological deficit. Chest: Unremarkable. External Genitalia: Deferred. Rectal: Deferred. Laboratory Data: WBC 4.7, hemoglobin 13.1, platelets 97. Sodium 136, potassium 3.9, chloride 107, b icarb 27, BUN 25, creatinine 0.92, glucose 114. Lactic acid 3.1. Repeat lactic acid 2.2. Liver fun ction tests unremarkable. Troponin 13.4. ProBNP 1301. Chest x-ray shows bilateral fibrotic changes with mild opacity in the left lung indicating pneumonia. Impression: 1. Aspiration pneumonia. 2. Chronic respiratory failure with hypoxia, with acute exacerbation. 3. Lactic acidosis. 4. Rule out sepsis. 5. Thrombocytopenia. 6. Hypothyroidism. 7. Mixed hyperlipidemia. 8. Hypertension. 9. Coronary artery disease. 10. Impaired fasting glucose. 11. Benign prostatic hypertrophy. 12. Carotid artery stenosis. 13. Tongue cancer. Plan: Admit patient to hospital for further evaluation of this problem. The patient is appropriate for inpatient and is expected to spend 2 midnights in the hospital. We will go ahead and give antibi otic, it will be Zosyn and Cipro. The patient recently had acute gastroenteritis and Cipro was presc ribed yesterday, which he took 1 dose yesterday after he went home and we will continue that. His ga stroenteritis symptoms have resolved. Yesterday, he was able to tolerate 3 cans of his PEG tube feed ing and today will give 4 cans, and if he tolerates that, then starting tomorrow she will resume its normal feeding of 5 cans a day. Ambulation was encouraged. For hypertension, we will continue his amlodipine 2.5 mg daily, hold if systolic blood pressure less than 120. For hyperlipidemia, cont inue his statin therapy. No need for further intervention. For hypothyroidism, continue levothyroxi ne per order. No need for further intervention. Interstitial fibrosis, will not require any further intervention. Thrombocytopenia is also stable, will not require any intervention except monitoring. I will see him tomorrow for followup. Sputum Gram stain and culture was ordered. Total time spent 60 minutes including review of emergency room visit record, communication with ER ph ysician, review of last hospital admission record from day before yesterday, the yesterday, and perfo rming today's evaluation and management. JOHN/MODL Voice ID: [id number]
[2024-08-27] MEDS: PIPER TAZO 3.375 GM in NA CHLORIDE 0.9% 100 ML IV SCH (10:39)
[2024-08-27] MEDS: predniSONE 20 MG TAB PO SCH (10:39)
[2024-08-28] MEDS: LEVOTHYROXINE SOD 0.075 MG TAB FT SCH (06:22)
[2024-08-28 06:38] LABS: Anion Gap 8.1 mEq/L (5.0-15.0); Potassium 4.1 mEq/L (3.5-5.1); Troponin High Sensitivity 7.3 pg/mL (<58.9)
[2024-08-28 07:38] VITALS: BMI 20.7
--- NOTE | 2024-08-28 10:44 | P.PN ---
Subjective Date of Service: 08/28/24 Chief Complaint: Hypoxemia Subjective: Improving (Patient is improving doing well denies any cough or phlegm) Review of Systems General: Weakness Respiratory: Shortness of Breath Physical Examination - Vital Signs Temperature: 97.6 F Blood Pressure: 98/58 Pulse: 80 Respirations: 16 Pulse Ox (%): 97 - Physical Exam General: Alert, Oriented x3 Respiratory: Crackles/rales Cardiovascular: No edema, Regular rate/rhythm - Studies Microbiology Data (last 24 hrs): 08/26/24 20:15 Blood - Blood Anaerobic Blood Culture - Final 08/26/24 20:33 Blood - Blood Anaerobic Blood Culture - Final Assessment And Plan - Current Problems (Diagnosis) (1) Acute exacerbation of idiopathic pulmonary fibrosis Current Visit: Yes Status: Acute Plan: Patient admitted with acute exacerbation of pulmonary fibrosis is currently doing better had viral gastroenteritis discharged home on antibiotics and low- dose prednisone 10 mg recommend leaving him on low-dose prednisone will follow him up as an outpatient no evidence of active sepsis
--- NOTE | 2024-08-28 19:32 | PN ---
Date of Progress Note: 08/28/2024 Subjective: The patient was seen this morning for followup. No new complaints, problems reported. He looks a lot better. Feels a lot better. No new complaints, problems reported by him this morning . Objective: Vital Signs: Reviewed. HEENT: Unremarkable. Lungs: Bilateral good equal air entry with presence of rales noted in lower half of both lung irvin , unchanged from yesterday. Not in any respiratory distress. Heart: Sounds normal. Abdomen: Soft. Bowel sounds normal. No guarding, rigidity, tenderness, distention. Extremities: No leg edema. Labs: Sodium 138, potassium 4.1, chloride 107, bicarb 27, BUN 19, creatinine 0.72, glucose 141. Tro ponin 7.3. Impression: 1. Aspiration pneumonia. 2. Acute gastroenteritis. 3. Hypertension. 4. Coronary artery disease. Plan: We will go ahead and continue current antibiotic. Continue oxygen and PEG tube feeding, which is well tolerated by him at this time. Ambulation was encouraged and my plan is to discharge him to go home probably tomorrow. JOHN/MODL Voice ID: [id number] Report ID: [id number]
[2024-08-29 09:12] VITALS: BP 113/67; TEMP 97.9
[2024-08-29 10:39] VITALS: O2SAT 95
--- NOTE | 2024-08-29 19:34 | DS ---
Date of Discharge: 08/29/2024 Disposition: Discharged to go home. Physical Examination: HEENT: Unremarkable. Lungs: Clear to auscultation except presence of rales noted in lower half of both lung irvin, uncha nged from yesterday. The patient is not using any accessory muscles of respiration and when I saw anil sweeney today, he was not using any oxygen and his room air oxygen saturation was 94% at that time. Heart: Sounds normal. No murmur. No gallop. Abdomen: Soft. Bowel sounds normal. No guarding, rigidity, tenderness, or distention. Extremities: No leg edema. Laboratory Data: Upon admission, WBC 4.7, hemoglobin 13.1, platelets 97. Sodium 136, potassium 3.9, chloride 107, bicarb 27, BUN 25, creatinine 0.92, glucose 114. Initial lactic acid 3.1. Repeat lac tic acid 2.2. Liver function tests unremarkable. Initial troponin 13.4, second troponin 9.9, third troponin 11.3. Discharge Medications And Instructions: 1. Continue all prior home medication. 2. Start following new medications: Prednisone 10 mg take 3 tablets per feeding tube daily for 3 day s, then 2 tablets daily for 3 days, then 1 tablet daily for 3 days, then stop. Take it with food. 3. Augmentin 500 mg, take 1 tablet per feeding to 2 times a day for 1 week. 4. Follow up at my office next week on Friday or , which is 09/01/2024 or 09/02/2024. Discharge Diagnoses: 1. Aspiration pneumonia. 2. Chronic respiratory failure with hypoxia, with acute exacerbation. 3. Lactic acidosis. 4. Thrombocytopenia. 5. Hypothyroidism. 6. Mixed hyperlipidemia. 7. Hypertension. 8. Coronary artery disease. 9. Impaired fasting glucose. 10. Benign prostatic hypertrophy. 11. Carotid artery stenosis. 12. Tongue cancer. Hospital Course: This is a 78-year-old pleasant male patient came into emergency room with complaint s of cough, congestion, and hypoxia. Please see dictated H and P for more information. After the lamont carrero was evaluated in the emergency room, he was admitted to the hospital. The patient has pulmonar y fibrosis, but chest x-ray has shown some left lower lobe infiltrate. He was started on Cipro and t ook 1 dose of Cipro for his acute gastroenteritis and ended up in the hospital with this admission an d during this time, we continued his Cipro along with adding Zosyn as we are concerned about aspirati on pneumonia with his history of nausea, vomiting 1 time prior to this admission. Dr. Baires from Pulmonary was consulted and he added some prednisone. The patient has home oxygen that he uses at [facility] and he has not been requiring oxygen use during daytime and initially during this hospitaliza tion, he did require off oxygen during daytime, but now he is back to maintaining his normal oxygen l evel during daytime without any oxygen use, but I have instructed him to continue to use his oxygen a t nighttime and during daytime, to put oxygen on again if his oxygen saturation drops less than 90%. We did talk about following up with network strategist for his pulmonary fibrosis when he is at baseline and has expressed desire to take him to [facility] to see network strategist and I did provid e him with information regarding network strategist at [facility], so will initiate the proce ss of scheduling appointment and by the time he gets appointment in a month or so hopefully, he will be back to his baseline, so he can have better evaluation by network strategist for his pulmonary fibrosis . Total time spent today, 40 minutes. JOHN/MODL Voice ID: [id number] Report ID: [id number]
--- NOTE | 2024-08-30 12:12 | EKG ---
Test Date: 2024-08-26 Test Time: 20:39:31 Wood Filler: ETHAN MEASUREMENT RESULTS: Intervals: Rate: 120 MA: QRSD: 78 QT: 442 QTc: 624 [place]: P: -4 MA: QRS: 10 T: 43 INTERPRETIVE STATEMENTS: Atrial flutter Inferior infarct, age undetermined Abnormal ECG Compared to ECG 08/25/2024 17:28:24 Sinus tachycardia no longer present Short MA interval no longer present Myocardial infarct finding still present Electronically Signed On 08-30-24 12:03:41 CDT by Frederick Orona
== END 2024-08-29 10:50 | disposition home or self-care (01) | DRG 177 ==
LOC: ER 19:35 → ERHOLD 08-27 00:55 → 4TH 08-27 05:27
PROVIDERS: ADMIT Internal Medicine; ATTEND Internal Medicine
DX: J69.0 Pneumonitis due to inhalation of food and vomit (principal); J96.21 Acute and chronic respiratory failure with hypoxia; E87.20 Acidosis, unspecified; J84.112 Idiopathic pulmonary fibrosis; J84.89 Other specified interstitial pulmonary diseases; E78.2 Mixed hyperlipidemia; E03.9 Hypothyroidism, unspecified; D69.6 Thrombocytopenia, unspecified; K52.9 Noninfective gastroenteritis and colitis, unspecified; I65.29 Occlusion and stenosis of unspecified carotid artery; I10 Essential (primary) hypertension; J84.10 Pulmonary fibrosis, unspecified; I25.10 Atherosclerotic heart disease of native coronary artery without angina pectoris; N40.0 Benign prostatic hyperplasia without lower urinary tract symptoms; I25.2 Old myocardial infarction; R73.01 Impaired fasting glucose; Z85.810 Personal history of malignant neoplasm of tongue; Z91.018 Allergy to other foods; Z79.82 Long term (current) use of aspirin; Z79.890 Hormone replacement therapy; Z79.899 Other long term (current) drug therapy
CPT/HCPCS: 36415; 71045; 71260; 74177; 80048; 80076; 81001; 82947; 83605; 83690; 83735; 83880; 84484; 85025; 85610; 86140; 87040; 87070; 87077; 87186; 87205; 87324; 87428; 93005; 94760; 96360; 96365; 96366; 96368; 99285; G0378; J0696; J0744; J2470; J2543; J7030; J7512; J7613; J7644; Q9967

== ENCOUNTER 2024-09-11 06:42 | Emergency (ER) | payer OTHER ==
--- NOTE | 2024-09-11 07:22 | RAD REPORT ---
EXAMINATION: ONE VIEW CHEST XR CLINICAL INDICATION: SOB TECHNIQUE: Frontal chest projection is submitted. Examination is limited by patient positioning and t echnique. COMPARISON: 08/26/2024 FINDINGS: Moderate pulmonary fibrotic changes are present. This appears similar to comparison study. The heart is mildly enlarged. No displaced fractures identified. Sternotomy wires present. IMPRESSION: Stable findings of pulmonary fibrosis.
[2024-09-11 07:25] LABS: PT Prothrombin Time 12.3 SECONDS (10-13.0); Protime INR 1.08
[2024-09-11 07:30] LABS: Absolute Eosinophils 0.3 K/uL (0-0.5); Absolute Lymphocytes (CBC) 0.8 K/uL (0.7-4.9); Absolute Monocytes 0.7 K/uL (0.1-1.3); Absolute Neutrophil 5.1 K/uL (1.8-8.0); Basophils % 0.4 % (0-1.3); Eosinophils % 3.9 % (0-4.4); Hematocrit 33.7 % (39.6-49.0); Hemoglobin 11.5 g/dL (13.6-17.9); Lymphocytes % 11.1 % (15.3-44.8); MCH 32.6 pg (27.0-35.0); MCHC 34.1 g/dL (32.0-36.0); MCV 95.4 fL (80-100); MPV 10.1 fL (7.6-11.3); Monocytes % 10.2 % (3.3-12.3); Neutrophils % 74.4 % (41.7-73.7); Platelets 153 thou/uL (152-406); RBC Red Blood Cell Count 3.53 M/uL (4.33-5.43); Red Cell Distribution Width 15.1 % (12.1-15.2)
[2024-09-11 07:36] LABS: Anion Gap 6.8 mEq/L (5.0-15.0); Magnesium 2.3 mg/dL (1.6-2.4); Potassium 3.8 mEq/L (3.5-5.1); Troponin High Sensitivity 10.5 pg/mL (<58.9)
--- NOTE | 2024-09-11 07:39 | EDPHYS ---
Physician Documentation [facility] Name: Thad Morales Age: 78 yrs Sex: Male : 1945 Arrival Date: 09/11/2024 Time: 06:42 Bed 8 Private MD: ED Physician Jake Barnett HPI: 09/11 06:45 This 78 yrs old Male presents to ER via Unassigned with unknown complaint. ms3 06:45 78-year-old male with past medical history of myocardial infarction, tongue cancer, ms3 hypothyroidism, GERD presents to the emergency department via [facility] after he awoke this morning and his pulse ox showed a reading of 70s. Patient notes the pulse ox was reading 70s and 90s. Patient became anxious due to the reading according to EMS and called for an ambulance. Patient states he is on home oxygen at night.. Historical: - Allergies: 06:43 No Known Allergies; al5 - PMHx: 06:43 Hypercholesterolemia; Hypothyroidism; Myocardial infarction; Pneumonia; throat cancer; al5 - PSHx: 06:43 HEART BYPASS 2017; al5 - Immunization history:: Adult Immunizations up to date. - Infectious Disease History:: Denies. - Social history:: Smoking status: Patient denies any tobacco usage or history of. ROS: 06:45 Constitutional: Negative for fever, and chills. Cardiovascular: Negative for chest ms3 pain, and palpitations. Abdomen/GI: Negative for abdominal pain, nausea, vomiting, diarrhea, and constipation, MS/Extremity: Negative for injury and deformity, Skin: Negative for injury, rash, and discoloration, 06:45 Respiratory: Positive for Pulse ox reading low this morning, Exam: 06:45 Constitutional: This is a well developed, well nourished patient who is awake, alert, ms3 and in no acute distress. Cardiovascular: Regular rate and rhythm with a normal S1 and S2. No gallops, murmurs, or rubs. Normal PMI, no JVD. No pulse deficits. Abdomen/GI: Soft, non-tender, with normal bowel sounds. No distension or tympany. No guarding or rebound. No evidence of tenderness throughout. Skin: Warm, dry with normal turgor. Normal color with no rashes, no lesions, and no evidence of cellulitis. 06:45 Respiratory: the patient does not display signs of respiratory distress, Respirations: normal, Breath sounds: rales, that are moderate, are located in both bases, Vital Signs: 06:43 BP 118 / 61; Pulse 87; Resp 16; Temp 98.2; Pulse Ox 100% on 2 lpm NC; al5 07:06 Weight 55.34 kg; Height 5 ft. 7 in. ; al5 07:29 BP 118 / 56; Pulse 74; Resp 18; Pulse Ox 94% on 2 lpm NC; ph 07:06 Body Mass Index 19.11 (55.34 kg, 170.18 cm) al5 MDM: 06:44 Medical Screening Exam initiated ms3 06:45 Differential diagnosis: Anemia CHF exacerbation, Myocardial Infarction pulmonary edema. ms3 06:49 Transition of care: After a detail discussion of the patient's case, care is ms3 transferred to Jake Barnett MD. 07:36 Data reviewed: vital signs, nurses notes, lab test result(s), EKG, radiologic studies. sp3 ED course: Patient signed out to me by nighttime physician Dr. Wilkins. Patient is a 78-year-old male presents with potentially malfunctioning pulse oxygenation machine. Here patient is stable with normal vital signs and normal pulse oxygenation on room air. Patient sees Dr. Small as PCP who is also in the ED who has seen patient as well. He agrees that if workup negative we will safely discharge patient home.. 09/11 06:44 Order name: Basic Metabolic Panel; Complete Time: 07:37 ms3 09/11 06:44 Order name: CBC with Diff; Complete Time: 07:33 ms3 09/11 06:44 Order name: Magnesium; Complete Time: 07:37 ms3 09/11 06:44 Order name: NT PRO-BNP; Complete Time: 07:37 ms3 09/11 06:44 Order name: PT-INR; Complete Time: 07:33 ms3 09/11 06:44 Order name: Troponin HS; Complete Time: 07:37 ms3 09/11 06:44 Order name: XRAY Chest (1 view); Complete Time: 07:33 ms3 09/11 06:44 Order name: Cardiac monitoring; Complete Time: 07:10 ms3 09/11 06:44 Order name: EKG - Nurse/Tech; Complete Time: 07:10 ms3 09/11 06:44 Order name: IV Saline Lock; Complete Time: 07:00 ms3 09/11 06:44 Order name: Labs collected and sent; Complete Time: 07:00 ms3 09/11 06:44 Order name: O2 Per Protocol; Complete Time: 07:00 ms3 09/11 06:44 Order name: O2 Sat Monitoring; Complete Time: 07:00 ms3 Administered Medications: No medications were administered Disposition Summary: 09/11/24 07:38 Discharge Ordered Notes: Location: Home sp3 Condition: Stable sp3 Diagnosis - Dyspnea, unspecified sp3 Followup: sp3 - With: Ismael Small MD - When: Upon discharge from the Emergency Department - Reason: Continuance of care Discharge Instructions: - Discharge Summary Sheet sp3 - Pulmonary Fibrosis sp3 Forms: - Medication Reconciliation Form sp3 - Antibiotic Education sp3 - Prescription Opioid Use sp3 - Patient Portal Instructions sp3 - Leadership Thank You Letter sp3 Signatures: Dispatcher [employer] EDME WilkinsNeo DO DO ms3 Jake Barnett MD MD sp3 Lima Garnica RN RN al5 Corrections: (The following items were deleted from the chart) 06:45 06:45 BASIC METABOLIC PANEL+C.LAB.BRZ ordered. EDMS EDMS 06:45 06:45 CBC+H.LAB.BRZ ordered. EDMS EDMS 06:45 06:45 MAGNESIUM+C.LAB.BRZ ordered. EDMS EDMS 06:45 06:45 PROBNP+C.LAB.BRZ ordered. EDMS EDMS 06:45 06:45 PROTIME (+INR)+COAG.LAB.BRZ ordered. EDMS EDMS 06:45 06:45 Troponin High Sensitivity+C.LAB.BRZ ordered. EDMS EDMS 06:45 06:45 Chest Single View+RAD.RAD.BRZ ordered. EDMS EDMS 06:49 06:45 78-year-old male with past medical history of myocardial infarction, tongue ms3 cancer, hypothyroidism, GERD presents to the emergency department via [facility] after he awoke this morning and his pulse ox showed a reading of 70s. Patient notes the pulse ox was reading 70s and 90s. Patient became anxious due to the reading according to EMS and called for an ambulance. Patient states he is on home oxygen at night.. ms3
--- NOTE | 2024-09-11 07:39 | ER ---
Nurse's Notes [facility] Name: Thad Morales Age: 78 yrs Sex: Male : 1945 Arrival Date: 09/11/2024 Time: 06:42 Bed 8 Private MD: Diagnosis: Dyspnea, unspecified Presentation: 09/11 06:43 Chief complaint: Patient states: states his pulse ox reading was reading low and got al5 anxious and wanted to be seen. Coronavirus screen: At this time, the client does not indicate any symptoms associated with coronavirus-19. Ebola Screen: No symptoms or risks identified at this time. Initial Sepsis Screen: Does the patient meet any 2 criteria? No. Patient's initial sepsis screen is negative. Does the patient have a suspected source of infection? No. Patient's initial sepsis screen is negative. Risk Assessment: Do you want to hurt yourself or someone else? Patient reports no desire to harm self or others. Onset of symptoms was September 11, 2024. 06:43 Method Of Arrival: EMS: [facility] al5 06:43 Acuity: ADARSH 3 al5 Triage Assessment: 06:43 General: Appears in no apparent distress. comfortable, Behavior is calm, cooperative. al5 Pain: Denies pain. EENT: No signs and/or symptoms were reported regarding the EENT system. Neuro: Level of Consciousness is awake, alert, obeys commands, Oriented to person, place, time, situation. Cardiovascular: Capillary refill < 3 seconds Patient's skin is warm and dry. Respiratory: Reports Airway is patent Respiratory effort is even, unlabored, Respiratory pattern is regular, symmetrical, Onset: The symptoms/episode began/occurred this morning, the patient has mild shortness of breath. GI: No signs and/or symptoms were reported involving the gastrointestinal system. : No signs and/or symptoms were reported regarding the genitourinary system. Derm: Skin is intact, Skin is pink, warm \T\ dry. normal. Musculoskeletal: No signs and/or symptoms reported regarding the musculoskeletal system. Historical: - Allergies: :43 No Known Allergies; al5 - PMHx: 06:43 Hypercholesterolemia; Hypothyroidism; Myocardial infarction; Pneumonia; throat cancer; al5 - PSHx: 06:43 HEART BYPASS 2017; al5 - Immunization history:: Adult Immunizations up to date. - Infectious Disease History:: Denies. - Social history:: Smoking status: Patient denies any tobacco usage or history of. Screenin:44 [facility] ED Fall Risk Assessment (Adult) History of falling in the last 3 months, al5 including since admission No falls in past 3 months (0 pts) Confusion or Disorientation No (0 pts) Intoxicated or Sedated No (0 pts) Impaired Gait No (0 pts) Mobility Assist Device Used No (0 pt) Altered Elimination No (0 pt) Score/Fall Risk Level 0 - 2 = Low Risk Oriented to surroundings, Maintained a safe environment, Hourly rounding (assess needs \T\ fall precautionary measures) done. Abuse screen: Denies threats or abuse. Denies injuries from another. Nutritional screening: No deficits noted. Tuberculosis screening: No symptoms or risk factors identified. Assessment: 06:43 Reassessment: see triage assessment. al5 07:47 Reassessment: Patient appears in no apparent distress at this time. Patient and/or ph family updated on plan of care and expected duration. Pain level reassessed. Patient is alert, oriented x 3, equal unlabored respirations, skin warm/dry/pink. Patient states feeling better. Patient states symptoms have improved. Vital Signs: 06:43 BP 118 / 61; Pulse 87; Resp 16; Temp 98.2; Pulse Ox 100% on 2 lpm NC; al5 07:06 Weight 55.34 kg; Height 5 ft. 7 in. ; al5 07:29 BP 118 / 56; Pulse 74; Resp 18; Pulse Ox 94% on 2 lpm NC; ph 07:06 Body Mass Index 19.11 (55.34 kg, 170.18 cm) al5 ED Course: 06:43 Arm band placed on right wrist. Patient placed in the treatment room, in view of staff al5 members, on oxygen, on pulse oximetry. 06:44 Patient arrived in ED. ms3 06:44 Neo Wilkins DO is Attending Physician. ms3 06:44 Patient has correct armband on for positive identification. Bed in low position. Call al5 light in reach. Side rails up X2. at bedside. Provided Education on: plan of care. 06:44 No provider procedures requiring assistance completed. Inserted saline lock: 20 gauge al5 in right forearm, using aseptic technique. Blood collected. Flushed with 10 mL NS. 06:57 Attending Physician role handed off by Neo Wilkins DO ms3 06:57 Jake Barnett MD is Attending Physician. ms3 07:00 Lima Garnica, RN is Primary Nurse. al5 07:03 Triage completed. al5 07:05 XRAY Chest (1 view) In Process Unspecified. EDMS 07:11 EKG done, by ED staff, reviewed by Jake Barnett MD. ph 07:37 Ismael Small MD is Referral Physician. sp3 07:48 IV discontinued, intact, bleeding controlled, No redness/swelling at site. Pressure ph dressing applied. Administered Medications: No medications were administered Medication: 06:44 VIS not applicable for this client. al5 Outcome: 07:38 Discharge ordered by . sp3 07:48 Patient left the ED. ph Signatures: Dispatcher [employer] EDFL Elisabeth Peres, RN RN Neo Wilkins DO DO ms3 Jake Barnett MD MD sp3 Lima Garnica, KENYA RN al5
[2024-09-11 07:55] VITALS: TEMP 98.2
[2024-09-11 07:57] VITALS: BP 118/56; O2SAT 94
--- NOTE | 2024-09-13 11:33 | EKG ---
Test Date: 2024-09-11 Test Time: 07:05:51 Baggage Handling Supervisor: THERESA MEASUREMENT RESULTS: Intervals: Rate: 80 AL: 134 QRSD: 80 QT: 376 QTc: 433 [place]: P: 51 AL: 134 QRS: 10 T: 32 INTERPRETIVE STATEMENTS: Normal sinus rhythm Cannot rule out Anterior infarct, age undetermined Abnormal ECG Compared to ECG 08/26/2024 20:39:31 Atrial flutter no longer present Myocardial infarct finding still present Electronically Signed On 09-13-24 11:29:35 CDT by Frederick Orona
== END 2024-09-11 07:48 | disposition home or self-care (01) ==
LOC: ER 06:42
DX: R06.00 Dyspnea, unspecified (principal); Z99.81 Dependence on supplemental oxygen; Z95.1 Presence of aortocoronary bypass graft; Z85.819 Personal history of malignant neoplasm of unspecified site of lip, oral cavity, and pharynx
CPT/HCPCS: 36415; 71045; 80048; 83735; 83880; 84484; 85025; 85610; 93005; 99284

== ENCOUNTER 2024-10-18 13:48 | Inpatient (IN) | payer OTHER ==
[2024-10-18 15:29] VITALS: BMI 19.1
[2024-10-18] MEDS ORDERED: GUAIFENESIN/DM 5 ML UCUP PO PRN (15:45)
[2024-10-18 16:04] LABS: Absolute Eosinophils 0.1 K/uL (0-0.5); Absolute Lymphocytes (CBC) 0.7 K/uL (0.7-4.9); Absolute Neutrophil 7.5 K/uL (1.8-8.0); Basophils % 0.1 % (0-1.3); Eosinophils % 1.3 % (0-4.4); Hematocrit 33.8 % (39.6-49.0); Hemoglobin 11.5 g/dL (13.6-17.9); Lymphocytes % 7.1 % (15.3-44.8); MCH 32.5 pg (27.0-35.0); MCHC 34.1 g/dL (32.0-36.0); MCV 95.4 fL (80-100); MPV 10.4 fL (7.6-11.3); Monocytes % 10.8 % (3.3-12.3); Neutrophils % 80.7 % (41.7-73.7); Platelets 110 thou/uL (152-406); RBC Red Blood Cell Count 3.55 M/uL (4.33-5.43); Red Cell Distribution Width 15.5 % (12.1-15.2)
[2024-10-18] MEDS: PIPER TAZO 3.375 GM in NA CHLORIDE 0.9% 100 ML IV SCH (16:04)
[2024-10-18] MEDS: GUAIFENESIN/DM 5 ML UCUP FT SCH (16:05)
[2024-10-18] MEDS: ALBUTEROL 2.5 MG/3 ML NEB SOL NEB SCH (16:15)
[2024-10-18] MEDS: IPRATROPIUM BROM 0.5MG/2.5ML NEB SCH (16:15)
[2024-10-18 16:24] LABS: Albumin 2.7 g/dL (3.4-5.0); Albumin/Globulin Ratio 0.7 (1.1-1.8); Anion Gap 8.3 mEq/L (5.0-15.0); Bilirubin Total 0.6 mg/dL (0.2-1.0); Potassium 4.3 mEq/L (3.5-5.1); Protein, Total 6.7 g/dL (6.4-8.2)
[2024-10-18] MEDS ORDERED: PIPER TAZO 3.375 GM in NA CHLORIDE 0.9% 100 ML IV SCH (17:00)
[2024-10-18] MEDS ORDERED: IPRATROPIUM BROM 0.5MG/2.5ML NEB SCH (19:00)
[2024-10-18] MEDS: ENOXAPARIN 30 MG/0.3 ML SQ SCH (21:54)
[2024-10-19] MEDS: PNEUMOCOCCAL VACCINE 0.5 ML IMVAC ONE (08:00)
[2024-10-19] MEDS ORDERED: ENOXAPARIN 30 MG/0.3 ML SQ SCH (09:00)
[2024-10-19] MEDS: AMLODIPINE 5 MG TAB PO SCH (10:19)
[2024-10-19] MEDS: ASPIRIN EC 81 MG TAB PO SCH (10:19)
[2024-10-19] MEDS: ATORVASTATIN 80 MG TAB PO SCH (10:19)
[2024-10-19] MEDS: PANTOPRAZOLE 40MG TABLET PO SCH (10:20)
[2024-10-19] MEDS: ACETAMINOPHEN 500 MG TAB PO PRN (22:05)
--- NOTE | 2024-10-20 00:22 | HP ---
Date of Admission: 10/18/2024 Chief Complaint: Cough, shortness of breath, and low oxygen level. History Of Present Illness: This is a 79-year-old pleasant male patient who has dysphagia and has a PEG tube that he uses for his nutritional purpose as well as all medication administration and does n ot eat or drink anything by mouth. The patient was doing fine in his normal usual state of health un til over the weekend, he had episode of gastroesophageal reflux and he ended up having aspiration, so his contacted me and this was on Friday and I did tele visit with him that included audio and video component and after I communicated with the patient, decision was made to start him on oral an tibiotics with instruction to go to the emergency room if his symptoms get worse. The patient had lo w-grade fever of 100.2 with cough and chest congestion, but when I evaluated him over the weekend, he did not have any obvious respiratory distress or shortness of breath. He looked very comfortable an d he has home oxygen, which he has not required in last 1 month, but after this episode of aspiration , his room air oxygen saturation dropped down into 87% to 88% range, so he started using oxygen 2 L/m inute and I encouraged him to keep the oxygen on all the time. With oxygen use, his oxygen saturatio n was around 90% to 93%. Prior to this episode of aspiration, his oxygen saturation on room air was around 95% to 97%. After we started him on Augmentin, his condition started to improve. Today, on a n outpatient basis, CT scan of the chest, which was scheduled by his blending coordinator and when he was at the hospital getting CAT scan, as per his blending coordinator's instruction the CAT scan was to be done in prone and supine position. Initially, he had a CAT scan done in supine position and after that as h e was placed in prone position, he immediately had episode of gastroesophageal reflux again resulting in aspiration, so test was terminated and the patient and patient's , as I had instructed over , did came to my office for evaluation. After the second episode of aspiration today, he w as noted to have lot more coughing to the extent that he was almost constantly coughing and appeared weaker than normal, appeared tired. After I examined and evaluated him, decision was made to admit jean-paul im to hospital after I communicated with the radiologist regarding the CAT scan results, which showed evidence of acute infiltrate in both lower lung irvin consistent with clinical concerns of aspirati on pneumonia and I recommended the patient to get admitted to the hospital, which he agreed and arran gements were made to admit him to the hospital directly. Allergies: TO CORN AND TOMATO. NO KNOWN DRUG ALLERGY. Medications: Medication list reviewed, which includes, Augmentin 500 mg 2 times a day, pantoprazole 40 mg daily, levothyroxine 75 mcg daily, atorvastatin 80 mg daily, aspirin 81 mg daily, amlodipine 2. 5 mg daily. Review of Systems: Respiratory: As mentioned above. Constitutional: As mentioned above. All other systems reviewed and negative. Past Medical History: Significant for chronic respiratory failure with hypoxia, pulmonary fibrosis, chronic diastolic heart failure, aspiration pneumonia, hypothyroidism, hypertension, mixed hyperlipid emia, coronary artery disease, benign prostatic hypertrophy, thrombocytopenia, carotid artery stenosi s, impaired fasting glucose. Tongue cancer. His tongue cancer was diagnosed in 2005, and was treate d with chemotherapy and radiation therapy. Past Surgical History: Significant for tonsillectomy. Family History: Father , details unknown. Mother had dementia. Social History: Negative for smoking. Use of alcohol negative. Physical Examination: Vital Signs: Height 5 feet 7 inches, weight 122 pounds, temperature 98.9, pulse 99, respiratory rate 20, blood pressure 122/60, oxygen saturation 95% with 2 L nasal cannula oxygen. General: Awake, alert, oriented, not in distress. HEENT: Head atraumatic, normocephalic. Conjunctivae nonerythematous. Sclerae white. Mouth, no thr ush or edema noted. Ears/Nose, no mass, lesion, discharge noted. Neck: Supple. No JVD, lymph nodes, bruit, thyromegaly noted. Lungs: The patient's bilateral good equal air entry has diffuse scattered rhonchi in all the lung fi elds with presence of crackles in bilateral lower lung irvin. Heart: Normal heart sounds, no murmur or gallop. Abdomen: The patient's abdomen is soft. No guarding, rigidity, tenderness, distention. Bowel sound s normal. No hepatosplenomegaly or bruit. The patient has a PEG tube present in the upper anterior abdominal wall. PEG tube insertion site appears normal. Extremities: No leg edema. No calf tenderness. Skin: No rash, ulcer, cellulitis. Lymphatics: No lymph node enlargement in neck, supraclavicular, infraclavicular region. Neuro: No focal neurological deficit. Chest: Unremarkable. External Genitalia: Deferred. Rectal: Deferred. Laboratory Data: CAT scan of the chest done today as outpatient shows bilateral lower lobe infiltrat e on top of chronic fibrotic lung changes as per my discussion with the radiologist. WBC 9.3, hemogl obin 11.5, platelets 110. Sodium 137, potassium 4.3, chloride 105, bicarb 28, BUN 24, creatinine 0.7 7, glucose 154. Liver function tests unremarkable. ProBNP 462. Impression: 1. Aspiration pneumonia. 2. Chronic respiratory failure with hypoxia, with acute exacerbation. 3. Thrombocytopenia. 4. Chronic diastolic heart failure. 5. Coronary artery disease. 6. Hypertension. 7. Mixed hyperlipidemia. 8. Hypothyroidism. 9. Impaired fasting glucose. 10. Benign prostatic hypertrophy. 11. Tongue cancer. 12. Carotid artery stenosis. Plan: We will go ahead and admit the patient to hospital for further evaluation and management of th is problem. The patient is appropriate for inpatient and [facility] We will start him on IV Zosyn 3.375 g every 8 hours and albuterol and Atrovent nebulizer treatmen t every 6 hours per order. Cough medicine was ordered for symptomatic relief. For respiratory failu re with hypoxia, we will continue his oxygen at 2 L/minute nasal cannula. The patient was instructed to stay upright. DVT prophylaxis will be given using Lovenox per order and the patient was encourag ed to ambulate as tolerated. For hypertension, we will continue his antihypertensive medication amlo dipine per order, monitor blood pressure, if necessary adjust medication. For hyperlipidemia, contin ue atorvastatin per order and no need for further intervention. For gastroesophageal reflux disease, the patient is on pantoprazole and we will continue that and no need for further intervention on it. For hypothyroidism, we will continue levothyroxine and will not require any further intervention. For his chronic pulmonary fibrosis, he is under care of blending coordinator in [place], and we will encoura ge him to continue to follow up with his blending coordinator upon discharge from the hospital. Total time spent 80 minutes including review of last 2 office visit record, review of last hospital a dmission record from 08/27/2024, evaluation and management for this hospital admission. I will see h tomorrow for followup. JOHN/MODL Voice ID: [id number]
[2024-10-20] MEDS: LEVOTHYROXINE SOD 0.075 MG TAB PO SCH (06:21)
--- NOTE | 2024-10-20 07:48 | PN ---
Date of Progress Note: 10/19/2024 Subjective: Patient was seen this morning for followup. He was sitting upright in bed. His wa s with him. Overall, his cough has improved and he has felt better since his admission to the [facility]. He is tolerating his PEG tube feeding well. Objective: Vital Signs: Reviewed. HEENT: Unremarkable. Lungs: Bilateral good equal air entry. All the wheezing that he had yesterday noted upon admission has cleared up and now he has some bilateral basal crackles, which is chronic finding due to his pulm onary fibrosis. Cardiac: Heart sounds normal. Abdomen: Soft. Bowel sounds normal. No guarding, rigidity, tenderness, distention. Extremities: No leg edema. Impression: 1. Aspiration pneumonia. 2. Hypertension. 3. Gastroesophageal reflux disease. 4. Pulmonary fibrosis. Plan: Continue current PEG tube feeding. He is using formula that has about 375 calories in 250 cc can and I did talk to patient and the patient's and we discussed about using only 4 cans a day, so that we will give him 1500 calories a day and try not to exceed more than 4 cans a day because thi s reflects an aspiration problem. He was getting 4-1/2 to 5 cans at home. We will continue his anti hypertensive medication. Continue pantoprazole per order. Continue current Zosyn nebulizer treatmen t and oxygen now. We will see him tomorrow for followup, possible discharge to go home tomorrow depending on his condition. JOHN/MODL Voice ID: [id number] Report ID: [id number]
[2024-10-20] MEDS: Levofloxacin500mg IV 500 MG/100 ML BAG IV SCH (08:38)
[2024-10-20] MEDS: levoFLOXacin 500 MG TAB PO SCH (12:04)
--- NOTE | 2024-10-20 20:53 | PN ---
Date of Progress Note: 10/20/2024 Subjective: The patient was seen for followup this morning. His was present with him at bedsid e. He had low-grade fever yesterday evening and responded well to Tylenol. Overnight, has not had any other complaints. The patient coughs up yellowish colored thick mucus. Objective: Vital Signs: Reviewed. HEENT: Unremarkable. Lungs: Bilateral good equal air entry. Presence of basal rales unchanged and today I did hear wheez ing scattered in all the lung irvin and it is not as bad as what it was on the day of admission, but definitely noted today. Yesterday, he did not have any wheezing on his lung exam. Heart: Sounds normal. Abdomen: Soft. Bowel sounds normal. No guarding, rigidity, tenderness, distention. Extremities: No leg edema. Impression: 1. Aspiration pneumonia. 2. Pulmonary fibrosis. 3. Hypertension. 4. Gastroesophageal reflux disease. Plan: We will go ahead and continue Zosyn. Sputum Gram stain and culture was ordered and Levaquin 5 00 mg IV daily was ordered and nurse contacted me after half of the dose of Levaquin was given that p atient was having irritation around the IV infusion site while Levaquin was being given, so IV Levaqu in administration was discontinued and I ordered Levaquin 500 mg p.o. daily to be started as of today . We will follow up on sputum Gram stain and culture. The patient has bronchiectasis and he is at h igh risk of having pseudomonas infection and details were discussed with him and his . I will se e him tomorrow. Possible discharge to go home tomorrow depending on his condition. JOHN/MODL Voice ID: [id number] Report ID: [id number]
[2024-10-21 08:46] VITALS: TEMP 97.8
[2024-10-21 08:54] VITALS: BP 96/52
[2024-10-21 09:50] VITALS: O2SAT 96
--- NOTE | 2024-10-25 06:45 | DS ---
Date of Discharge: 10/21/2024 Physical Examination: HEENT: Unremarkable. Lungs: Clear to auscultation except presence of rales noted in lower lung irvin. Not in any respiratory distress. No wheezing. Cardiac: Heart sounds normal. Abdomen: Soft. Bowel sounds normal. No guarding, rigidity, tenderness, or distention. Extremities: No leg edema. Laboratory Data: Upon admission, WBC 9.3, hemoglobin 11.5, platelets 110. Sodium 137, potassium 4.3, chloride 105 bicarb 28, BUN 24, creatinine 0.77, glucose 154. Liver function tests unremarkable. ProBNP 462. Discharge Medications And Instructions: 1. Continue all prior home medication. 2. Start following new medication and prescription was sent to the pharmacy from my office. a. Augmentin 875 mg take 1 tablet by mouth 2 times a day. b. Levaquin 500 mg take 1 tablet by mouth daily. 3. Patient uses PEG tube feeding for all his medications and nutrition and this oral medication will be taken per PEG tube. 4. Follow up at my office next week on Friday or Friday. 5. Follow up with control specialist, Dr. Banks tomorrow as per scheduled appointment. Hospital Course: This is a 79-year-old male patient admitted to hospital with cough, shortness of breath, and low oxygen level. Please see dictated H and P for more information. The patient was admitted to the hospital on 10/18/2024, after he was evaluated at the office with aspiration pneumonia problem. The patient had outpatient CAT scan done, which revealed evidence of aspiration pneumonia in both lower lung irvin. This was done today as per request from his control specialist, and after this CAT scan was done, he came to see me and results reviewed with the radiologist and the patient was admitted to the hospital. See dictated H and P for more details. The patient was started on IV Zosyn, and after admission, his lung findings improved very well. The patient was feeling much better, but subsequent day we noticed more wheezing. The patient has bronchiectasis and he was noted to be coughing up really very thick yellow to greenish colored mucus and with that I was concerned about possibility of pseudomonas infection, so sputum culture was ordered and the patient was started on Levaquin. While he was getting first dose of IV Levaquin, he had some irritation around the IV infusion site. There was no generalized reaction. So, when nurse contacted me, IV infusion was discontinued and oral Levaquin was started, which patient has tolerated very well without any side effect. The patient has appointment to see his control specialist tomorrow. He was encouraged to keep that appointment. The patient was discharged to go home in stable and improved condition, and I will see him next week for followup. The patient is scheduled to have colonoscopy for followup on the polyp, which is scheduled for next week and I have advised him to cancel that procedure and reschedule it at a later date once his pulmonary status is more stable. Final Diagnoses: 1. Aspiration pneumonia. 2. Chronic respiratory failure with hypoxia, with acute exacerbation. 3. Thrombocytopenia. 4. Chronic diastolic heart failure. 5. Coronary artery disease. 6. Hypertension. 7. Mixed hyperlipidemia. 8. Hypothyroidism. 9. Impaired fasting glucose. 10. Benign prostatic hypertrophy. 11. Tongue cancer. 12. Carotid artery stenosis Total time spent 40 minutes. JOHN/MODL Voice ID: [id number] Report ID: [id number] GLORIA
== END 2024-10-21 10:51 | disposition home or self-care (01) | DRG 177 ==
LOC: 2ND 13:55
PROVIDERS: ADMIT Internal Medicine; ATTEND Internal Medicine
DX: J69.0 Pneumonitis due to inhalation of food and vomit (principal); J96.21 Acute and chronic respiratory failure with hypoxia; I50.32 Chronic diastolic (congestive) heart failure; I11.0 Hypertensive heart disease with heart failure; E03.9 Hypothyroidism, unspecified; E78.2 Mixed hyperlipidemia; J84.10 Pulmonary fibrosis, unspecified; D69.6 Thrombocytopenia, unspecified; I65.29 Occlusion and stenosis of unspecified carotid artery; K21.9 Gastro-esophageal reflux disease without esophagitis; N40.0 Benign prostatic hyperplasia without lower urinary tract symptoms; I25.10 Atherosclerotic heart disease of native coronary artery without angina pectoris; R73.01 Impaired fasting glucose; Z79.82 Long term (current) use of aspirin; Z99.81 Dependence on supplemental oxygen; Z91.018 Allergy to other foods; Z79.890 Hormone replacement therapy; Z79.899 Other long term (current) drug therapy; Z85.810 Personal history of malignant neoplasm of tongue
CPT/HCPCS: 36415; 71250; 80053; 83735; 83880; 85025; 87070; 87077; 87186; 87205; 94640; J1650; J2543; J7613; J7644